=== PATIENT | female | born 1945 | race Caucasian/White ===

== ENCOUNTER → 2018-01-17 02:30 | Outpatient (CLI) | payer MEDICARE, SELFPAY ==
[2018-01-17 12:07] LABS: Abs Immature Grans 0.02 k/cumm (0.0-0.09); Absolute Basophil Count 0.04 k/cumm (0.0-0.2); Absolute Eosinophil Count 0.21 k/cumm (0.0-0.7); Absolute Monocyte Count 0.74 k/cumm (0.11-0.7); Absolute Neutrophil Count 4.89 k/cumm (1.2-6.7); Basophils % 0.5; Eosinophils % 2.9; HCT 37.1 % (36.0-46.0); Immature Grans % 0.3; Lymphocytes % 19.2; Mean Corpuscular Hemoglobin 34.8 pg (27.0-33.0); Mean Corpuscular Volume 99.2 fL (80-95); Mean Platelet Volume 10.4 fL (8.0-11.0); Monocytes % 10.1; Platelet Count 293 x1000/uL (130-400); RBC 3.74 m/cumm (4.00-5.20); RBC Distribution Width 17.9 % (11.7-14.6)
[2018-01-17 12:14] LABS: ALT 11 U/L (12-78); AST 28 U/L (15-37); Albumin 3.7 g/dL (3.4-5.0); Alkaline Phosphatase 104 U/L (46-116); Anion Gap 11.1 mmol/L (3-11); BUN 11 mg/dL (7-18); Bilirubin, Total 0.7 mg/dL (0.2-1.0); CO2 23.9 mmol/L (21.0-32.0); CREATININE 1.08 mg/dL (0.55-1.02); Calcium 8.9 mg/dL (8.5-10.1); Chloride 103 mmol/L (98-107); Estimated GFR 50.01 (mL/min/1.73m2); Glucose 126 mg/dL (70-100); Sodium 138 mmol/L (136-145); Total Protein 7.5 g/dL (6.4-8.2)
[2018-01-18 10:16] LABS: CEA 106.2 ng/ml
== END ==
PROVIDERS: PCP General Practice; Visit Provider Internal Medicine Medical Oncology
DX: C18.9 Malignant neoplasm of colon, unspecified (principal); C78.00 Secondary malignant neoplasm of unspecified lung; C18.6 Malignant neoplasm of descending colon
CPT/HCPCS: 36415; 80053; 82378; 85025

== ENCOUNTER 2018-02-08 02:00 | Outpatient (CLI) | payer MEDICARE, SELFPAY ==
[2018-02-08 13:29] LABS: Abs Immature Grans 0.02 k/cumm (0.0-0.09); Absolute Basophil Count 0.03 k/cumm (0.0-0.2); Absolute Eosinophil Count 0.16 k/cumm (0.0-0.7); Absolute Lymphocyte Count 1.36 k/cumm (1.2-3.4); Absolute Monocyte Count 0.72 k/cumm (0.11-0.7); Absolute Neutrophil Count 5.35 k/cumm (1.2-6.7); Basophils % 0.4; Eosinophils % 2.1; HCT 35.8 % (36.0-46.0); HGB 12.4 g/dL (12.0-15.5); Immature Grans % 0.3; Lymphocytes % 17.8; Mean Corp. HGB Concentration 34.6 g/dL (32.0-36.0); Mean Corpuscular Hemoglobin 34.3 pg (27.0-33.0); Mean Corpuscular Volume 98.9 fL (80-95); Mean Platelet Volume 10.2 fL (8.0-11.0); Monocytes % 9.4; Platelet Count 291 x1000/uL (130-400); RBC 3.62 m/cumm (4.00-5.20); RBC Distribution Width 17.9 % (11.7-14.6); White Blood Cell Count 7.64 k/cumm (4.4-10.8)
[2018-02-08 13:42] LABS: ALT 10 U/L (12-78); AST 34 U/L (15-37); Albumin 3.6 g/dL (3.4-5.0); Alkaline Phosphatase 112 U/L (46-116); Anion Gap 9.8 mmol/L (3-11); BUN 12 mg/dL (7-18); Bilirubin, Total 1.1 mg/dL (0.2-1.0); CO2 29.2 mmol/L (21.0-32.0); CREATININE 0.98 mg/dL (0.55-1.02); Calcium 9.1 mg/dL (8.5-10.1); Chloride 102 mmol/L (98-107); Estimated GFR 55.95 (mL/min/1.73m2); Glucose 136 mg/dL (70-100); Sodium 141 mmol/L (136-145); Total Protein 7.4 g/dL (6.4-8.2)
== END 2018-02-08 02:20 ==
PROVIDERS: PCP General Practice; Visit Provider Internal Medicine Medical Oncology
DX: C18.9 Malignant neoplasm of colon, unspecified (principal); C78.00 Secondary malignant neoplasm of unspecified lung
CPT/HCPCS: 36415; 80053; 85025

== ENCOUNTER 2018-03-31 10:54 | Inpatient (IN) | payer MEDICARE, SELFPAY ==
[2018-03-31] VITALS (69 sets, daily range): BP systolic 116–143; BP diastolic 51–99; PULSE 74–116; RESP 11–26; TEMP 36.7–37.7; O2SAT 92–100
--- NOTE | 2018-03-31 11:21 | DI.RAD_ITS ---
SYMPTOM/DIAGNOSIS: WEAKNESS PORTABLE AP CHEST: The patient is rotated on this examination. There is no infiltrate. A mass is superimposed over the central chest. The heart is grossly within normal limits in size. Additional imaging of this patient is suggested such as a PA and lateral examination.
--- NOTE | 2018-03-31 11:23 | W.ED.GENAD ---
Discharge Plan Disposition Patient Disposition: [facility] INPATIENT Condition: Serious Discharge Details Chief Complaint: GenMedical Clinical Impression: Non-sustained ventricular tachycardia, Colon cancer metastasized to lung, Acute hypokalemia Reason For Visit: KAYLEIGH Primary Care Provider: Hansel Casillas ED Provider: Fortino Pineda Home Meds and New Rx's Prescriptions: No Action multivitamin 1 EACH capsule 1 ea PO DAILY RF: 0 Medical Decision Making 72-year-old female with history of colon cancer status post resection and chemotherapy, metastatic disease to her lung with recurrence, here with failure to thrive at home, generalized weakness, unable to ambulate. Patient dehydrated. She was given IV fluid bolus. Labs reviewed and noted to hypokalemia. Will give potassium 20 mEq IV. Of note patient did have a run of nonsustained ventricular tachycardia captured on monitor where she was symptomatic with dizziness here in the emergency department. ECG was reviewed and interpreted by me: Sinus rhythm 76 bpm, normal axis, LVH, nondiagnostic. Chest x-ray interpreted by radiology: Posterior left chest mass with no infiltrate. I called and spoke with Dr. Sidhu who will admit the patient to telemetry. Palliative care consult was made and I spoke with Dr. Pink. HPI General Mode of arrival: EMS. Date/Time Provider Initiated Documentation: 03/31/18 11:09. Limitations to Documentation: no limitations. Information obtained by: patient and EMS. HPI Narrative: 72-year-old female with metastatic colon cancer to the lung, on maintenance chemotherapy, here with generalized weakness over the past 2 weeks, now severe, patient has not been able to get out of her bed for the past 1 week. Friends found her in her bed with severe weakness. She has not been able to get to the phone. She attempted to get out of bed and fell and crawled back into her bed. She had defecated and urinated in the bed. She has not had anything to eat or for a few days. Patient notes she is tired, feels generally ill and achy. She denies any focal pain. No assoc cough. Related Data Home Medications Medication Instructions Recorded Confirmed multivitamin 1 ea PO DAILY 08/19/12 03/31/18 Allergies Allergy/AdvReac Type Severity Reaction Status Date / Time aspirin AdvReac Intermediate Unverified 03/31/18 11:23 meperidine HCl [From Demerol] AdvReac Intermediate Nausea Unverified 03/31/18 11:23 oxaliplatim Allergy Severe Anaphylaxsi Uncoded 03/31/18 11:23 s General Stated Complaint: GenMedical RAGINI: 2 Review of Systems Review of Systems All systems reviewed & are unremarkable except as noted in HPI and below Constitutional Reports body ache(s) and Reports weakness Cardiovascular Denies chest pain Respiratory Denies cough Neurologic Reports weakness PFSH Medical History Colon cancer metastasized to lung (Acute) Social History Smoking/Tobacco Use Status: Former Tobacco Use Exam Const General: cooperative, no acute distress and frail appearing Nutritional Appearance: cachectic Orientation: alert, awake and oriented x3 HENMT Head: normocephalic and atraumatic Mouth: mucous membranes dry Eyes Conjunctivae: normal conjunctivae Sclera: normal sclerae EOM: EOM intact bilaterally Neck Neck: trachea midline and supple Resp Auscultation: clear to auscultation bilaterally, no rales, no rhonchi and no wheezes Cardio Jugular venous pressure: no JVD Rate: regular rate and not tachycardic Rhythm: regular rhythm GI Palpation: soft, not firm, no guarding, no masses, not rigid and nontender Back/Spine/Pelvis Pelvis: no pain with anterior-posterior compression and no pain with lateral compression Skin General skin exam: no rashes or lesions noted Neuro General: alert, awake, oriented x3, tone abnormal and moves all extremities Speech: speech normal Motor: strength abnormal (3-4/5 all ext ) Extrem General: no edema Psych Appearance: grossly normal Mental Status: mental status grossly normal Speech and Movement: speech and movement normal Course Vital Signs Temperature 36.9 C 03/31/18 11:17 Pulse 96 H 03/31/18 11:17 Respiratory Rate 14 03/31/18 11:17 Blood Pressure 117/89 03/31/18 11:17 Pulse Oximetry 99 03/31/18 11:17 Temperature 36.9 C 03/31/18 11:17 Temperature Source Temporal Artery Scan 03/31/18 11:17 Pulse 96 H 03/31/18 11:17 Respiratory Rate 14 03/31/18 11:17 Respiratory Effort 03/31/18 11:21 Blood Pressure 117/89 03/31/18 11:17 Blood Pressure Position Supine 03/31/18 11:17 Pulse Oximetry 99 03/31/18 11:17 Oxygen Delivery Method Room Air 03/31/18 11:17 Oxygen Flow Rate 0 03/31/18 11:17 Pain Level 4 03/31/18 11:17
--- NOTE | 2018-03-31 11:27 | ED.GENADUL_ITS ---
Discharge Plan Disposition Patient Disposition: [facility] INPATIENT Condition: Serious Discharge Details Chief Complaint: GenMedical Clinical Impression: Non-sustained ventricular tachycardia, Colon cancer metastasized to lung, Acute hypokalemia Reason For Visit: [facility]LEIGH Primary Care Provider: Hansel Casillas ED Provider: Fortino Pineda Home Meds and New Rx's Prescriptions: No Action multivitamin 1 EACH capsule 1 ea PO DAILY RF: 0 Medical Decision Making 72-year-old female with history of colon cancer status post resection and chemotherapy, metastatic disease to her lung with recurrence, here with failure to thrive at home, generalized weakness, unable to ambulate. Patient dehydrated. She was given IV fluid bolus. Labs reviewed and noted to hypokalemia. Will give potassium 20 mEq IV. Of note patient did have a run of nonsustained ventricular tachycardia captured on monitor where she was symptomatic with dizziness here in the emergency department. ECG was reviewed and interpreted by me: Sinus rhythm 76 bpm, normal axis, LVH, nondiagnostic. Chest x-ray interpreted by radiology: Posterior left chest mass with no infiltrate. I called and spoke with Dr. Sidhu who will admit the patient to telemetry. Palliative care consult was made and I spoke with Dr. Pink. HPI General Mode of arrival: EMS . Date/Time Provider Initiated Documentation: 03/31/18 11:09 . Limitations to Documentation: no limitations . Information obtained by: patient and EMS . HPI Narrative: 72-year-old female with metastatic colon cancer to the lung, on maintenance chemotherapy, here with generalized weakness over the past 2 weeks, now severe, patient has not been able to get out of her bed for the past 1 week. Friends found her in her bed with severe weakness. She has not been able to get to the phone. She attempted to get out of bed and fell and crawled back into her bed. She had defecated and urinated in the bed. She has not had anything to eat or for a few days. Patient notes she is tired, feels generally ill and achy. She denies any focal pain. No assoc cough. Related Data Home Medications Medication Instructions Recorded Confirmed multivitamin 1 ea PO DAILY 08/19/12 03/31/18 Allergies Allergy/AdvReac Type Severity Reaction Status Date / Time aspirin AdvReac Intermediate Unverified 03/31/18 11:23 meperidine HCl [From Demerol] AdvReac Intermediate Nausea Unverified 03/31/18 11 :23 oxaliplatim Allergy Severe Anaphylaxsi Uncoded 03/31/18 11:23 s General Stated Complaint: GenMedical RAGINI: 2 Review of Systems Review of Systems All systems reviewed & are unremarkable except as noted in HPI and below Constitutional Reports body ache(s) and Reports weakness Cardiovascular Denies chest pain Respiratory Denies cough Neurologic Reports weakness PFSH Medical History Colon cancer metastasized to lung (Acute) Social History Smoking/Tobacco Use Status: Former Tobacco Use Exam Const General: cooperative, no acute distress and frail appearing Nutritional Appearance: cachectic Orientation: alert, awake and oriented x3 HENMT Head: normocephalic and atraumatic Mouth: mucous membranes dry Eyes Conjunctivae: normal conjunctivae Sclera: normal sclerae EOM: EOM intact bilaterally Neck Neck: trachea midline and supple Resp Auscultation: clear to auscultation bilaterally, no rales, no rhonchi and no wheezes Cardio Jugular venous pressure: no JVD Rate: regular rate and not tachycardic Rhythm: regular rhythm GI Palpation: soft, not firm, no guarding, no masses, not rigid and nontender Back/Spine/Pelvis Pelvis: no pain with anterior-posterior compression and no pain with lateral compression Skin General skin exam: no rashes or lesions noted Neuro General: alert, awake, oriented x3, tone abnormal and moves all extremities Speech: speech normal Motor: strength abnormal (3-4/5 all ext ) Extrem General: no edema Psych Appearance: grossly normal Mental Status: mental status grossly normal Speech and Movement: speech and movement normal Course Vital Signs Temperature 36.9 C 03/31/18 11:17 Pulse 96 H 03/31/18 11:17 Respiratory Rate 14 03/31/18 11:17 Blood Pressure 117/89 03/31/18 11:17 Pulse Oximetry 99 03/31/18 11:17 Temperature 36.9 C 03/31/18 11:17 Temperature Source Temporal Artery Scan 03/31/18 11:17 Pulse 96 H 03/31/18 11:17 Respiratory Rate 14 03/31/18 11:17 Respiratory Effort 03/31/18 11:21 Blood Pressure 117/89 03/31/18 11:17 Blood Pressure Position Supine 03/31/18 11:17 Pulse Oximetry 99 03/31/18 11:17 Oxygen Delivery Method Room Air 03/31/18 11:17 Oxygen Flow Rate 0 03/31/18 11:17 Pain Level 4 03/31/18 11:17
[2018-03-31] MEDS: Lactated Ringers 500 ML IV (11:30)
[2018-03-31 11:39] LABS: Abs Immature Grans 0.01 k/cumm (0.0-0.09); Absolute Basophil Count 0.01 k/cumm (0.0-0.2); Absolute Eosinophil Count 0.01 k/cumm (0.0-0.7); Absolute Lymphocyte Count 0.64 k/cumm (1.2-3.4); Basophils % 0.1; Eosinophils % 0.1; HCT 36.3 % (36.0-46.0); HGB 12.4 g/dL (12.0-15.5); Immature Grans % 0.1; Lymphocytes % 6.6; Mean Corp. HGB Concentration 34.2 g/dL (32.0-36.0); Mean Corpuscular Hemoglobin 33.8 pg (27.0-33.0); Mean Corpuscular Volume 98.9 fL (80-95); Mean Platelet Volume 10.2 fL (8.0-11.0); Monocytes % 8.3; Neutrophils % 84.8; Platelet Count 295 x1000/uL (130-400); RBC 3.67 m/cumm (4.00-5.20); RBC Distribution Width 16.1 % (11.7-14.6); White Blood Cell Count 9.67 k/cumm (4.4-10.8)
[2018-03-31 11:54] LABS: ALT 22 U/L (12-78); AST 47 U/L (15-37); Albumin 3.3 g/dL (3.4-5.0); Alkaline Phosphatase 96 U/L (46-116); Anion Gap 18.6 mmol/L (3-11); BUN 29 mg/dL (7-18); Bilirubin, Total 1.3 mg/dL (0.2-1.0); CO2 24.4 mmol/L (21.0-32.0); Calcium 9.6 mg/dL (8.5-10.1); Chloride 103 mmol/L (98-107); Glucose 107 mg/dL (70-100); Magnesium 1.8 mg/dL (1.8-2.4); Potassium 3.1 mmol/L (3.5-5.1); Sodium 146 mmol/L (136-145); Total Protein 7.2 g/dL (6.4-8.2)
[2018-03-31 11:55] LABS: Troponin I < 0.02 ng/mL (0.00-0.06)
--- NOTE | 2018-03-31 12:04 | PDOC.ERCMPRO ---
Care Management Progress Note 03/31-Patient presented to the Emergency Department via [facility]. Per [facility], patient was found on couch, unable to get off of couch for days, urine and feces every where. Last seen 9 days ago by her friend. Friend arrived at Magalis's home this morning and couldn't get her to answer door. Police were called and they entered home to find Magalis lying on the couch in urine and feces. [facility] states the house was very cold, no heat. Magalis sees oncology every 6 weeks at [facility] for Colon Ca. with mets to the lungs. Used to see Dr. Milan but she will be seeing a different oncologist at her next visit. Magalis does not know the name of the new oncologist as it will be her first time seeing him. Magalis states she is on a maintenance drug that she takes at home. Dr. Casillas is Magalis's PCP but she hasn't been to see him since 2013 (verified with Dr. Casillas's lipcoat sprayer) as the oncologists have been managing her health. Met with Magalis and her friend Ana, who found her this morning, to discuss the home situation. Magalis states that she tried to get to the phone. She attempted to get off the couch several times but was weak and fell to the floor. Magalis states she then crawled back onto the couch. Magalis states she could not reach the phone. Magalis states she has not ate in over five days. Friend Ana said she tried calling and there was no answer. After multiple attempts to reach Magalis, she went to check on her and that's when the police were called. Ana stated she was calling to have furnace fixed, Magalis stated she had fuel delivered a week or so ago and thinks there is something wrong with boiler. Magalis has no services or assisted devices, prior to two weeks ago, she was completely independent and driving. Friend Peace is caring for cat for which Magalis is very concerned about. Discussed family with Magalis and she states she has no family and that her friends are her family. [facility]. Called Dali in access and she will update the chart. Friend Ana spoke with me in the hallway and stated that Magalis's house is inhabitable, it has not been cleaned in years. She can not go back there and live. Explained to Ana that Magalis has the right to go home and no one can prevent that. Also explained that Magalis's home situation will be addressed prior to discharge. Dr. Pamela Pineda requested Palliative Consult and he has spoken with Dr. Pink. Order in and this CM will send to Palliative office. Discussed with Magalis her home situation. Possibility that she may need a rehab stay prior to returning home. Brief over view on home health services, assisted devices, meals on wheels, Case Management through [place] [facility] Aging, and life line. Magalis states she is definitely interested in life line. This CM has reported off to inpatient care management as patient is being admitted.
--- NOTE | 2018-03-31 12:35 | CMPROGNOTE_ITS ---
Care Management Progress Note 03/31-Patient presented to the Emergency Department via [facility]. Per [facility], patient was found on couch, unable to get off of couch for days, urine and feces every where. Last seen 9 days ago by her friend. Friend arrived at Magalis's home this morning and couldn't get her to answer door. Police were called and they entered home to find Magalis lying on the couch in urine and feces. [facility] states the house was very cold, no heat. Magalis sees oncology every 6 weeks at [facility] for Colon Ca. with mets to the lungs. Used to see Dr. Milan but she will be seeing a different oncologist at her next visit. Magalis does not know the name of the new oncologist as it will be her first time seeing him. Magalis states she is on a maintenance drug that she takes at home. Dr. Casillas is Magalis's PCP but she hasn't been to see him since 2013 (verified with Dr. Casillas's hospital coordinator) as the oncologists have been managing her health. Met with Magalis and her friend Ana, who found her this morning, to discuss the home situation. Magalis states that she tried to get to the phone. She attempted to get off the couch several times but was weak and fell to the floor. Magalis states she then crawled back onto the couch. Magalis states she could not reach the phone. Magalis states she has not ate in over five days. Friend Ana said she tried calling and there was no answer. After multiple attempts to reach Magalis, she went to check on her and that's when the police were called. Ana stated she was calling to have furnace fixed, Magalis stated she had fuel delivered a week or so ago and thinks there is something wrong with boiler. Magalis has no services or assisted devices, prior to two weeks ago, she was completely independent and driving. Friend Peace is caring for cat for which Magalis is very concerned about. Discussed family with Magalis and she states she has no family and that her friends are her family. [facility] has [facility] that [facility]. Called Dali in access and she will update the chart. Friend Ana spoke with me in the hallway and stated that Magalis's house is inhabitable, it has not been cleaned in years. She can not go back there and live. Explained to Ana that Magalis has the right to go home and no one can prevent that. Also explained that Magalis's home situation will be addressed prior to discharge. Dr. Pamela Pineda requested Palliative Consult and he has spoken with Dr. Pink. Order in and this CM will send to Palliative office. Discussed with Magalis her home situation. Possibility that she may need a rehab stay prior to returning home. Brief over view on home health services, assisted devices, meals on wheels, Case Management through [place] on Aging, and life line. Magalis states she is definitely interested in life line. This CM has reported off to inpatient care management as patient is being admitted.
[2018-03-31] MEDS: POTASSIUM CHLORIDE 20 MEQ/100 ML BAG 50 MEQ IVPB (13:37)
--- NOTE | 2018-03-31 17:35 | W.PM.HP.N ---
Date of service: 03/31/18 Time of Service: 17:35 Assessment and Plan (1) Colon cancer metastasized to lung: Current visit: No Status: Acute With generalized weakness and failure to thrive. She has been on maintenance chemo with Xeloda. Her visit note from her last oncology appointment notes worsening tumor marker. She is clearly declining. She has lost a significant amount of weight in recent months. Plan to contact her oncologist tomorrow to discuss her case. Plan to give IV fluids and replace electrolytes. UA pending to rule out UTI. Analgesics and antiemetics ordered for PRN use. Palliative care following. She desires to be [employer] but would accept IV fluids and antibiotics. Continue supportive measures. (2) Hypokalemia: Current visit: Yes Status: Acute She has received supplementation. Reassess potassium in the morning. (3) Discharge planning issues: Current visit: Yes Status: Acute She is a DNR/DNI. She has been seen by palliative care. She desires comfort measures only, however, she will accept IV fluids and antibiotics. We will plan to give her IV fluids overnight and replace her electrolytes and reassess in the morning. She may be a candidate for hospice if she is interested. (4) DVT prophylaxis: Current visit: Yes Status: Acute Subcutaneous Lovenox. History of Present Illness Chief Complaint: Weakness, failure to thrive, diarrhea Narrative: Magalis is a very pleasant 72 year old female with a history of Colon cancer with lung metastasis, with history of colon resection, currently taking oral chemotherapy, Xeloda, who presented to the emergency department today with generalized weakness. She reports that she has been in bed for 5-6 days, she tried to get up out of bed 3 times and fell every time and had to pull herself back into bed. She was covered in feces and urine as she was unable to get to the bathroom. She had not had anything to eat or drink in several days. Her friend went to her house to check on her and the door was locked so she contacted authorities. At that time she was transported to the hospital. She appeared very dry on presentation. In the emergency department, she had labs drawn which revealed hypokalemia with a potassium of 3.1, for which she received supplementation. Her BUN was elevated at 29. She was noted to have a run of nonsustained ventricular tachycardia captured on monitor where she was symptomatic with dizziness. She had an ECG which revealed Normal Sinus rhythm 76 bpm, normal axis, LVH, nondiagnostic. Her chest x-ray revealed Posterior left chest mass with no infiltrate. She received IV fluids. Given that she has generalized weakness with failure to thrive and inability to ambulate as well as hypokalemia in the setting of Colon cancer with mets, she was admitted to the med/surg floor for further evaluation and management. She was seen by Dr. Pink, Palliative care, who discussed code status and goals of care with her. She has verbalized that she would like comfort care, she is open to receiving IV fluids and antibiotics, but does not want treatment further than that. She reports feeling sore after laying in bed for so many days. She denies having any fevers or chills, just feels very weak. She has no shortness of breath, cough or wheezing. No chest pain/pressure, palpitations, edema. No nausea, vomiting, she does have diarrhea which is chronic and related to her oral chemotherapy. She denies any skin breakdown from being in bed, but she does have a cutaneous reaction to the palms of her hands related to her chemo. She notes that her toe nails have gotten of her control. She denies any other concerns. Review of Systems Review of Systems All systems reviewed & are unremarkable except as noted in HPI and below PFSH Medical History Colon cancer metastasized to lung (Acute) Frequent falls (Acute) History of herniated intervertebral disc (Acute) Hunger, thirst, exposure, and neglect (Acute) Malignant cachexia (Acute) Poor self monitoring (Acute) Social History Smoking/Tobacco Use Status: Former Tobacco Use Surgical History History of colon resection (Chronic) H/O dilation and curettage (Acute) Meds Home Medications Medication Instructions Recorded Confirmed Type multivitamin 1 ea PO DAILY 08/19/12 03/31/18 History capecitabine 2 - 3 tab PO DIRECTED 03/31/18 03/31/18 History Allergies Allergy/AdvReac Type Severity Reaction Status Date / Time aspirin AdvReac Intermediate Unverified 03/31/18 11:23 meperidine HCl [From Demerol] AdvReac Intermediate Nausea Unverified 03/31/18 11:23 oxaliplatim Allergy Severe Anaphylaxsi Uncoded 03/31/18 11:23 s Exam Narrative Exam Narrative: General: Magalis is a 72 year old female who appears chronically ill and frail. She is thin and cachectic. She is awake, alert and oriented, pleasant and cooperative. HEENT: her mucous membranes are dry, eyes appear sunken, pupils are equal and round, conjunctivae are mildly injected, sclera are nonicteric. Respiratory: Respirations are even and unlabored, lung sounds are clear to auscultation throughout, no rales, rhonchi or wheeze. Cardiac: Heart has a regular rate and rhythm, normal S1 and S2. No murmur, clicks, gallops or rubs. GI: Abdomen thin, scaphoid, hypoactive bowel sounds throughout. Abdomen soft, nontender on palpation with no masses appreciated. Skin: Skin is very dry and flaking. The palms of her hands are red and cracking bilaterally. The soles of her feet are dry and scaling. Toenails are hypertrophic. Extremities: Without clubbing, cyanosis or edema. Peripheral pulses are intact bilaterally. Results Labs : 04/05/18 06:05 04/02/18 07:05 Laboratory Results - last 24 hr 03/31/18 03/31/18 11:30 11:30 WBC 9.67 RBC 3.67 L Hgb 12.4 Hct 36.3 MCV 98.9 H MCH 33.8 H MCHC 34.2 RDW 16.1 H Plt Count 295 MPV 10.2 Immature Gran % 0.1 Neutrophils % 84.8 Lymphocytes % 6.6 Monocytes % 8.3 Eosinophils % 0.1 Basophils % 0.1 Absolute Neutrophils 8.20 H Absolute Lymphocytes 0.64 L Absolute Monocytes 0.80 H Absolute Eosinophils 0.01 Absolute Basophils 0.01 Sodium 146 H Potassium 3.1 L Chloride 103 Carbon Dioxide 24.4 Anion Gap 18.6 H BUN 29 H Creatinine 0.80 Estimated GFR/1.73 m2 >= 60.00 Glucose 107 H Calcium 9.6 Magnesium 1.8 Total Bilirubin 1.3 H AST 47 H ALT 22 Alkaline Phosphatase 96 Troponin I < 0.02 Total Protein 7.2 Albumin 3.3 L Last Vital Signs Temp 36.9 C 03/31/18 11:17 Pulse 74 03/31/18 16:15 Resp 18 03/31/18 15:40 BP 141/54 H 03/31/18 16:15 Pulse Ox 95 03/31/18 16:15
[2018-03-31] MEDS: Enoxaparin 40 MG/0.4 ML SYR SC (19:00)
[2018-04-01] VITALS (8 sets, daily range): BP systolic 92–124; BP diastolic 60–69; PULSE 69–107; RESP 16–20; TEMP 36.2–37.8; O2SAT 96–98
[2018-04-01] MEDS: SODIUM CHLORIDE 0.45% 1,000 ML 100 ML IV (02:58)
[2018-04-01] MEDS: Acetaminophen 325 MG TAB PO (02:58)
[2018-04-01 07:16] LABS: HCT 34.9 % (36.0-46.0); HGB 12.3 g/dL (12.0-15.5); Mean Corp. HGB Concentration 35.2 g/dL (32.0-36.0); Mean Corpuscular Hemoglobin 34.6 pg (27.0-33.0); Mean Platelet Volume 10.4 fL (8.0-11.0); Platelet Count 262 x1000/uL (130-400); RBC 3.56 m/cumm (4.00-5.20); RBC Distribution Width 15.9 % (11.7-14.6)
[2018-04-01 07:33] LABS: Anion Gap 7.9 mmol/L (3-11); BUN 17 mg/dL (7-18); CO2 29.1 mmol/L (21.0-32.0); CREATININE 0.79 mg/dL (0.55-1.02); Calcium 8.9 mg/dL (8.5-10.1); Chloride 100 mmol/L (98-107); Glucose 141 mg/dL (70-100); Magnesium 1.3 mg/dL (1.8-2.4); Sodium 137 mmol/L (136-145); TSH (W/Ref FT4) 2.37 uIU/mL (0.358-3.74)
[2018-04-01 07:37] LABS: Potassium 2.7 mmol/L (3.5-5.1)
[2018-04-01] MEDS: MAGNESIUM SULFATE 4 GM/100 ML BAG IVPB (09:41)
[2018-04-01] MEDS: Potassium Chloride 20 MEQ TABCR 40 MEQ PO ×3 (09:41→20:36)
--- NOTE | 2018-04-01 10:53 | CHAPLAIN ---
Magalis was in bed when I took a prayer shawl to her this morning. She would prefer to sleep than visit and asked that I return later in the day.
--- NOTE | 2018-04-01 11:12 | PDOC.CMIN ---
- If Service Date Differs Date of service: 04/01/18 Time of Service: 11:12 Care Management Initial Assess REASON FOR HOSPITALIZATION:: Hypokalemia PAST MEDICAL HISTORY/PAST SURGICAL HISTORY:: Colon cancer metastasized to lung (Acute). History of herniated intervertebral disc (Acute). H/O dilation and curettage (Acute). History of colon resection (Chronic) PREVIOUS FUNCTIONAL STATUS/SOCIAL/FAMILY SUPPORTS:: Magalis Escobar) resides alone in [place]. She states that she has no family locally and depends on her friends/neighbors for support. Natalie states that she has been fighting the cancer for 6 years, and I'm tired. CURRENT FUNCTIONAL STATUS:: Natalie states that she is very tired when this tech writer visits. She closes her eyes frequently throughout discussion. ADVANCE DIRECTIVES:: On file - Peace Polo. COLST - Dr. Pink completed a new COLST with Magalis Has patient been provided with information about the portal?: Yes Did the patient sign up for the portal?: No CODE STATUS:: DNR/DNI INSURANCE COVERAGE / FINANCIAL ISSUES:: Medicare CURRENT HOME/COMMUNITY SERVICES/EQUIPMENT:: Currently Magalis has no services in the community. PRIMARY CARE PHYSICIAN:: Dr. Casillas POTENTIAL DISCHARGE NEEDS:: SNF placement - CM met with Magalis and she is receptive to SNF placement. She states that she wants to get stronger prior to returning home on hospice. Magalis is receptive to referrals to [facility], and [facility]. PATIENT/FAMILY EDUCATION NEEDS:: Review DC instructions, any limitations, and ongoing DC planning discussion. Discuss Ask Me Three ANTICIPATED BARRIERS TO DISCHARGE:: None identified at this time. TRANSPORTATION:: Via private vehicle with friend. PLAN:: Referrals have been placed at [facility], [facility], and [facility] in regards to placement. CM is currently awaiting decision from the above facilities. Natalie will continue to see Palliative during her stay. CM received a call from [facility], as well as [facility] declining Natalie. [facility]& is reviewing referral.
--- NOTE | 2018-04-01 11:20 | PHARADMIT ---
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 Objective No VS, pain:3 no labs Having BMs Assessment Receiving [place] PO TID and bolus Morphine IV prn Plan CM working towards discharge. Patient must sell home before she will qualify for any assistance with her situation. 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 Objective No VS, Pain; 11/07 Assessment May start a pain med infusion instead of [place] & bolus Morphine. Lovenox dc'd Plan Possible discharge to SNF or Hospice if CM can manage it. Original Note: Addendum entered by Jeremy Beck III 04/08/18 15:49: Pharmacy Note Subjective Discussion of low dose Morphine CADD, Patient considering. Objective VS-OK pain:11/07 No Labs, Wgt-43.8 kg Had BM today Assessment Presently using [place] TID with Morphine IV prn. Plan May go to OPERATIONS TRAINER on swing bed Original Note: Addendum entered by Mary Jane Peralta 04/07/18 15:54: Pharmacy Note Subjective CM working on placement of pt, may convert to swingbed Objective vs ok, no labs, pain 2-11/07 Assessment hydrocod/apap increased to TID, Plan follow for pain control and possible side effects form narcotics Original Note: Addendum entered by Jeremy Beck III 04/06/18 10:54: In morning meeting it was discussed that patient will be OPERATIONS TRAINER soon, Not sure if [facility] will take patient back. Presently her pain med needs are being met with Oral [place] & Morphine IV VS-OK Pain:6 No Labs BM today. Original Note: Addendum entered by Jeremy Beck III 04/05/18 12:06: Pharmacy Note Subjective History of colon cancer with resection & metastasized to lung. Admitted for generalized weakness & dehydration. Experiencing pain but reluctant to use narcotics. Objective BP-98/57 HR-88 pain:7/10 H&H-10.5/31.5 Plts-235 Wgt-45kg Reg BMs Assessment [place] BID ANJUM may be increased to TID /QID. Plan CM note that patient has been refused by most local SNF's but awaiting H&R's reply. Original Note: Admission Pharmacy Clinical Review FAILURE to thrive, Hypokalemia,weakness, nonsustained V-tac Code Status DNR/DNI Current Weight Wgt- 41.1 kg Renally Cleared and Narrow Therapeutic Index Meds CrCl~ 41.84 mL/min Meds-OK QTc Value / Action Taken QTc-432 na BP Control, Fever BP- 100/61 Tmax-37.6C Electrolytes reviewed Na- 137 K+2.7 Mag-1.3 DVT Prophylaxis Lovenox Opiate Usage / Scheduled Bowel Regimen Ordered Yes Yes Plt/SCr for Heparin / Enoxaparin Plts-262 SCr-0.79 INR for Warfarin NA H/H stable, WBC/Bands H&H- 12.3/34.9 WBC-11.00 Antibiotic appropriateness none Cultures and Sensitivities none Surgical ABX d/c within 24 hr NA DM control / Insulin Dosing BG-141 Heart Failure (Check EF%) (FERNY's, B-Block, Diuretics) none IV to PO Switch No Home Meds Reviewed Yes Home Meds Not Ordered Capecitabine tabs, M-Vites Comments
[2018-04-01] MEDS: POTASSIUM CHLORIDE 10 MEQ/100 ML BAG 100 MEQ IVPB ×2 (11:37→13:14)
--- NOTE | 2018-04-01 12:37 | PCNE_ITS ---
Date of service: 03/31/18 Time of Service: 17:35 History of Present Illness Chief Complaint: advanced colon cancer, inability to care for self Narrative: Magalis Batista is a 72-year-old woman who was diagnosed with metastatic colon cancer approximately 6 years ago. She initially had a partial colectomy. She does not have a colostomy. She was followed by Dr. carranza, up until he left the area in January 2018. She is due to see her new oncologist Dr. Mario Liz on 04-08-18. She has continued on maintenance chemo despite the fact that her tumor markers are rising and she is feeling clinically worse. Per his notes, Dr. Carranza mentioned to her that he thought the chemotherapy was no longer working. At his last visit with her in January 2018, he suggested she change to a different chemotherapy. She was not interested. She hates taking medication. The only medication she takes currently is her maintenance chemo, capecitabine. She tells me I promised myself I would not let my cancer treatment become my life, but it has. She tells me that she has had progressive weakness over the last several months. She is lost 20 pounds since December. She is cachectic. She lives alone. She tells me I ran out of food a while ago. I asked her how she ran out of food. She said I kept trying to get out of bed to get water and take care of my estephania. I fell 3 times in 1 week. The morning of admission her friend Ana age 89 came by to check on her because she didn't show to a usual get-together. She was not answering her phone. She did not come to the door, so Alpa called the police. Natalie, as she is known, tells me she lay in bed for 1 week prior to her admission, unable to care for herself. She has had both fecal and urinary incontinence. She is not sure why she ran out of food. She thinks it is because she had no strength to go out. She says she has enough money to buy food. He seems relieved to be admitted to the hospital. She is completely worn out. Consults Consult date: 03/31/18 Requesting physician: Fortino Pineda Assessment and Plan (1) Malnutrition: Current visit: Yes Status: Acute (2) Fecal incontinence: Current visit: Yes Status: Acute (3) Urinary incontinence: Current visit: Yes Status: Acute (4) Goals of care, counseling/discussion: Current visit: Yes Status: Acute Magalis Dunaway is a 72-year-old woman unable to care for herself in her home. She was bedbound for a week prior to this admission. She has cachexia with a BMI of 15.5. She had experienced both fecal and urinary incontinence for a week prior to admission. Even while I was examining her, she was still covered with dried feces and urine. She is quite clear that she is not interested in any further treatment for her metastatic colon cancer. Ideally she would like to go home but she does not know when she would be able to. She recognizes that she is very weak. She had not eaten or had much to drink all week prior to admission. She says that most of all she feels annoyed. She did not want the end of her life to look like this. She does have nieces and nephews but they are in [place] and she is out of touch with them. She has a friend Peacemarcial Polo who works at [employer] in [employer]. She lists Peace as her DPOA. I did not speak with Peace today. We reviewed and filled out a COLST form. She is quite clear she wants to be DNR /DNI. On this admission she will except IV fluids and antibiotics if indicated. She is not sure if she wants either in the future. She recognizes that she cannot return home alone. None of her friends would be able to move in with her. She does have someone who will take care of her cat for her. We discussed discharge planning. We talked about her going from the hospital to a SNF. She was interested in the [facility] half-way, and [facility] in that order. She is unsure whether she will keep her appointment with Dr. Mario Liz oncology. She does not see the point of it. She would like to be strong enough so she can enjoy her last weeks. She is willing to stay in inpatient through the weekend to get stronger get IV fluids and may be take antibiotics if indicated. Mariel Neumann nurse practitioner will be admitting her. I will follow along. She would appreciate both a drive away driver visit and singing from the [employer] group. (5) Colon cancer metastasized to lung: Current visit: No Status: Acute (6) Failure to thrive: Current visit: Yes Status: Acute not correctable due to advancing colon cancer can correct her electrolytes temporarily, but not long-term fix no appetite, early satiety due to cancer (7) Generalized weakness: Current visit: Yes Status: Acute not interested in aggressive PT may want some so she can go to the bathroom on her own she's mortified that she was found covered in feces and urine Review of Systems Review of Systems All systems reviewed & are unremarkable except as noted in HPI and below Constitutional Reports anorexia, Reports body ache(s), Reports daytime sleepiness, Reports fatigue, Reports frequent falls, Reports lethargy, Reports malaise, Reports poor appetite, Reports weakness and Reports weight loss Eyes Reports requires corrective lenses ENT Reports halitosis, Reports dizziness and Reports sore throat Cardiovascular Reports chest pain with activity, Reports lightheadedness and Reports dyspnea on exertion Respiratory Reports dyspnea on exertion Gastrointestinal Reports abdominal pain, Reports melena, Reports bloating, Reports change in stool character, Reports cramping, Reports early satiety, Reports fecal incontinence, Reports diarrhea, Reports loose stools, Reports nausea and Reports vomiting Genitourinary Reports pelvic pain and Reports urinary incontinence Musculoskeletal Reports muscle weakness Integumentary/Breasts Reports rash, Reports skin ulcer, Reports sores, Reports unusual bruising and Reports wounds Neurologic Reports dizziness, Reports frequent falls, Reports memory loss and Reports weakness Psychiatric Reports abnormal sleep pattern, Reports depression, Reports difficulty concentrating, Reports hopelessness and Reports memory loss Endocrine Reports cold intolerance and Reports fatigue Hematologic/Lymphatic Reports easy bruising PFSH Medical History Colon cancer metastasized to lung (Acute) Frequent falls (Acute) History of herniated intervertebral disc (Acute) Hunger, thirst, exposure, and neglect (Acute) Malignant cachexia (Acute) Poor self monitoring (Acute) Social History Smoking/Tobacco Use Status: Former Tobacco Use Surgical History History of colon resection (Chronic) H/O dilation and curettage (Acute) Exam Const General: cooperative, disheveled, frail appearing and ill appearing Nutritional Appearance: cachectic Orientation: alert, awake, oriented to person and oriented to place HENMA Head: normocephalic and atraumatic Ears: hearing grossly normal bilaterally General nose exam: external nose normal Face and sinus: dry mucous membranes Mouth: malodorous breath Eyes Conjunctivae: conjunctivae normal Sclera: sclerae normal Neck Neck: normal visual inspection, no lymphadenopathy and no JVD Resp Effort & Inspection: normal respiratory effort and able to speak in complete sentences Auscultation: clear to auscultation bilaterally Cardio Jugular venous pressure: no JVD Rate: tachycardic Rhythm: regular rhythm Heart Sounds: S1 normal and S2 normal Bruits: abdominal aortic bruit GI Inspection: normal to inspection, scaphoid, scar and visible pulsation Palpation: firm Auscultation: hypoactive bowel sounds Back/Spine/Pelvis Back: back tenderness Skin General skin exam: dry skin, ecchymosis, lichenification, scars and turgor decreased Lesions: lesion noted (pressure ulcer, sacral) Nails: discolored and dystrophic Other: long finger and toenails, no clipping for a while, it appears Neuro General: alert, awake and no focal motor deficits Cranial Nerves: tongue midline, gag reflex normal and hearing normal Cognition: normal cognition Speech: speech normal Extrem General: calf tenderness and muscle atrophy Psych Appearance: disheveled Mental Status: mental status grossly normal Speech and Movement: speech clear Mood: anxious mood Affect: sad and anxious affect Attitude: cooperative Thought Process: normal Thought Content: normal Insight: fair Judgment: fair Results Last Vital Signs Temp 99.7 F H 04/01/18 11:30 Pulse 82 04/01/18 11:30 Resp 18 04/01/18 11:30 BP 100/61 04/01/18 11:30 Pulse Ox 97 04/01/18 11:30 Labs : 04/01/18 06:48 04/01/18 06:48 Laboratory Results - last 24 hr 04/01/18 04/01/18 06:48 06:48 WBC 11.00 H RBC 3.56 L Hgb 12.3 Hct 34.9 L MCV 98.0 H MCH 34.6 H MCHC 35.2 RDW 15.9 H Plt Count 262 MPV 10.4 Sodium 137 Potassium 2.7 L* Chloride 100 Carbon Dioxide 29.1 Anion Gap 7.9 BUN 17 D Creatinine 0.79 Estimated GFR/1.73 m2 >= 60.00 Glucose 141 H Calcium 8.9 Magnesium 1.3 L TSH 2.37
--- NOTE | 2018-04-01 14:10 | INITIAL_ITS ---
- If Service Date Differs Date of service: 04/01/18 Time of Service: 11:12 Care Management Initial Assess REASON FOR HOSPITALIZATION:: Hypokalemia PAST MEDICAL HISTORY/PAST SURGICAL HISTORY:: Colon cancer metastasized to lung ( Acute). History of herniated intervertebral disc (Acute). H/O dilation and curettage (Acute). History of colon resection (Chronic) PREVIOUS FUNCTIONAL STATUS/SOCIAL/FAMILY SUPPORTS:: Magalis Escobar) resides alone in [place]. She states that she has no family locally and depends on her friends/ neighbors for support. Natalie states that she has been fighting the cancer for 6 years, and I'm tired. CURRENT FUNCTIONAL STATUS:: Natalie states that she is very tired when this senior underwriter visits. She closes her eyes frequently throughout discussion. ADVANCE DIRECTIVES:: On file - Peace Polo. COLST - Dr. Pink completed a new COLST with Magalis Has patient been provided with information about the portal?: Yes Did the patient sign up for the portal?: No CODE STATUS:: DNR/DNI INSURANCE COVERAGE / FINANCIAL ISSUES:: Medicare CURRENT HOME/COMMUNITY SERVICES/EQUIPMENT:: Currently Magalis has no services in the community. PRIMARY CARE PHYSICIAN:: Dr. Casillas POTENTIAL DISCHARGE NEEDS:: SNF placement - CM met with Magalis and she is receptive to SNF placement. She states that she wants to get stronger prior to returning home on hospice. Magalis is receptive to referrals to [facility], and [facility]&. PATIENT/FAMILY EDUCATION NEEDS:: Review DC instructions, any limitations, and ongoing DC planning discussion. Discuss Ask Me Three ANTICIPATED BARRIERS TO DISCHARGE:: None identified at this time. TRANSPORTATION:: Via private vehicle with friend. PLAN:: Referrals have been placed at [facility], [facility]&, and [facility] in regards to placement. CM is currently awaiting decision from the above facilities. Natalie will continue to see Palliative during her stay. CM [facility] well as [facility] declining Natalie. [facility]& is reviewing referral.
--- NOTE | 2018-04-01 14:24 | W.PM.PROGNOT ---
Documented by User: Mariel Neumann NP 04/02/18 13:41 Date of Service Date of service: 04/01/18 Time of Service: 14:24 Assessment and Plan (1) Colon cancer metastasized to lung: Current visit: No Status: Acute With generalized weakness and failure to thrive. She has been on maintenance chemo with Xeloda. Her visit note from her last oncology appointment notes worsening tumor marker. She is clearly declining. She has lost a significant amount of weight in recent months. She is underweight by BMI and appears cachectic. Continue IV fluids and replace electrolytes. Hold off on UA as she is declining straight catheter at this point. Analgesics and antiemetics ordered for PRN use. Palliative care following. 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 She is agreeable with electrolyte replacement as well. Continue supportive measures. (2) Hypokalemia: Current visit: Yes Status: Acute Continues to be low. She has received supplementation. Reassess potassium in the morning. (3) Hypomagnesemia: Current visit: Yes Status: Acute With ongoing losses through diarrhea. Magnesium is low today at 1.3, she has received supplementation. Continue to follow. (4) Discharge planning issues: Current visit: Yes Status: Acute She is a DNR/DNI. Palliative care is following her. She desires comfort measures only, however, she will accept IV fluids and antibiotics. She may be a candidate for hospice if she is interested. She does not feel safe going home. Her friends have reported that her home is unkempt. She will need placement upon discharge. (5) DVT prophylaxis: Current visit: Yes Status: Acute Subcutaneous Lovenox. Subjective Interval history since last seen: Magalis is a very pleasant 72 year old female with a history of Colon cancer with lung metastasis, with history of colon resection, who has been on oral maintenance chemotherapy, who presented to the ED yesterday with generalized weakness. She had been in bed for 5-6 days, unable to get out of bed. She tried to get up out of bed 3 times, fell every time and had to pull herself back into bed. She was covered in feces and urine as she was unable to get to the bathroom. She had not had anything to eat or drink in several days. Her friend went to her house to check on her and the door was locked so she contacted authorities. At that time she was transported to the hospital. In the ED, she was noted to be hypokalemic with a potassium of 3.1, she received supplementation and again had low potassium today at 2.7. Her magnesium was also low today at 1.3. She has ongoing losses with diarrhea, which she feels is improving. She is incontinent of both urine and stool. We discussed that to obtain a urine sample, she would need to be catheterized, she refused straight cath. Even after we discussed that she may have a UTI and that treatment could possibly make her feel better, she declined. She states, I am just so tired of fighting this. She admits that she knows it is not safe for her to go home. She is agreeable to transfer to a long-term facility when she is ready. She is leaning in the direction of comfort care, she is agreeable to having her electrolytes replaced. She feels achy, she does not have significant pain. She is using low dose IV morphine as needed for pain control. Exam Narrative Exam Narrative: General: Magalis is a 72 year old female who appears chronically ill and frail. She is thin and cachectic. She is sleepy but opens eyes to verbal stimuli. She is alert and oriented, pleasant and cooperative. HEENT: her mucous membranes are moist, eyes appear sunken, pupils are equal and round, conjunctivae are noninjected, sclera are nonicteric. Respiratory: Respirations are even and unlabored, lung sounds are clear to auscultation throughout, no rales, rhonchi or wheeze. Cardiac: Heart has a regular rate and rhythm, normal S1 and S2. No murmur, clicks, gallops or rubs. GI: Abdomen thin, scaphoid, hypoactive bowel sounds throughout. Abdomen soft, nontender on palpation with no masses appreciated. Skin: Skin is very dry and flaking. The palms of her hands have less erythema, they are dry and cracking bilaterally. The soles of her feet are dry and scaling. Toenails are hypertrophic. Extremities: Without clubbing, cyanosis or edema. Peripheral pulses are intact bilaterally. Objective Objective Clinical Data: Abnormal lab results 04/01/18 04/01/18 Range/Units 06:48 06:48 WBC 11.00 H (4.4-10.8) k/cumm RBC 3.56 L (4.00-5.20) m/cumm Hct 34.9 L (36.0-46.0) % MCV 98.0 H (80-95) fL MCH 34.6 H (27.0-33.0) pg RDW 15.9 H (11.7-14.6) % Potassium 2.7 L* (3.5-5.1) mmol/L Glucose 141 H (70-100) mg/dL Magnesium 1.3 L (1.8-2.4) mg/dL Vital Signs Temperature 37.6 C H 04/01/18 11:30 Temperature Source Tympanic 04/01/18 11:30 Pulse 82 04/01/18 11:30 Pulse Rhythm Regular 04/01/18 07:35 Pulse 86 03/31/18 18:50 Respiratory Rate 18 04/01/18 11:30 Respiratory Effort Non-Labored 04/01/18 07:35 Respiratory Depth Normal 04/01/18 07:35 Respiratory Pattern Normal 04/01/18 07:35 Blood Pressure 100/61 04/01/18 11:30 Blood Pressure Mean 94 03/31/18 18:01 Blood Pressure Position Supine 03/31/18 17:00 Pulse Oximetry 97 04/01/18 11:30 Oxygen Delivery Method Room Air 04/01/18 11:30 Oxygen Flow Rate 0 04/01/18 11:30 Pain Level 6 04/01/18 07:35 Intake & Output 03/31/18 04/01/18 04/01/18 23:59 11:59 23:59 Intake Total 1360 / 1360 100 / 100 Balance 1360 / 1360 100 / 100 Weight 40.3 kg 41.1 kg Intake: IV 1000 / 1000 100 / 100 Sodium Chloride 0.45% 1,000 ml 1000 / 1000 @ 100 mls/hr IV IN[facility]USION [facility] Rx #:[id number] Oral 360 / 360 Other: Comment incontinent large amount of urine Stool Size Large Stool Characteristics Liquid Brown Voiding Methods Diaper Incontinent Laboratory Results WBC 11.00 k/cumm (4.4-10.8) H 04/01/18 06:48 RBC 3.56 m/cumm (4.00-5.20) L 04/01/18 06:48 Hgb 12.3 g/dL (12.0-15.5) 04/01/18 06:48 Hct 34.9 % (36.0-46.0) L 04/01/18 06:48 MCV 98.0 fL (80-95) H 04/01/18 06:48 MCH 34.6 pg (27.0-33.0) H 04/01/18 06:48 MCHC 35.2 g/dL (32.0-36.0) 04/01/18 06:48 RDW 15.9 % (11.7-14.6) H 04/01/18 06:48 Plt Count 262 x1000/uL (130-400) 04/01/18 06:48 MPV 10.4 fL (8.0-11.0) 04/01/18 06:48 Immature Gran % 0.1 03/31/18 11:30 Neutrophils % 84.8 03/31/18 11:30 Lymphocytes % 6.6 03/31/18 11:30 Monocytes % 8.3 03/31/18 11:30 Eosinophils % 0.1 03/31/18 11:30 Basophils % 0.1 03/31/18 11:30 Absolute Neutrophils 8.20 k/cumm (1.2-6.7) H 03/31/18 11:30 Absolute Lymphocytes 0.64 k/cumm (1.2-3.4) L 03/31/18 11:30 Absolute Monocytes 0.80 k/cumm (0.11-0.7) H 03/31/18 11:30 Absolute Eosinophils 0.01 k/cumm (0.0-0.7) 03/31/18 11:30 Absolute Basophils 0.01 k/cumm (0.0-0.2) 03/31/18 11:30 Sodium 137 mmol/L (136-145) 04/01/18 06:48 Potassium 2.7 mmol/L (3.5-5.1) L* 04/01/18 06:48 Chloride 100 mmol/L (98-107) 04/01/18 06:48 Carbon Dioxide 29.1 mmol/L (21.0-32.0) 04/01/18 06:48 Anion Gap 7.9 mmol/L (3-11) 04/01/18 06:48 BUN 17 mg/dL (7-18) D 04/01/18 06:48 Creatinine 0.79 mg/dL (0.55-1.02) 04/01/18 06:48 Estimated GFR/1.73 m2 >= 60.00 (mL/min/1.73m2) 04/01/18 06:48 Glucose 141 mg/dL (70-100) H 04/01/18 06:48 Calcium 8.9 mg/dL (8.5-10.1) 04/01/18 06:48 Magnesium 1.3 mg/dL (1.8-2.4) L 04/01/18 06:48 Total Bilirubin 1.3 mg/dL (0.2-1.0) H 03/31/18 11:30 AST 47 U/L (15-37) H 03/31/18 11:30 ALT 22 U/L (12-78) 03/31/18 11:30 Alkaline Phosphatase 96 U/L (46-116) 03/31/18 11:30 Troponin I < 0.02 ng/mL (0.00-0.06) 03/31/18 11:30 Total Protein 7.2 g/dL (6.4-8.2) 03/31/18 11:30 Albumin 3.3 g/dL (3.4-5.0) L 03/31/18 11:30 TSH 2.37 uIU/mL (0.358-3.74) 04/01/18 06:48
--- NOTE | 2018-04-01 15:52 | W.PALPGNOTE ---
Date of service: 04/01/18 Time of Service: 10:52 Assessment and Plan (1) Goals of care, counseling/discussion: Current visit: Yes Status: Acute Magalis is more clear she does not want to pursue further cancer treatment. She will make up her mind completely by next week. We will let the cancer center know if she decides to cancel her appointment. We did not order tumor markers at this time no need to if she is not going to pursue further treatment. It is unclear whether there even is treatment she could tolerate given her weakened state. Magalis is clearly a DNR/DNI. She wants the rest of her life to be as comfortable as possible. She wishes that she could quickly as her did 20 years ago. She hates having no one she can count to take care of her and her last days to weeks. She will go to a alf facility if necessary. I explained I think it is. For her insomnia and sleeplessness, Mariel Neumann will prescribe melatonin and/or trazodone. blade sharpener and acappella singing group to visit (2) Malnutrition: Current visit: Yes Status: Acute trying to eat does not want feeding tube does not want TPN needs IVF at this time to help (3) Generalized weakness: Current visit: Yes Status: Acute due to her cancer and severe malnutrition due to fact that she was bedbound for a week (4) Colon cancer metastasized to lung: Current visit: No Status: Acute clinically, her cancer is progressing does not want further treatment too weak to tolerate it Subjective Patient reports: feels better, tolerating liquids well, diarrhea, nausea and other (exhausted, did not sleep well) Interval history since last seen: Natalie reports that she did not sleep at all well last night. Her mind woke her up she reports. She tells me I could sleep for a week. She is open to having a sleep aid prescribed. She reported she voted today. That was very important to her. She says I am scared to go home. She realizes that she needs more help then will allow her to live alone. I talked to care management and they told me some of her friends have come in and spoken to them. Her friends cannot care for Magalis. They say her home is uninhabitable. She would be very embarrassed to realize this. Her family day care worker is looking into the [facility] [place] [facility], and [facility] and rehab. Ideally we would get hospice involved to help Magalis. However, it is unclear whether she could afford the room and board fee Medicare would require her to pay if she were in a skilled nursing on hospice. Care management will look into whether she can afford to go to [facility] or another our community hospital shelter. She has agreed to accept continued IV fluid replacement for her low magnesium and low potassium. She did accept some IV morphine for pain last night. She feels too weak and tired today to participate with physical therapy. It is unclear whether she will be willing to tomorrow. It appears as if she will be an inpatient at [facility] through the weekend. I will follow-up with her next Wednesday. Exam Narrative Exam Narrative: Magalis was lying in bed. She told me she was exhausted. She looks tired and pale. She was more tearful today than yesterday. Vital signs reviewed. Note that her BMI is only 15.6. Eyes sunken and escalera today HEENT: Mucous membranes are still somewhat dry no oral lesions Neck: No lymphadenopathy Respiratory: Lungs are clear. No increased work of breathing. Cardiovascular heart rate borderline tachycardic but regular. Abdomen: Cachectic. Well-healed midline scar between the umbilicus and pubic bone. Hyperactive bowel sounds Skin: No longer covered with dried feces. Very dry still. Some ecchymoses. Neuro-. Alert and oriented x3. Psychiatric: She was tearful today. Exhausted. Worried. Reportedly perseverating about what will become of her next Objective Objective Clinical Data: Abnormal lab results 04/01/18 04/01/18 Range/Units 06:48 06:48 WBC 11.00 H (4.4-10.8) k/cumm RBC 3.56 L (4.00-5.20) m/cumm Hct 34.9 L (36.0-46.0) % MCV 98.0 H (80-95) fL MCH 34.6 H (27.0-33.0) pg RDW 15.9 H (11.7-14.6) % Potassium 2.7 L* (3.5-5.1) mmol/L Glucose 141 H (70-100) mg/dL Magnesium 1.3 L (1.8-2.4) mg/dL Vital Signs Temperature 99.7 F H 04/01/18 11:30 Temperature Source Tympanic 04/01/18 11:30 Pulse 82 04/01/18 11:30 Pulse Rhythm Regular 04/01/18 15:36 Pulse 86 03/31/18 18:50 Respiratory Rate 18 04/01/18 11:30 Respiratory Effort Non-Labored 04/01/18 15:36 Respiratory Depth Normal 04/01/18 15:36 Respiratory Pattern Normal 04/01/18 15:36 Blood Pressure 100/61 04/01/18 11:30 Blood Pressure Mean 94 03/31/18 18:01 Blood Pressure Position Supine 03/31/18 17:00 Pulse Oximetry 97 04/01/18 11:30 Oxygen Delivery Method Room Air 04/01/18 11:30 Oxygen Flow Rate 0 04/01/18 11:30 Pain Level 6 04/01/18 07:35 Intake & Output 03/31/18 04/01/18 04/01/18 23:59 11:59 23:59 Intake Total 1460 / 1460 200 / 200 Balance 1460 / 1460 200 / 200 Weight 88 lb 13.541 oz 90 lb 9.76 oz Intake: IV 1100 / 1100 200 / 200 Sodium Chloride 0.45% 1,000 ml 1000 / 1000 @ 100 mls/hr IV INFUSION [facility] Rx #:[id number] Oral 360 / 360 Other: Comment incontinent large amount of urine Stool Size Large Stool Characteristics Liquid Brown Voiding Methods Diaper Incontinent Laboratory Results WBC 11.00 k/cumm (4.4-10.8) H 04/01/18 06:48 RBC 3.56 m/cumm (4.00-5.20) L 04/01/18 06:48 Hgb 12.3 g/dL (12.0-15.5) 04/01/18 06:48 Hct 34.9 % (36.0-46.0) L 04/01/18 06:48 MCV 98.0 fL (80-95) H 04/01/18 06:48 MCH 34.6 pg (27.0-33.0) H 04/01/18 06:48 MCHC 35.2 g/dL (32.0-36.0) 04/01/18 06:48 RDW 15.9 % (11.7-14.6) H 04/01/18 06:48 Plt Count 262 x1000/uL (130-400) 04/01/18 06:48 MPV 10.4 fL (8.0-11.0) 04/01/18 06:48 Immature Gran % 0.1 03/31/18 11:30 Neutrophils % 84.8 03/31/18 11:30 Lymphocytes % 6.6 03/31/18 11:30 Monocytes % 8.3 03/31/18 11:30 Eosinophils % 0.1 03/31/18 11:30 Basophils % 0.1 03/31/18 11:30 Absolute Neutrophils 8.20 k/cumm (1.2-6.7) H 03/31/18 11:30 Absolute Lymphocytes 0.64 k/cumm (1.2-3.4) L 03/31/18 11:30 Absolute Monocytes 0.80 k/cumm (0.11-0.7) H 03/31/18 11:30 Absolute Eosinophils 0.01 k/cumm (0.0-0.7) 03/31/18 11:30 Absolute Basophils 0.01 k/cumm (0.0-0.2) 03/31/18 11:30 Sodium 137 mmol/L (136-145) 04/01/18 06:48 Potassium 2.7 mmol/L (3.5-5.1) L* 04/01/18 06:48 Chloride 100 mmol/L (98-107) 04/01/18 06:48 Carbon Dioxide 29.1 mmol/L (21.0-32.0) 04/01/18 06:48 Anion Gap 7.9 mmol/L (3-11) 04/01/18 06:48 BUN 17 mg/dL (7-18) D 04/01/18 06:48 Creatinine 0.79 mg/dL (0.55-1.02) 04/01/18 06:48 Estimated GFR/1.73 m2 >= 60.00 (mL/min/1.73m2) 04/01/18 06:48 Glucose 141 mg/dL (70-100) H 04/01/18 06:48 Calcium 8.9 mg/dL (8.5-10.1) 04/01/18 06:48 Magnesium 1.3 mg/dL (1.8-2.4) L 04/01/18 06:48 Total Bilirubin 1.3 mg/dL (0.2-1.0) H 03/31/18 11:30 AST 47 U/L (15-37) H 03/31/18 11:30 ALT 22 U/L (12-78) 03/31/18 11:30 Alkaline Phosphatase 96 U/L (46-116) 03/31/18 11:30 Troponin I < 0.02 ng/mL (0.00-0.06) 03/31/18 11:30 Total Protein 7.2 g/dL (6.4-8.2) 03/31/18 11:30 Albumin 3.3 g/dL (3.4-5.0) L 03/31/18 11:30 TSH 2.37 uIU/mL (0.358-3.74) 04/01/18 06:48
--- NOTE | 2018-04-01 16:06 | PCPN_ITS ---
Date of service: 04/01/18 Time of Service: 10:52 Assessment and Plan (1) Goals of care, counseling/discussion: Current visit: Yes Status: Acute Magalis is more clear she does not want to pursue further cancer treatment. She will make up her mind completely by next week. We will let the cancer center know if she decides to cancel her appointment. We did not order tumor markers at this time no need to if she is not going to pursue further treatment. It is unclear whether there even is treatment she could tolerate given her weakened state. Magalis is clearly a DNR/DNI. She wants the rest of her life to be as comfortable as possible. She wishes that she could quickly as her did 20 years ago. She hates having no one she can count to take care of her and her last days to weeks. She will go to a group home facility if necessary. I explained I think it is. For her insomnia and sleeplessness, Mariel Neumann will prescribe melatonin and/ or trazodone. flame hardener and acappella singing group to visit (2) Malnutrition: Current visit: Yes Status: Acute trying to eat does not want feeding tube does not want TPN needs IVF at this time to help (3) Generalized weakness: Current visit: Yes Status: Acute due to her cancer and severe malnutrition due to fact that she was bedbound for a week (4) Colon cancer metastasized to lung: Current visit: No Status: Acute clinically, her cancer is progressing does not want further treatment too weak to tolerate it Subjective Patient reports: feels better, tolerating liquids well, diarrhea, nausea and other (exhausted, did not sleep well) Interval history since last seen: Natalie reports that she did not sleep at all well last night. Her mind woke her up she reports. She tells me I could sleep for a week. She is open to having a sleep aid prescribed. She reported she voted today. That was very important to her. She says I am scared to go home. She realizes that she needs more help then will allow her to live alone. I talked to care management and they told me some of her friends have come in and spoken to them. Her friends cannot care for Magalis. They say her home is uninhabitable. She would be very embarrassed to realize this. Her child day care provider is looking into the [facility], [place] [facility], and [facility] and rehab. Ideally we would get hospice involved to help Magalis. However, it is unclear whether she could afford the room and board fee Medicare would require her to pay if she were in a retirement on hospice. Care management will look into whether she can afford to [facility] She has agreed to accept continued IV fluid replacement for her low magnesium and low potassium. She did accept some IV morphine for pain last night. She feels too weak and tired today to participate with physical therapy. It is unclear whether she will be willing to tomorrow. It appears as if she will be an inpatient at [facility] through the weekend. I will follow-up with her next Wednesday. Exam Narrative Exam Narrative: Magalis was lying in bed. She told me she was exhausted. She looks tired and pale. She was more tearful today than yesterday. Vital signs reviewed. Note that her BMI is only 15.6. Eyes sunken and escalera today HEENT: Mucous membranes are still somewhat dry no oral lesions Neck: No lymphadenopathy Respiratory: Lungs are clear. No increased work of breathing. Cardiovascular heart rate borderline tachycardic but regular. Abdomen: Cachectic. Well-healed midline scar between the umbilicus and pubic bone. Hyperactive bowel sounds Skin: No longer covered with dried feces. Very dry still. Some ecchymoses. Neuro-. Alert and oriented x3. Psychiatric: She was tearful today. Exhausted. Worried. Reportedly perseverating about what will become of her next Objective Objective Clinical Data: Abnormal lab results 04/01/18 04/01/18 Range/Units 06:48 06:48 WBC 11.00 H (4.4-10.8) k/cumm RBC 3.56 L (4.00-5.20) m/cumm Hct 34.9 L (36.0-46.0) % MCV 98.0 H (80-95) fL MCH 34.6 H (27.0-33.0) pg RDW 15.9 H (11.7-14.6) % Potassium 2.7 L* (3.5-5.1) mmol/L Glucose 141 H (70-100) mg/dL Magnesium 1.3 L (1.8-2.4) mg/dL Vital Signs Temperature 99.7 F H 04/01/18 11:30 Temperature Source Tympanic 04/01/18 11:30 Pulse 82 04/01/18 11:30 Pulse Rhythm Regular 04/01/18 15:36 Pulse 86 03/31/18 18:50 Respiratory Rate 18 04/01/18 11:30 Respiratory Effort Non-Labored 04/01/18 15:36 Respiratory Depth Normal 04/01/18 15:36 Respiratory Pattern Normal 04/01/18 15:36 Blood Pressure 100/61 04/01/18 11:30 Blood Pressure Mean 94 03/31/18 18:01 Blood Pressure Position Supine 03/31/18 17:00 Pulse Oximetry 97 04/01/18 11:30 Oxygen Delivery Method Room Air 04/01/18 11:30 Oxygen Flow Rate 0 04/01/18 11:30 Pain Level 6 04/01/18 07:35 Intake & Output 03/31/18 04/01/18 04/01/18 23:59 11:59 23:59 Intake Total 1460 / 1460 200 / 200 Balance 1460 / 1460 200 / 200 Weight 88 lb 13.541 oz 90 lb 9.76 oz Intake: IV 1100 / 1100 200 / 200 Sodium Chloride 0.45% 1,000 ml 1000 / 1000 @ 100 mls/hr IV INFUSION [facility] Rx #:[id number] Oral 360 / 360 Other: Comment incontinent large amount of urine Stool Size Large Stool Characteristics Liquid Brown Voiding Methods Diaper Incontinent Laboratory Results WBC 11.00 k/cumm (4.4-10.8) H 04/01/18 06:48 RBC 3.56 m/cumm (4.00-5.20) L 04/01/18 06:48 Hgb 12.3 g/dL (12.0-15.5) 04/01/18 06:48 Hct 34.9 % (36.0-46.0) L 04/01/18 06:48 MCV 98.0 fL (80-95) H 04/01/18 06:48 MCH 34.6 pg (27.0-33.0) H 04/01/18 06:48 MCHC 35.2 g/dL (32.0-36.0) 04/01/18 06:48 RDW 15.9 % (11.7-14.6) H 04/01/18 06:48 Plt Count 262 x1000/uL (130-400) 04/01/18 06:48 MPV 10.4 fL (8.0-11.0) 04/01/18 06:48 Immature Gran % 0.1 03/31/18 11:30 Neutrophils % 84.8 03/31/18 11:30 Lymphocytes % 6.6 03/31/18 11:30 Monocytes % 8.3 03/31/18 11:30 Eosinophils % 0.1 03/31/18 11:30 Basophils % 0.1 03/31/18 11:30 Absolute Neutrophils 8.20 k/cumm (1.2-6.7) H 03/31/18 11:30 Absolute Lymphocytes 0.64 k/cumm (1.2-3.4) L 03/31/18 11:30 Absolute Monocytes 0.80 k/cumm (0.11-0.7) H 03/31/18 11:30 Absolute Eosinophils 0.01 k/cumm (0.0-0.7) 03/31/18 11:30 Absolute Basophils 0.01 k/cumm (0.0-0.2) 03/31/18 11:30 Sodium 137 mmol/L (136-145) 04/01/18 06:48 Potassium 2.7 mmol/L (3.5-5.1) L* 04/01/18 06:48 Chloride 100 mmol/L (98-107) 04/01/18 06:48 Carbon Dioxide 29.1 mmol/L (21.0-32.0) 04/01/18 06:48 Anion Gap 7.9 mmol/L (3-11) 04/01/18 06:48 BUN 17 mg/dL (7-18) D 04/01/18 06:48 Creatinine 0.79 mg/dL (0.55-1.02) 04/01/18 06:48 Estimated GFR/1.73 m2 >= 60.00 (mL/min/1.73m2) 04/01/18 06:48 Glucose 141 mg/dL (70-100) H 04/01/18 06:48 Calcium 8.9 mg/dL (8.5-10.1) 04/01/18 06:48 Magnesium 1.3 mg/dL (1.8-2.4) L 04/01/18 06:48 Total Bilirubin 1.3 mg/dL (0.2-1.0) H 03/31/18 11:30 AST 47 U/L (15-37) H 03/31/18 11:30 ALT 22 U/L (12-78) 03/31/18 11:30 Alkaline Phosphatase 96 U/L (46-116) 03/31/18 11:30 Troponin I < 0.02 ng/mL (0.00-0.06) 03/31/18 11:30 Total Protein 7.2 g/dL (6.4-8.2) 03/31/18 11:30 Albumin 3.3 g/dL (3.4-5.0) L 03/31/18 11:30 TSH 2.37 uIU/mL (0.358-3.74) 04/01/18 06:48
[2018-04-01] MEDS: Normal Saline 1,000 ML 75 ML IV (17:53)
[2018-04-01] MEDS: Enoxaparin 40 MG/0.4 ML SYR SC (18:55)
[2018-04-01] MEDS: Magnesium Oxide 400 MG TAB PO (19:46)
[2018-04-01] MEDS: Melatonin 3 MG TAB PO (22:04)
[2018-04-02] MEDS: Normal Saline 1,000 ML 75 ML IV ×2 (06:59→20:31)
[2018-04-02 07:10] VITALS: BP 118/74; PULSE 79; RESP 16; TEMP 37.2; O2SAT 97
[2018-04-02 07:24] LABS: HCT 32.8 % (36.0-46.0); HGB 11.1 g/dL (12.0-15.5); Mean Corp. HGB Concentration 33.8 g/dL (32.0-36.0); Mean Corpuscular Hemoglobin 33.4 pg (27.0-33.0); Mean Corpuscular Volume 98.8 fL (80-95); Mean Platelet Volume 10.7 fL (8.0-11.0); Platelet Count 201 x1000/uL (130-400); RBC 3.32 m/cumm (4.00-5.20); RBC Distribution Width 15.7 % (11.7-14.6)
[2018-04-02 07:33] LABS: Anion Gap 5.4 mmol/L (3-11); BUN 13 mg/dL (7-18); CO2 27.6 mmol/L (21.0-32.0); CREATININE 0.57 mg/dL (0.55-1.02); Calcium 7.8 mg/dL (8.5-10.1); Chloride 104 mmol/L (98-107); Glucose 125 mg/dL (70-100); Magnesium 1.9 mg/dL (1.8-2.4); Potassium 4.6 mmol/L (3.5-5.1); Sodium 137 mmol/L (136-145)
[2018-04-02] MEDS: Magnesium Oxide 400 MG TAB PO (09:03)
[2018-04-02] MEDS: Potassium Chloride 20 MEQ TABCR 40 MEQ PO (09:04)
--- NOTE | 2018-04-02 13:41 | W.PM.PROGNOT ---
Date of Service Date of service: 04/02/18 Time of Service: 13:41 Assessment and Plan (1) Colon cancer metastasized to lung: Current visit: No Status: Acute With generalized weakness and failure to thrive. She has been on maintenance chemo with Xeloda. Her visit note from her last oncology appointment notes worsening tumor marker. She is clearly declining. She has lost a significant amount of weight in recent months. She is underweight by BMI and appears cachectic. She is agreeable to receive IV fluids for now. If she became unresponsive she would like to just be kept comfortable and discontinue IV fluids. Hold off on UA as she continues to decline straight catheter. Analgesics and antiemetics ordered for PRN use. Palliative care following. She desires to be TROPHY ASSEMBLER but is accepting IV fluids and antibiotics at this point. Her electrolytes have returned to normal with supplementation. Continue supportive measures. (2) Conjunctivitis: Current visit: Yes Status: Acute Her conjunctivae are injected bilaterally with purulent green drainage from both eyes. Will start antibiotic drops to treat infection and increase her comfort. (3) Hypokalemia: Current visit: Yes Status: Acute Resolved with supplementation. (4) Hypomagnesemia: Current visit: Yes Status: Acute Resolved with supplementation. Diarrhea improving. (5) Discharge planning issues: Current visit: Yes Status: Acute She is a DNR/DNI. Palliative care is following her. She desires comfort measures only, however, she is accepting IV fluids and antibiotics. She may be a candidate for hospice if she is interested. She knows it is not safe for her to return home. Her friends have reported that her home is unkempt. She will need placement upon discharge. (6) DVT prophylaxis: Current visit: Yes Status: Acute Subcutaneous Lovenox. Subjective Interval history since last seen: Magalis is a very pleasant 72 year old female with a history of Colon cancer with lung metastasis, with history of colon resection, who has been on oral maintenance chemotherapy (has not taken in about 2 weeks), who presented to the ED 03/31/18 with generalized weakness. She had been in bed for 5-6 days, unable to get out of bed. She tried to get up out of bed 3 times, fell every time and had to pull herself back into bed. She was covered in feces and urine as she was unable to get to the bathroom. She had not had anything to eat or drink in several days. Her friend went to her house to check on her and the door was locked so she contacted authorities. At that time she was transported to the hospital. In the ED, she was noted to have electrolyte abnormalities. She had diarrhea, she was unable to ambulate. She continues to report that she is tired of fighting her cancer, she has been fighting it for years. She continues to decline straight catheterization for UA to assess for UTI. She does not want to restart her oral chemo at this point. She continues to verbalize that she is aware that it is not safe for her to return home. She reports aches and pains, she has IV morphine PRN for pain. She denies shortness of breath, coughing or wheezing. She reports eye discharge. Her diarrhea is improving, she thinks she had 2 episodes yesterday as opposed to continuous diarrhea when she presented to the hospital. No other complaints. Exam Narrative Exam Narrative: General: Magalis is a 72 year old female who appears chronically ill and frail. She is thin and cachectic. She is sleepy but opens eyes to verbal stimuli. She is alert and oriented, pleasant and cooperative. She answers questions appropriately. She is tearful. HEENT: her mucous membranes are moist, eyes appear mildly sunken, pupils are equal and round, conjunctivae are mildly injected, sclera are nonicteric, she has thick green discharge from bilateral eyes, her right eye lids are crusted together. Respiratory: Respirations are even and unlabored, lung sounds are clear to auscultation throughout, no rales, rhonchi or wheeze. Cardiac: Heart has a regular rate and rhythm, normal S1 and S2. No murmur, clicks, gallops or rubs. GI: Abdomen thin, scaphoid, hypoactive bowel sounds throughout. Abdomen soft, nontender on palpation with no masses appreciated. Skin: Skin is less dry. The palms of her hands have less erythema, they have healing cracks bilaterally. The soles of her feet are dry and scaling. Toenails are hypertrophic. Extremities: Without clubbing, cyanosis or edema. Peripheral pulses are intact bilaterally. Objective Objective Clinical Data: Abnormal lab results 04/02/18 04/02/18 Range/Units 07:05 07:05 RBC 3.32 L (4.00-5.20) m/cumm Hgb 11.1 L (12.0-15.5) g/dL Hct 32.8 L (36.0-46.0) % MCV 98.8 H (80-95) fL MCH 33.4 H (27.0-33.0) pg RDW 15.7 H (11.7-14.6) % Glucose 125 H (70-100) mg/dL Calcium 7.8 L (8.5-10.1) mg/dL Vital Signs Temperature 37.2 C 04/02/18 07:10 Temperature Source Tympanic 04/02/18 07:10 Pulse 79 04/02/18 07:10 Pulse Rhythm Regular 04/02/18 08:50 Pulse 86 03/31/18 18:50 Respiratory Rate 16 04/02/18 07:10 Respiratory Effort 04/02/18 08:50 Respiratory Depth Normal 04/02/18 08:50 Respiratory Pattern Normal 04/02/18 08:50 Blood Pressure 118/74 04/02/18 07:10 Blood Pressure Mean 94 03/31/18 18:01 Blood Pressure Position Supine 03/31/18 17:00 Pulse Oximetry 97 04/02/18 07:10 Oxygen Delivery Method Room Air 04/02/18 07:10 Oxygen Flow Rate 0 04/02/18 07:10 Pain Level 6 04/02/18 07:10 Intake & Output 04/01/18 04/02/18 04/02/18 23:59 11:59 23:59 Intake Total 1440 / 1440 1102.5 / 1102.5 Balance 1440 / 1440 1102.5 / 1102.5 Weight 45.2 kg Intake: IV 1200 / 1200 982.5 / 982.5 Oral 240 / 240 120 / 120 Other: Urine Color Yellow Yellow Yellow Urine Appearance Clear Clear Urine Odor Strong Normal Comment passed urine in brief Stool Size Smear Stool Characteristics Soft Brown Voiding Methods Diaper Diaper Incontinent Incontinent Laboratory Results WBC 8.60 k/cumm (4.4-10.8) 04/02/18 07:05 RBC 3.32 m/cumm (4.00-5.20) L 04/02/18 07:05 Hgb 11.1 g/dL (12.0-15.5) L 04/02/18 07:05 Hct 32.8 % (36.0-46.0) L 04/02/18 07:05 MCV 98.8 fL (80-95) H 04/02/18 07:05 MCH 33.4 pg (27.0-33.0) H 04/02/18 07:05 MCHC 33.8 g/dL (32.0-36.0) 04/02/18 07:05 RDW 15.7 % (11.7-14.6) H 04/02/18 07:05 Plt Count 201 x1000/uL (130-400) 04/02/18 07:05 MPV 10.7 fL (8.0-11.0) 04/02/18 07:05 Immature Gran % 0.1 03/31/18 11:30 Neutrophils % 84.8 03/31/18 11:30 Lymphocytes % 6.6 03/31/18 11:30 Monocytes % 8.3 03/31/18 11:30 Eosinophils % 0.1 03/31/18 11:30 Basophils % 0.1 03/31/18 11:30 Absolute Neutrophils 8.20 k/cumm (1.2-6.7) H 03/31/18 11:30 Absolute Lymphocytes 0.64 k/cumm (1.2-3.4) L 03/31/18 11:30 Absolute Monocytes 0.80 k/cumm (0.11-0.7) H 03/31/18 11:30 Absolute Eosinophils 0.01 k/cumm (0.0-0.7) 03/31/18 11:30 Absolute Basophils 0.01 k/cumm (0.0-0.2) 03/31/18 11:30 Sodium 137 mmol/L (136-145) 04/02/18 07:05 Potassium 4.6 mmol/L (3.5-5.1) D 04/02/18 07:05 Chloride 104 mmol/L (98-107) 04/02/18 07:05 Carbon Dioxide 27.6 mmol/L (21.0-32.0) 04/02/18 07:05 Anion Gap 5.4 mmol/L (3-11) 04/02/18 07:05 BUN 13 mg/dL (7-18) 04/02/18 07:05 Creatinine 0.57 mg/dL (0.55-1.02) 04/02/18 07:05 Estimated GFR/1.73 m2 >= 60.00 (mL/min/1.73m2) 04/02/18 07:05 Glucose 125 mg/dL (70-100) H 04/02/18 07:05 Calcium 7.8 mg/dL (8.5-10.1) L 04/02/18 07:05 Magnesium 1.9 mg/dL (1.8-2.4) 04/02/18 07:05 Total Bilirubin 1.3 mg/dL (0.2-1.0) H 03/31/18 11:30 AST 47 U/L (15-37) H 03/31/18 11:30 ALT 22 U/L (12-78) 03/31/18 11:30 Alkaline Phosphatase 96 U/L (46-116) 03/31/18 11:30 Troponin I < 0.02 ng/mL (0.00-0.06) 03/31/18 11:30 Total Protein 7.2 g/dL (6.4-8.2) 03/31/18 11:30 Albumin 3.3 g/dL (3.4-5.0) L 03/31/18 11:30 TSH 2.37 uIU/mL (0.358-3.74) 04/01/18 06:48
--- NOTE | 2018-04-02 15:36 | PDOC.CMPRO ---
- If Service Date Differs Date of service: 04/02/18 Time of Service: 15:36 Care Management Progress Note S/O: Magalis was lying in bed, nodding off and on, when CM visited this morning. She reported that she was very tired and asked CM to return later in the day. CM attempted two times to visit this afternoon and Magalis was asleep. Per ROD Harrington, Magalis is receptive to SNF placement and would like to get stronger so that she can return home on hospice. Referrals have been sent to the [facility], and [facility] are unable to offer Magalis a bed. Referral to [facility] is pending. CM will continue to follow and additional SNF referrals will likely be forthcoming. A: 72 year old female admitted with failure to thrive, hypokalemia, weakness. P: Magalis will discharge when medically ready per MD. Anticipate patient will discharge to a SNF for short term rehab and follow up with her PCP. Magalis will transport via private vehicle with a friend. CM will continue to offer support to patient and care team regarding discharge planning and disposition.
--- NOTE | 2018-04-02 15:41 | CMPROGNOTE_ITS ---
- If Service Date Differs Date of service: 04/02/18 Time of Service: 15:36 Care Management Progress Note S/O: Magalis was lying in bed, nodding off and on, when CM visited this morning. She reported that she was very tired and asked CM to return later in the day. CM attempted two times to visit this afternoon and Magalis was asleep. Per ROD Harrington, Magalis is receptive to SNF placement and would like to get stronger so that she can return home on hospice. Referrals have been sent to the [facility], and [facility] are unable to offer Magalis a bed. Referral to [facility] is pending. CM will continue to follow and additional SNF referrals will likely be forthcoming. A: 72 year old female admitted with failure to thrive, hypokalemia, weakness. P: Magalis will discharge when medically ready per MD. Anticipate patient will discharge to a SNF for short term rehab and follow up with her PCP. Magalis will transport via private vehicle with a friend. CM will continue to offer support to patient and care team regarding discharge planning and disposition.
[2018-04-02 15:47] VITALS: BP 119/62; PULSE 76; RESP 18; TEMP 37.9; O2SAT 96
[2018-04-02] MEDS: Polymyxin B/Trimethoprim Ophth Soln 10 ML BTL OU ×2 (16:13→20:31)
[2018-04-02] MEDS: Enoxaparin 40 MG/0.4 ML SYR SC (18:25)
[2018-04-02] MEDS: Melatonin 3 MG TAB PO (20:41)
[2018-04-02] MEDS: Normal Saline Flush 10 ML SYR (20:42)
[2018-04-03] VITALS: BP 125/69; PULSE 84; RESP 17; TEMP 37.1; O2SAT 99
[2018-04-03 07:30] VITALS: BP 115/75; PULSE 88; RESP 20; TEMP 35.8; O2SAT 98
[2018-04-03] MEDS: Normal Saline 1,000 ML 75 ML IV ×2 (09:40→22:24)
[2018-04-03] MEDS: Magnesium Oxide 400 MG TAB PO (09:41)
[2018-04-03] MEDS: Polymyxin B/Trimethoprim Ophth Soln 10 ML BTL OU ×4 (09:46→19:06)
[2018-04-03] MEDS: Normal Saline Flush 10 ML SYR (15:59)
[2018-04-03 16:17] VITALS: BP 116/70; PULSE 98; RESP 18; TEMP 37.1; O2SAT 96
--- NOTE | 2018-04-03 16:53 | PDOC.CMPRO ---
Care Management Progress Note S/O: Magalis was lying in bed, elevated when CM met with her. She had her prayer shawl spread over her legs and pointed out her gifts from her many visitors today; including plants, treats and a small lois bear she described as fitting for the name Ervin. She appeared to be in better spirits-though alluded to trauma experienced prior to admission where she remembered lying helpless for days, waiting for help. CM provided supportive listening; Magalis went on to discuss how she should have cared for herself better when she was younger and how the young unknowingly take their health for granted. Magalis reported not needed anything in addition to keep busy and noted again that she was just happy to feel safe and cared for. She provided positive feedback to [facility] staff and facility multiple times during the interaction. A: 72 year old female admitted with failure to thrive, hypokalemia, weakness. P: Magalis will discharge when medically ready per MD. Discharge disposition undetermined at this time. Per RN; Magalis requires additional pain management at this time. Magalis will transport via private vehicle with a friend. CM will continue to offer support to patient and care team regarding discharge planning and disposition.
--- NOTE | 2018-04-03 17:04 | CMPROGNOTE_ITS ---
Care Management Progress Note S/O: Magalis was lying in bed, elevated when CM met with her. She had her prayer shawl spread over her legs and pointed out her gifts from her many visitors today; including plants, treats and a small lois bear she described as fitting for the name Ervin. She appeared to be in better spirits-though alluded to trauma experienced prior to admission where she remembered lying helpless for days, waiting for help. CM provided supportive listening; Magalis went on to discuss how she should have cared for herself better when she was younger and how the young unknowingly take their health for granted. Magalis reported not needed anything in addition to keep busy and noted again that she was just happy to feel safe and cared for. She provided positive feedback to [facility] staff and facility multiple times during the interaction. A: 72 year old female admitted with failure to thrive, hypokalemia, weakness. P: Magalis will discharge when medically ready per MD. Discharge disposition undetermined at this time. Per RN; Magalis requires additional pain management at this time. Magalis will transport via private vehicle with a friend. CM will continue to offer support to patient and care team regarding discharge planning and disposition.
[2018-04-03] MEDS: Enoxaparin 40 MG/0.4 ML SYR SC (17:49)
[2018-04-03] MEDS: Normal Saline Flush 10 ML SYR IVP (17:55)
--- NOTE | 2018-04-03 18:50 | W.PM.PROGNOT ---
Date of Service Date of service: 04/03/18 Time of Service: 15:40 Assessment and Plan (1) Colon cancer metastasized to lung: Current visit: No Status: Acute With failure to thrive, chronic severe protein calorie malnutrition, and deconditioning. Failed outpatient xeloda. Patient is preparing to go to SNF on comfort care. For now, she would like to continue to receive IV fluids. Starting PO pain meds in addition to prn IV morphine (trialing norco). If she became unresponsive she would like to just be kept comfortable and discontinue IV fluids. Palliative care following. She desires to be EYEGLASS FRAME TRUER but is accepting IV fluids and antibiotics at this point. Continue supportive measures. (2) Conjunctivitis: Current visit: Yes Status: Acute Her conjunctivae are injected bilaterally with purulent green drainage from both eyes. Will start antibiotic drops to treat infection and increase her comfort. (3) Hypokalemia: Current visit: Yes Status: Acute Resolved with supplementation. (4) Hypomagnesemia: Current visit: Yes Status: Acute Resolved with supplementation. (5) Discharge planning issues: Current visit: Yes Status: Acute She is a DNR/DNI. Palliative careon board. She desires comfort measures only, however, she is accepting IV fluids and antibiotics. She is appropriate for hospice, which would have to be done a a SNF level of care. (6) DVT prophylaxis: Current visit: Yes Status: Acute Subcutaneous Lovenox. Subjective Interval history since last seen: The patient states her pain is about 6/10 - her goal is to get it to 3/10. She is willing to try oral pain meds tonight. She verbalized feeling bad for asking the nurses for pain meds when she needs them. She denies any dizziness, chest pain, shortness of breath, nausea, vomiting. Exam Narrative Exam Narrative: General: Frail elderly female, sitting up in bed, being visited by company Neurological: A&Ox3, no focal deficits Psychiatric: bright affect Skin: dry; I am unable to examine at the time of visit but am made aware of the ecchymoses on back HEENT: EOMI, Dry MM, crusty eye discharge noted Cardiovascular: RRR, no m/r/g Lungs: CTAB Gastrointestinal: soft, nontender, nondistended Extremities: covered by blankets Objective Objective Clinical Data: Vital Signs Temperature 37.1 C 04/03/18 16:17 Temperature Source Tympanic 04/03/18 16:17 Pulse 98 H 04/03/18 16:17 Pulse Rhythm Regular 04/03/18 16:00 Pulse 86 03/31/18 18:50 Respiratory Rate 18 04/03/18 16:17 Respiratory Effort Non-Labored 04/03/18 16:00 Respiratory Depth Normal 04/03/18 16:00 Respiratory Pattern Normal 04/03/18 16:00 Blood Pressure 116/70 04/03/18 16:17 Blood Pressure Mean 94 03/31/18 18:01 Blood Pressure Position Supine 03/31/18 17:00 Pulse Oximetry 96 04/03/18 16:17 Oxygen Delivery Method Room Air 04/03/18 16:17 Oxygen Flow Rate 0 04/03/18 16:17 Pain Level 5 04/03/18 17:54 Intake & Output 04/03/18 04/03/18 04/03/18 00:59 11:59 23:59 Intake Total 925 / 925 Balance 925 / 925 Weight Intake: IV 325 / 325 Oral 600 / 600 Other: Urine Color Yellow Urine Appearance Urine Odor Comment Stool Size Stool Characteristics Voiding Methods Diaper Incontinent Laboratory Results WBC 8.60 k/cumm (4.4-10.8) 04/02/18 07:05 RBC 3.32 m/cumm (4.00-5.20) L 04/02/18 07:05 Hgb 11.1 g/dL (12.0-15.5) L 04/02/18 07:05 Hct 32.8 % (36.0-46.0) L 04/02/18 07:05 MCV 98.8 fL (80-95) H 04/02/18 07:05 MCH 33.4 pg (27.0-33.0) H 04/02/18 07:05 MCHC 33.8 g/dL (32.0-36.0) 04/02/18 07:05 RDW 15.7 % (11.7-14.6) H 04/02/18 07:05 Plt Count 201 x1000/uL (130-400) 04/02/18 07:05 MPV 10.7 fL (8.0-11.0) 04/02/18 07:05 Immature Gran % 0.1 03/31/18 11:30 Neutrophils % 84.8 03/31/18 11:30 Lymphocytes % 6.6 03/31/18 11:30 Monocytes % 8.3 03/31/18 11:30 Eosinophils % 0.1 03/31/18 11:30 Basophils % 0.1 03/31/18 11:30 Absolute Neutrophils 8.20 k/cumm (1.2-6.7) H 03/31/18 11:30 Absolute Lymphocytes 0.64 k/cumm (1.2-3.4) L 03/31/18 11:30 Absolute Monocytes 0.80 k/cumm (0.11-0.7) H 03/31/18 11:30 Absolute Eosinophils 0.01 k/cumm (0.0-0.7) 03/31/18 11:30 Absolute Basophils 0.01 k/cumm (0.0-0.2) 03/31/18 11:30 Sodium 137 mmol/L (136-145) 04/02/18 07:05 Potassium 4.6 mmol/L (3.5-5.1) D 04/02/18 07:05 Chloride 104 mmol/L (98-107) 04/02/18 07:05 Carbon Dioxide 27.6 mmol/L (21.0-32.0) 04/02/18 07:05 Anion Gap 5.4 mmol/L (3-11) 04/02/18 07:05 BUN 13 mg/dL (7-18) 04/02/18 07:05 Creatinine 0.57 mg/dL (0.55-1.02) 04/02/18 07:05 Estimated GFR/1.73 m2 >= 60.00 (mL/min/1.73m2) 04/02/18 07:05 Glucose 125 mg/dL (70-100) H 04/02/18 07:05 Calcium 7.8 mg/dL (8.5-10.1) L 04/02/18 07:05 Magnesium 1.9 mg/dL (1.8-2.4) 04/02/18 07:05 Total Bilirubin 1.3 mg/dL (0.2-1.0) H 03/31/18 11:30 AST 47 U/L (15-37) H 03/31/18 11:30 ALT 22 U/L (12-78) 03/31/18 11:30 Alkaline Phosphatase 96 U/L (46-116) 03/31/18 11:30 Troponin I < 0.02 ng/mL (0.00-0.06) 03/31/18 11:30 Total Protein 7.2 g/dL (6.4-8.2) 03/31/18 11:30 Albumin 3.3 g/dL (3.4-5.0) L 03/31/18 11:30 TSH 2.37 uIU/mL (0.358-3.74) 04/01/18 06:48
[2018-04-03] MEDS: HYDROcodone 5/Acetaminophen 325 TAB PO (19:03)
[2018-04-03] MEDS: Melatonin 3 MG TAB PO (19:06)
[2018-04-03 23:39] VITALS: BP 114/67; PULSE 89; RESP 16; TEMP 37.5; O2SAT 96
[2018-04-04 07:56] VITALS: BP 117/71; PULSE 89; RESP 20; TEMP 37.9; O2SAT 97
[2018-04-04] MEDS: Magnesium Oxide 400 MG TAB PO (08:10)
[2018-04-04] MEDS: Polymyxin B/Trimethoprim Ophth Soln 10 ML BTL OU ×4 (08:13→20:33)
[2018-04-04] MEDS: HYDROcodone 5/Acetaminophen 325 TAB PO ×2 (10:54→20:34)
[2018-04-04] MEDS: Normal Saline 1,000 ML 75 ML IV (12:00)
--- NOTE | 2018-04-04 13:56 | PGE_ITS ---
Date of Service Date of service: 04/04/18 Time of Service: 14:00 Assessment and Plan (1) Colon cancer metastasized to lung: Current visit: No Status: Acute no further treatment at this point. palliative care consultation. continue pain management, would like to try scheduled norco twice daily with prn available for breakthrough pain. 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 (2) Conjunctivitis: Current visit: Yes Status: Acute improved with treatment, continue as directed. can have warm compresses as needed. (3) Discharge planning issues: Current visit: Yes Status: Acute home with appropriate services once pain is better managed. case management following. (4) DVT prophylaxis: Current visit: Yes Status: Acute enoxaparin daily (5) Dehydration: Current visit: Yes Status: Acute continue IV hydration until discharge. Subjective Patient reports: no new complaints and feels better Interval history since last seen: Magalis is a very pleasant 72 year old female with a history of Colon cancer with lung metastasis, with history of colon resection, who presented to the emergency department today with generalized weakness. She was found to be dehydrated and was admitted for IV hydration and pain management. She has been reluctant to start oral narcotics but last night agreed to try a norco tab. She is unable to say if it helped her pain but reports that she did get some sleep. today she reports she would like to try scheduling it twice daily with prn for breakthrough if needed. she has no new c /o Exam Const General: cooperative, no acute distress and frail appearing Nutritional Appearance: cachectic and malnourished Orientation: alert and oriented x3 Resp Effort & Inspection: normal respiratory effort (respirations even and unlabored) Auscultation: diminished lung sounds Cardio Rate: regular rate Rhythm: regular rhythm Skin General skin exam: dry skin and turgor decreased Lesions: no lesions Neuro General: alert and oriented x3 Cognition: normal cognition Speech: speech normal Extrem General: full ROM and no edema Psych Affect: blunted Attitude: cooperative Thought Process: normal Objective Objective Clinical Data: Vital Signs Temperature 37.9 C H 04/04/18 07:56 Temperature Source Tympanic 04/04/18 07:56 Pulse 89 04/04/18 07:56 Pulse Rhythm Regular 04/04/18 00:38 Pulse 86 03/31/18 18:50 Respiratory Rate 20 04/04/18 07:56 Respiratory Effort Non-Labored 04/04/18 00:38 Respiratory Depth Normal 04/04/18 00:38 Respiratory Pattern Normal 04/04/18 00:38 Blood Pressure 117/71 04/04/18 07:56 Blood Pressure Mean 94 03/31/18 18:01 Blood Pressure Position Supine 03/31/18 17:00 Pulse Oximetry 97 04/04/18 07:56 Oxygen Delivery Method Room Air 04/04/18 07:56 Oxygen Flow Rate 0 04/04/18 07:56 Pain Level 6 04/04/18 10:54 Intake & Output 04/03/18 04/04/18 04/04/18 23:59 11:59 23:59 Intake Total 2939 / 2939 1000 / 1000 Balance 2939 / 2939 1000 / 1000 Weight 44.4 kg Intake: IV 2088 / 2088 1000 / 1000 Oral 850 / 850 Other: Urine Color Yellow Urine Appearance Clear Clear Comment pt incontinent of extremly large amounts. Voiding Methods Diaper Diaper Incontinent Incontinent Laboratory Results WBC 8.60 k/cumm (4.4-10.8) 04/02/18 07:05 RBC 3.32 m/cumm (4.00-5.20) L 04/02/18 07:05 Hgb 11.1 g/dL (12.0-15.5) L 04/02/18 07:05 Hct 32.8 % (36.0-46.0) L 04/02/18 07:05 MCV 98.8 fL (80-95) H 04/02/18 07:05 MCH 33.4 pg (27.0-33.0) H 04/02/18 07:05 MCHC 33.8 g/dL (32.0-36.0) 04/02/18 07:05 RDW 15.7 % (11.7-14.6) H 04/02/18 07:05 Plt Count 201 x1000/uL (130-400) 04/02/18 07:05 MPV 10.7 fL (8.0-11.0) 04/02/18 07:05 Immature Gran % 0.1 03/31/18 11:30 Neutrophils % 84.8 03/31/18 11:30 Lymphocytes % 6.6 03/31/18 11:30 Monocytes % 8.3 03/31/18 11:30 Eosinophils % 0.1 03/31/18 11:30 Basophils % 0.1 03/31/18 11:30 Absolute Neutrophils 8.20 k/cumm (1.2-6.7) H 03/31/18 11:30 Absolute Lymphocytes 0.64 k/cumm (1.2-3.4) L 03/31/18 11:30 Absolute Monocytes 0.80 k/cumm (0.11-0.7) H 03/31/18 11:30 Absolute Eosinophils 0.01 k/cumm (0.0-0.7) 03/31/18 11:30 Absolute Basophils 0.01 k/cumm (0.0-0.2) 03/31/18 11:30 Sodium 137 mmol/L (136-145) 04/02/18 07:05 Potassium 4.6 mmol/L (3.5-5.1) D 04/02/18 07:05 Chloride 104 mmol/L (98-107) 04/02/18 07:05 Carbon Dioxide 27.6 mmol/L (21.0-32.0) 04/02/18 07:05 Anion Gap 5.4 mmol/L (3-11) 04/02/18 07:05 BUN 13 mg/dL (7-18) 04/02/18 07:05 Creatinine 0.57 mg/dL (0.55-1.02) 04/02/18 07:05 Estimated GFR/1.73 m2 >= 60.00 (mL/min/1.73m2) 04/02/18 07:05 Glucose 125 mg/dL (70-100) H 04/02/18 07:05 Calcium 7.8 mg/dL (8.5-10.1) L 04/02/18 07:05 Magnesium 1.9 mg/dL (1.8-2.4) 04/02/18 07:05 Total Bilirubin 1.3 mg/dL (0.2-1.0) H 03/31/18 11:30 AST 47 U/L (15-37) H 03/31/18 11:30 ALT 22 U/L (12-78) 03/31/18 11:30 Alkaline Phosphatase 96 U/L (46-116) 03/31/18 11:30 Troponin I < 0.02 ng/mL (0.00-0.06) 03/31/18 11:30 Total Protein 7.2 g/dL (6.4-8.2) 03/31/18 11:30 Albumin 3.3 g/dL (3.4-5.0) L 03/31/18 11:30 TSH 2.37 uIU/mL (0.358-3.74) 04/01/18 06:48
--- NOTE | 2018-04-04 15:29 | PDOC.CMPRO ---
- If Service Date Differs Date of service: 04/04/18 Time of Service: 15:29 Care Management Progress Note S/O: Magalis was lying in bed, elevated when CM met with her. Magalis discusses the stuffed animal (Ervin) that her friend Padmaja brought in for her. CM discussed DC plans with Magalis, and Magalis states that she does not want to go out of the area. CM discussed that [facility] looking [facility] her information at this time. CM faxed updates to [facility], whom will alert ROD tomorrow 04/05 in regards to availability. A: 72 year old female admitted with failure to thrive, hypokalemia, weakness. P: Magalis will discharge when medically ready per MD. Discharge disposition undetermined at this time. Per RN; Magalis requires additional pain management at this time. Magalis will transport via private vehicle with a friend. CM will continue to offer support to patient and care team regarding discharge planning and disposition.
[2018-04-04 15:53] VITALS: BP 105/62; PULSE 117; RESP 17; TEMP 37; O2SAT 94
[2018-04-04] MEDS: Enoxaparin 40 MG/0.4 ML SYR SC (17:21)
--- NOTE | 2018-04-04 19:11 | W.PODCONSULT ---
Date of service: 04/04/18 Time of Service: 19:11 History of Present Illness Chief Complaint: Severely overgrown toenails with onychomycosis Narrative: This is a 72-year-old white female seen at bedside who was admitted for severe dehydration and pain control related to colon cancer with metastasis to her lungs she is seen at bedside. She is resting comfortably. She is pleasant. She is glad to see that her toenails about to get tended to. Her comorbidities and problems includes colon cancer with metastasis to lung, conjunctivitis, urinary incontinence, fecal incontinence, malnutrition, hypomagnesemia, dehydration, hypokalemia. Vitals pulse 117 BP 105/62 temp 37.0. Current medications include albuterol sulfate and doxapram 40 mg subcu every 24 hydrocodone twice daily magnesium hydroxide as needed magnesium oxide 400 mg p.o. daily melatonin 3 mg p.o. nightly morphine sulfate 1 mg IVP every 2 hours as needed Podiatric exam: Peripheral pulses are minimally palpable at the ankles graded minus 2 out of 4 bilaterally. No peripheral edema are seen. The feet are warm to the touch. Calves are soft to palpation. Muscle groups of 5 out of 5 bilaterally although deconditioned. Skeletal exam is free of any gross deformities, no heat or swelling of the joints appreciated. Dermatologic exam: Skin is dry, and scaling. No drainage or secondary signs of infection toenails are heavy, yellow, thick, dystrophic, hypertrophic, elongated and in need of debridement. All toenails are affected. There is subungual debris with periungual tenderness but no drainage. Neurologically, toes are downgoing no focal deficits noted. Impressions onychomycosis with onychogryphosis Xerosis Plan: Mechanically and electrically debrided all toenails aggressively and atraumatically to patient tolerance 1 through 5 bilaterally. Recommend moisturizing cream application on a daily basis to improve skin quality and turgor. Be happy to provide ongoing care on a as needed basis as requested. PFSH Medical History Colon cancer metastasized to lung (Acute) Frequent falls (Acute) History of herniated intervertebral disc (Acute) Hunger, thirst, exposure, and neglect (Acute) Malignant cachexia (Acute) Poor self monitoring (Acute) Social History Smoking/Tobacco Use Status: Former Tobacco Use Surgical History History of colon resection (Chronic) H/O dilation and curettage (Acute) Results Last Vital Signs Temp 37.0 C 04/04/18 15:53 Pulse 117 H 04/04/18 15:53 Resp 17 04/04/18 15:53 BP 105/62 04/04/18 15:53 Pulse Ox 94 L 04/04/18 15:53 Labs : 04/02/18 07:05 04/02/18 07:05
[2018-04-04] MEDS: Melatonin 3 MG TAB PO (21:45)
[2018-04-04] MEDS: Normal Saline Flush 10 ML SYR IVP (21:46)
[2018-04-04 23:37] VITALS: BP 112/61; PULSE 66; RESP 18; TEMP 38; O2SAT 99
[2018-04-05] MEDS: Normal Saline 1,000 ML 75 ML IV ×2 (01:20→14:17)
[2018-04-05 07:01] LABS: HCT 31.5 % (36.0-46.0); HGB 10.5 g/dL (12.0-15.5); Mean Corp. HGB Concentration 33.3 g/dL (32.0-36.0); Mean Corpuscular Hemoglobin 33.5 pg (27.0-33.0); Mean Corpuscular Volume 100.6 fL (80-95); Mean Platelet Volume 11.2 fL (8.0-11.0); Platelet Count 235 x1000/uL (130-400); RBC 3.13 m/cumm (4.00-5.20); RBC Distribution Width 15.8 % (11.7-14.6); White Blood Cell Count 8.09 k/cumm (4.4-10.8)
[2018-04-05 07:25] VITALS: BP 98/57; PULSE 88; RESP 17; TEMP 37.2; O2SAT 96
[2018-04-05] MEDS: Magnesium Oxide 400 MG TAB PO (08:21)
[2018-04-05] MEDS: Polymyxin B/Trimethoprim Ophth Soln 10 ML BTL OU ×4 (08:21→19:36)
[2018-04-05] MEDS: HYDROcodone 5/Acetaminophen 325 TAB PO ×2 (08:21→19:36)
[2018-04-05 09:50] VITALS: O2SAT 96
[2018-04-05] MEDS: Normal Saline Flush 10 ML SYR IVP ×3 (09:50→17:07)
--- NOTE | 2018-04-05 14:49 | PDOC.CMPRO ---
- If Service Date Differs Date of service: 04/05/18 Time of Service: 14:49 Care Management Progress Note S/O: Magalis was lying in bed, when this automotive service writer visited this morning. Magalis's friend Ana was present. CM updated that [facility] is continuing to review referral at this time and is unsure as to a skilled need for SNF placement. CM discussed Magalis's assets, which she states she owns her own home, and has some money in the bank. Ana is assisting Magalis with paying her bills and her finances, and Magalis has requested CM create a letter for Ana to bring to the bank granting Ana access to her accounts. CM provided letter, for which Ana will bring to [employer]. Once financial information is obtained, CM will notify [facility], in regards to placement. A: 72 year old female admitted with failure to thrive, hypokalemia, weakness. P: Magalis will discharge when medically ready per MD. Discharge disposition undetermined at this time. Magalis will transport via private vehicle with a friend. CM will continue to offer support to patient and care team regarding discharge planning and disposition.
--- NOTE | 2018-04-05 14:58 | CMPROGNOTE_ITS ---
- If Service Date Differs Date of service: 04/05/18 Time of Service: 14:49 Care Management Progress Note S/O: Magalis was lying in bed, when this press writer visited this morning. Magalis's friend Ana was present. CM updated that [facility] is continuing to review referral at this time and is unsure as to a skilled need for SNF placement. CM discussed Magalis's assets, which she states she owns her own home, and has some money in the bank. Ana is assisting Magalis with paying her bills and her finances, and Magalis has requested CM create a letter for Ana to bring to the bank granting Ana access to her accounts. CM provided letter, for which Ana will bring to [employer] Once financial information is obtained, CM will notify [facility], in regards to placement. A: 72 year old female admitted with failure to thrive, hypokalemia, weakness. P: Magalis will discharge when medically ready per MD. Discharge disposition undetermined at this time. Magalis will transport via private vehicle with a friend. CM will continue to offer support to patient and care team regarding discharge planning and disposition.
[2018-04-05 16:08] VITALS: BP 103/61; PULSE 84; RESP 18; TEMP 36.8; O2SAT 98
--- NOTE | 2018-04-05 16:30 | W.PM.PROGNOT ---
Date of Service Date of service: 04/05/18 Time of Service: 16:30 Assessment and Plan (1) Colon cancer metastasized to lung: Current visit: No Status: Acute She has decided not to pursue further cancer treatment. She desires comfort measures, she is followed by Palliative care. Continue pain management, IV fluid hydration, comfort measures. (2) Conjunctivitis: Current visit: Yes Status: Acute Improving. Continue antibiotic eye drops. Offer warm compress for comfort. (3) Dehydration: Current visit: Yes Status: Acute Continue IV fluid hydration as above. (4) DVT prophylaxis: Current visit: Yes Status: Acute Subcutaneous Lovenox. (5) Discharge planning issues: Current visit: Yes Status: Acute She is a DNR/DNI. Care management is working on a safe discharge plan, this will likely include a retirement facility. This case was discussed with Dr. Mosley who is in agreement. Subjective Interval history since last seen: Magalis is a very pleasant 72 year old female with a history of Colon cancer with lung metastasis, with history of colon resection, who was admitted from the ED for severe dehydration, hypomagnesemia, hypokalemia with both fecal and urinary incontinence. She was also found to have conjunctivitis to bilateral eyes. She is currently receiving IV fluids and pain control. She started taking oral [place] in addition to PRN IV Morphine boluses. She has noticed improvement in her pain today. She is sleeping better now that her pain is becoming more controlled. She reported to Dr. Pink, Palliative, that she did not realize how much pain she was experiencing until her pain was taken away. She continue to have some urinary and fecal incontinence, however, she is only having small loose stools and they are less frequent. She denies shortness of breath, cough or wheeze, she has no chest pain/pressure, palpitations, she is taking in some oral nutrition, she is not nauseated or vomiting. She states she is done fighting, she wants to be kept comfortable. Exam Narrative Exam Narrative: General: pleasant 72 year old female, appears frail and cachectic. Alert and oriented. HEENT: Normocephalic, atraumatic. Pupils are equal and round. Sclera are non-icteric, conjunctiva are noninjected, no discharge or drainage from eyes. Mucous membranes are moist. Cardiovascular: Heart has a regular rate and rhythm. No murmur, click, gallop or rub. Respiratory: respirations are even and unlabored. Lung sounds diminished througout. Abdomen: thin, scaphoid, hypoactive bowel sounds, no masses appreciated. Extremities: no clubbing cyanosis or edema. Pedal pulses are faint bilaterally. Skin on bilateral feet dry and peeling. Toenails remian thick but have been trimmed. Objective Objective Clinical Data: Abnormal lab results 04/05/18 Range/Units 06:05 RBC 3.13 L (4.00-5.20) m/cumm Hgb 10.5 L (12.0-15.5) g/dL Hct 31.5 L (36.0-46.0) % MCV 100.6 H (80-95) fL MCH 33.5 H (27.0-33.0) pg RDW 15.8 H (11.7-14.6) % MPV 11.2 H (8.0-11.0) fL Vital Signs Temperature 36.8 C 04/05/18 16:08 Temperature Source Tympanic 04/05/18 16:08 Pulse 84 04/05/18 16:08 Pulse Rhythm Regular 04/05/18 07:44 Pulse 86 03/31/18 18:50 Respiratory Rate 18 04/05/18 16:08 Respiratory Effort Non-Labored 04/05/18 07:44 Respiratory Depth Normal 04/05/18 07:44 Respiratory Pattern Normal 04/05/18 07:44 Blood Pressure 103/61 04/05/18 16:08 Blood Pressure Mean 94 03/31/18 18:01 Blood Pressure Position Supine 03/31/18 17:00 Pulse Oximetry 98 04/05/18 16:08 Oxygen Delivery Method Room Air 04/05/18 16:08 Oxygen Flow Rate 0 04/05/18 16:08 Pain Level 4 04/05/18 15:23 Comment 04/04/18 23:37 Intake & Output 04/04/18 04/05/18 04/05/18 23:59 11:59 23:59 Intake Total 360 / 360 1320 / 1320 1231.25 / 1231.25 Balance 360 / 360 1320 / 1320 1231.25 / 1231.25 Weight 45 kg Intake: IV 1020 / 1020 991.25 / 991.25 Oral 360 / 360 300 / 300 240 / 240 Other: Urine Color Yellow Yellow Yellow Urine Appearance Clear Clear Urine Odor None None Comment grossly inc and also stool Incontinent x1 of a copious amount of urine in the briefs. Glory cream applied. Briefs were changed. Incontinent x1 of a copious amount of urine in the briefs. Glory cream applied. Briefs were changed. Stool Size Small Smear Stool Characteristics Soft Soft Brown Voiding Methods Diaper Diaper Diaper Incontinent Incontinent Incontinent Laboratory Results WBC 8.09 k/cumm (4.4-10.8) 04/05/18 06:05 RBC 3.13 m/cumm (4.00-5.20) L 04/05/18 06:05 Hgb 10.5 g/dL (12.0-15.5) L 04/05/18 06:05 Hct 31.5 % (36.0-46.0) L 04/05/18 06:05 MCV 100.6 fL (80-95) H 04/05/18 06:05 MCH 33.5 pg (27.0-33.0) H 04/05/18 06:05 MCHC 33.3 g/dL (32.0-36.0) 04/05/18 06:05 RDW 15.8 % (11.7-14.6) H 04/05/18 06:05 Plt Count 235 x1000/uL (130-400) 04/05/18 06:05 MPV 11.2 fL (8.0-11.0) H 04/05/18 06:05 Immature Gran % 0.1 03/31/18 11:30 Neutrophils % 84.8 03/31/18 11:30 Lymphocytes % 6.6 03/31/18 11:30 Monocytes % 8.3 03/31/18 11:30 Eosinophils % 0.1 03/31/18 11:30 Basophils % 0.1 03/31/18 11:30 Absolute Neutrophils 8.20 k/cumm (1.2-6.7) H 03/31/18 11:30 Absolute Lymphocytes 0.64 k/cumm (1.2-3.4) L 03/31/18 11:30 Absolute Monocytes 0.80 k/cumm (0.11-0.7) H 03/31/18 11:30 Absolute Eosinophils 0.01 k/cumm (0.0-0.7) 03/31/18 11:30 Absolute Basophils 0.01 k/cumm (0.0-0.2) 03/31/18 11:30 Sodium 137 mmol/L (136-145) 04/02/18 07:05 Potassium 4.6 mmol/L (3.5-5.1) D 04/02/18 07:05 Chloride 104 mmol/L (98-107) 04/02/18 07:05 Carbon Dioxide 27.6 mmol/L (21.0-32.0) 04/02/18 07:05 Anion Gap 5.4 mmol/L (3-11) 04/02/18 07:05 BUN 13 mg/dL (7-18) 04/02/18 07:05 Creatinine 0.57 mg/dL (0.55-1.02) 04/02/18 07:05 Estimated GFR/1.73 m2 >= 60.00 (mL/min/1.73m2) 04/02/18 07:05 Glucose 125 mg/dL (70-100) H 04/02/18 07:05 Calcium 7.8 mg/dL (8.5-10.1) L 04/02/18 07:05 Magnesium 1.9 mg/dL (1.8-2.4) 04/02/18 07:05 Total Bilirubin 1.3 mg/dL (0.2-1.0) H 03/31/18 11:30 AST 47 U/L (15-37) H 03/31/18 11:30 ALT 22 U/L (12-78) 03/31/18 11:30 Alkaline Phosphatase 96 U/L (46-116) 03/31/18 11:30 Troponin I < 0.02 ng/mL (0.00-0.06) 03/31/18 11:30 Total Protein 7.2 g/dL (6.4-8.2) 03/31/18 11:30 Albumin 3.3 g/dL (3.4-5.0) L 03/31/18 11:30 TSH 2.37 uIU/mL (0.358-3.74) 04/01/18 06:48
--- NOTE | 2018-04-05 17:04 | CHAPLAIN ---
Magalis was having lunch when I stopped in. She expressed her gratitude for her friends who have been supportive since she has been here, her chosen family. Magalis shared some person history, telling me about her youth in [place], her marriage and the of her at a young age, and her return to [place] where she had met her . I will continue to visit her.
[2018-04-05] MEDS: Enoxaparin 40 MG/0.4 ML SYR SC (17:07)
[2018-04-05] MEDS: Melatonin 3 MG TAB PO (21:26)
[2018-04-06 00:24] VITALS: BP 102/56; PULSE 86; RESP 18; TEMP 36.8; O2SAT 96
[2018-04-06] MEDS: Normal Saline Flush 10 ML SYR IVP ×2 (01:30→04:59)
[2018-04-06] MEDS: Normal Saline 1,000 ML 75 ML IV (01:45)
[2018-04-06 07:40] VITALS: BP 106/65; PULSE 91; RESP 16; TEMP 36.8; O2SAT 97
[2018-04-06] MEDS: Polymyxin B/Trimethoprim Ophth Soln 10 ML BTL OU ×4 (08:38→21:15)
[2018-04-06] MEDS: HYDROcodone 5/Acetaminophen 325 TAB PO ×3 (08:39→22:30)
[2018-04-06] MEDS: Magnesium Oxide 400 MG TAB PO (08:39)
--- NOTE | 2018-04-06 12:52 | W.PM.PROGNOT ---
Date of Service Date of service: 04/06/18 Time of Service: 12:53 Assessment and Plan (1) Colon cancer metastasized to lung: Current visit: No Status: Acute She has decided not to pursue further cancer treatment. She desires comfort measures, she is followed by Palliative care. Continue pain management. Increase [place] from BID to TID scheduled. Continue to maintain comfort. (2) Conjunctivitis: Current visit: Yes Status: Acute Improving. Continue antibiotic eye drops. Offer warm compress for comfort. (3) Dehydration: Current visit: Yes Status: Acute Improved. Discontinue IV fluids and encourage oral intake. (4) DVT prophylaxis: Current visit: Yes Status: Acute Subcutaneous Lovenox. (5) Discharge planning issues: Current visit: Yes Status: Acute She is a DNR/DNI. Care management is working on a safe discharge plan, this will likely include a long term facility. This case was discussed with Dr. Mosley who is in agreement. Subjective Interval history since last seen: Magalis is a very pleasant 72 year old female with a history of Colon cancer with lung metastasis, with history of colon resection, who was admitted from the ED for severe dehydration, hypomagnesemia, hypokalemia with both fecal and urinary incontinence. She was also found to have conjunctivitis to bilateral eyes. She is taking oral [place] in addition to PRN IV Morphine boluses. She has had some improvement in her pain, however, she is interested in increasing the [place] to TID from BID dosing. She is sleeping better. She continues to eat and drink well without nausea or vomiting. Her bowels have slowed down significantly. She denies shortness of breath, cough or wheeze, she has no chest pain/pressure or palpitations. Exam Narrative Exam Narrative: General: pleasant 72 year old female, appears frail and cachectic. Alert and oriented. HEENT: Normocephalic, atraumatic. Pupils are equal and round. Sclera are non-icteric, conjunctiva are noninjected, no discharge or drainage from eyes. Mucous membranes are moist. Cardiovascular: Heart has a regular rate and rhythm. No murmur, click, gallop or rub. Respiratory: respirations are even and unlabored. Lung sounds diminished throughout. Abdomen: thin, scaphoid, hypoactive bowel sounds, no masses appreciated. Extremities: no clubbing cyanosis or edema. Pedal pulses are faint bilaterally. Skin on bilateral feet are slightly dry, but improved. Toenails remain thick but have been trimmed. Objective Objective Clinical Data: Vital Signs Temperature 36.8 C 04/06/18 07:40 Temperature Source Tympanic 04/06/18 07:40 Pulse 91 H 04/06/18 07:40 Pulse Rhythm Regular 04/06/18 08:20 Pulse 86 03/31/18 18:50 Respiratory Rate 16 04/06/18 07:40 Respiratory Effort 04/06/18 08:20 Respiratory Depth Normal 04/06/18 08:20 Respiratory Pattern Normal 04/06/18 08:20 Blood Pressure 106/65 04/06/18 07:40 Blood Pressure Mean 94 03/31/18 18:01 Blood Pressure Position Supine 03/31/18 17:00 Pulse Oximetry 97 04/06/18 07:40 Oxygen Delivery Method Room Air 04/06/18 07:40 Oxygen Flow Rate 0 04/06/18 07:40 Pain Level 6 04/06/18 08:39 Comment 04/04/18 23:37 Intake & Output 04/05/18 04/06/18 04/06/18 23:59 11:59 23:59 Intake Total 1491.25 / 1491.25 1680 / 1680 Balance 1491.25 / 1491.25 1680 / 1680 Weight 46.5 kg Intake: IV 1011.25 / 1011.25 860 / 860 Oral 480 / 480 820 / 820 Other: Urine Color Yellow Yellow Urine Appearance Clear Clear Urine Odor None Strong Comment Incontinent x1 of a large amount of urine in the briefs. Glory cream applied. Briefs were changed. pt incontinent of very large amounts of urine. Stool Size Moderate Stool Characteristics Soft Brown Voiding Methods Diaper Diaper Incontinent Incontinent Laboratory Results WBC 8.09 k/cumm (4.4-10.8) 04/05/18 06:05 RBC 3.13 m/cumm (4.00-5.20) L 04/05/18 06:05 Hgb 10.5 g/dL (12.0-15.5) L 04/05/18 06:05 Hct 31.5 % (36.0-46.0) L 04/05/18 06:05 MCV 100.6 fL (80-95) H 04/05/18 06:05 MCH 33.5 pg (27.0-33.0) H 04/05/18 06:05 MCHC 33.3 g/dL (32.0-36.0) 04/05/18 06:05 RDW 15.8 % (11.7-14.6) H 04/05/18 06:05 Plt Count 235 x1000/uL (130-400) 04/05/18 06:05 MPV 11.2 fL (8.0-11.0) H 04/05/18 06:05 Immature Gran % 0.1 03/31/18 11:30 Neutrophils % 84.8 03/31/18 11:30 Lymphocytes % 6.6 03/31/18 11:30 Monocytes % 8.3 03/31/18 11:30 Eosinophils % 0.1 03/31/18 11:30 Basophils % 0.1 03/31/18 11:30 Absolute Neutrophils 8.20 k/cumm (1.2-6.7) H 03/31/18 11:30 Absolute Lymphocytes 0.64 k/cumm (1.2-3.4) L 03/31/18 11:30 Absolute Monocytes 0.80 k/cumm (0.11-0.7) H 03/31/18 11:30 Absolute Eosinophils 0.01 k/cumm (0.0-0.7) 03/31/18 11:30 Absolute Basophils 0.01 k/cumm (0.0-0.2) 03/31/18 11:30 Sodium 137 mmol/L (136-145) 04/02/18 07:05 Potassium 4.6 mmol/L (3.5-5.1) D 04/02/18 07:05 Chloride 104 mmol/L (98-107) 04/02/18 07:05 Carbon Dioxide 27.6 mmol/L (21.0-32.0) 04/02/18 07:05 Anion Gap 5.4 mmol/L (3-11) 04/02/18 07:05 BUN 13 mg/dL (7-18) 04/02/18 07:05 Creatinine 0.57 mg/dL (0.55-1.02) 04/02/18 07:05 Estimated GFR/1.73 m2 >= 60.00 (mL/min/1.73m2) 04/02/18 07:05 Glucose 125 mg/dL (70-100) H 04/02/18 07:05 Calcium 7.8 mg/dL (8.5-10.1) L 04/02/18 07:05 Magnesium 1.9 mg/dL (1.8-2.4) 04/02/18 07:05 Total Bilirubin 1.3 mg/dL (0.2-1.0) H 03/31/18 11:30 AST 47 U/L (15-37) H 03/31/18 11:30 ALT 22 U/L (12-78) 03/31/18 11:30 Alkaline Phosphatase 96 U/L (46-116) 03/31/18 11:30 Troponin I < 0.02 ng/mL (0.00-0.06) 03/31/18 11:30 Total Protein 7.2 g/dL (6.4-8.2) 03/31/18 11:30 Albumin 3.3 g/dL (3.4-5.0) L 03/31/18 11:30 TSH 2.37 uIU/mL (0.358-3.74) 04/01/18 06:48
--- NOTE | 2018-04-06 12:59 | PGE_ITS ---
Date of Service Date of service: 04/06/18 Time of Service: 12:53 Assessment and Plan (1) Colon cancer metastasized to lung: Current visit: No Status: Acute She has decided not to pursue further cancer treatment. She desires comfort measures, she is followed by Palliative care. Continue pain management. Increase [place] from BID to TID scheduled. Continue to maintain comfort. (2) Conjunctivitis: Current visit: Yes Status: Acute Improving. Continue antibiotic eye drops. Offer warm compress for comfort. (3) Dehydration: Current visit: Yes Status: Acute Improved. Discontinue IV fluids and encourage oral intake. (4) DVT prophylaxis: Current visit: Yes Status: Acute Subcutaneous Lovenox. (5) Discharge planning issues: Current visit: Yes Status: Acute She is a DNR/DNI. Care management is working on a safe discharge plan, this will likely include a half-way facility. This case was discussed with Dr. Mosley who is in agreement. Subjective Interval history since last seen: Magalis is a very pleasant 72 year old female with a history of Colon cancer with lung metastasis, with history of colon resection, who was admitted from the ED for severe dehydration, hypomagnesemia, hypokalemia with both fecal and urinary incontinence. She was also found to have conjunctivitis to bilateral eyes. She is taking oral [place] in addition to PRN IV Morphine boluses. She has had some improvement in her pain, however, she is interested in increasing the [place] to TID from BID dosing. She is sleeping better. She continues to eat and drink well without nausea or vomiting. Her bowels have slowed down significantly. She denies shortness of breath, cough or wheeze, she has no chest pain/pressure or palpitations. Exam Narrative Exam Narrative: General: pleasant 72 year old female, appears frail and cachectic. Alert and oriented. HEENT: Normocephalic, atraumatic. Pupils are equal and round. Sclera are non- icteric, conjunctiva are noninjected, no discharge or drainage from eyes. Mucous membranes are moist. Cardiovascular: Heart has a regular rate and rhythm. No murmur, click, gallop or rub. Respiratory: respirations are even and unlabored. Lung sounds diminished throughout. Abdomen: thin, scaphoid, hypoactive bowel sounds, no masses appreciated. Extremities: no clubbing cyanosis or edema. Pedal pulses are faint bilaterally. Skin on bilateral feet are slightly dry, but improved. Toenails remain thick but have been trimmed. Objective Objective Clinical Data: Vital Signs Temperature 36.8 C 04/06/18 07:40 Temperature Source Tympanic 04/06/18 07:40 Pulse 91 H 04/06/18 07:40 Pulse Rhythm Regular 04/06/18 08:20 Pulse 86 03/31/18 18:50 Respiratory Rate 16 04/06/18 07:40 Respiratory Effort 04/06/18 08:20 Respiratory Depth Normal 04/06/18 08:20 Respiratory Pattern Normal 04/06/18 08:20 Blood Pressure 106/65 04/06/18 07:40 Blood Pressure Mean 94 03/31/18 18:01 Blood Pressure Position Supine 03/31/18 17:00 Pulse Oximetry 97 04/06/18 07:40 Oxygen Delivery Method Room Air 04/06/18 07:40 Oxygen Flow Rate 0 04/06/18 07:40 Pain Level 6 04/06/18 08:39 Comment 04/04/18 23:37 Intake & Output 04/05/18 04/06/18 04/06/18 23:59 11:59 23:59 Intake Total 1491.25 / 1491.25 1680 / 1680 Balance 1491.25 / 1491.25 1680 / 1680 Weight 46.5 kg Intake: IV 1011.25 / 1011.25 860 / 860 Oral 480 / 480 820 / 820 Other: Urine Color Yellow Yellow Urine Appearance Clear Clear Urine Odor None Strong Comment Incontinent x1 of a large amount of urine in the briefs. Glory cream applied. Briefs were changed. pt incontinent of very large amounts of urine. Stool Size Moderate Stool Characteristics Soft Brown Voiding Methods Diaper Diaper Incontinent Incontinent Laboratory Results WBC 8.09 k/cumm (4.4-10.8) 04/05/18 06:05 RBC 3.13 m/cumm (4.00-5.20) L 04/05/18 06:05 Hgb 10.5 g/dL (12.0-15.5) L 04/05/18 06:05 Hct 31.5 % (36.0-46.0) L 04/05/18 06:05 MCV 100.6 fL (80-95) H 04/05/18 06:05 MCH 33.5 pg (27.0-33.0) H 04/05/18 06:05 MCHC 33.3 g/dL (32.0-36.0) 04/05/18 06:05 RDW 15.8 % (11.7-14.6) H 04/05/18 06:05 Plt Count 235 x1000/uL (130-400) 04/05/18 06:05 MPV 11.2 fL (8.0-11.0) H 04/05/18 06:05 Immature Gran % 0.1 03/31/18 11:30 Neutrophils % 84.8 03/31/18 11:30 Lymphocytes % 6.6 03/31/18 11:30 Monocytes % 8.3 03/31/18 11:30 Eosinophils % 0.1 03/31/18 11:30 Basophils % 0.1 03/31/18 11:30 Absolute Neutrophils 8.20 k/cumm (1.2-6.7) H 03/31/18 11:30 Absolute Lymphocytes 0.64 k/cumm (1.2-3.4) L 03/31/18 11:30 Absolute Monocytes 0.80 k/cumm (0.11-0.7) H 03/31/18 11:30 Absolute Eosinophils 0.01 k/cumm (0.0-0.7) 03/31/18 11:30 Absolute Basophils 0.01 k/cumm (0.0-0.2) 03/31/18 11:30 Sodium 137 mmol/L (136-145) 04/02/18 07:05 Potassium 4.6 mmol/L (3.5-5.1) D 04/02/18 07:05 Chloride 104 mmol/L (98-107) 04/02/18 07:05 Carbon Dioxide 27.6 mmol/L (21.0-32.0) 04/02/18 07:05 Anion Gap 5.4 mmol/L (3-11) 04/02/18 07:05 BUN 13 mg/dL (7-18) 04/02/18 07:05 Creatinine 0.57 mg/dL (0.55-1.02) 04/02/18 07:05 Estimated GFR/1.73 m2 >= 60.00 (mL/min/1.73m2) 04/02/18 07:05 Glucose 125 mg/dL (70-100) H 04/02/18 07:05 Calcium 7.8 mg/dL (8.5-10.1) L 04/02/18 07:05 Magnesium 1.9 mg/dL (1.8-2.4) 04/02/18 07:05 Total Bilirubin 1.3 mg/dL (0.2-1.0) H 03/31/18 11:30 AST 47 U/L (15-37) H 03/31/18 11:30 ALT 22 U/L (12-78) 03/31/18 11:30 Alkaline Phosphatase 96 U/L (46-116) 03/31/18 11:30 Troponin I < 0.02 ng/mL (0.00-0.06) 03/31/18 11:30 Total Protein 7.2 g/dL (6.4-8.2) 03/31/18 11:30 Albumin 3.3 g/dL (3.4-5.0) L 03/31/18 11:30 TSH 2.37 uIU/mL (0.358-3.74) 04/01/18 06:48
--- NOTE | 2018-04-06 14:29 | PDOC.CMPRO ---
- If Service Date Differs Date of service: 04/06/18 Time of Service: 14:29 Care Management Progress Note S/O: Magalis is lying in bed when this television writer visits. She states that Ana will be in this afternoon. Magalis signed a letter yesterday granting Ana permission to obtain bank statements. CM to meet with Ana and Magalis in regards to Magalis's financial status and if she would have any money available to pay privately for a SNF. Unsure as to DC plan at this time. [facility], [facility], and [facility], [facility], and [facility] currently have no availability. [facility] is the only facility whom is reviewing Magalis at this time, and they are unsure as to a skilled need. ? need for swingbed. A: 72 year old female admitted with failure to thrive, hypokalemia, weakness. P: Magalis will discharge when medically ready per MD. Discharge disposition undetermined at this time. Magalis will transport via private vehicle with a friend. CM will continue to offer support to patient and care team regarding discharge planning and disposition.
--- NOTE | 2018-04-06 14:34 | CMPROGNOTE_ITS ---
- If Service Date Differs Date of service: 04/06/18 Time of Service: 14:29 Care Management Progress Note S/O: Magalis is lying in bed when this policy writer visits. She states that Ana will be in this afternoon. Magalis signed a letter yesterday granting Ana permission to obtain bank statements. CM to meet with Ana and Magalis in regards to Magalis's financial status and if she would have any money available to pay privately for a SNF. Unsure as to DC plan at this time. [facility], [facility], and [facility], [facility], and [facility] currently have no availability. [facility] is the only facility whom is reviewing Magalis at this time , and they are unsure as to a skilled need. ? need for swingbed. A: 72 year old female admitted with failure to thrive, hypokalemia, weakness. P: Magalis will discharge when medically ready per MD. Discharge disposition undetermined at this time. Magalis will transport via private vehicle with a friend. CM will continue to offer support to patient and care team regarding discharge planning and disposition.
[2018-04-06 16:57] VITALS: BP 116/60; PULSE 93; RESP 16; TEMP 37.8; O2SAT 97
[2018-04-06] MEDS: Enoxaparin 40 MG/0.4 ML SYR SC (17:58)
[2018-04-06 17:59] VITALS: TEMP 37.8
[2018-04-06] MEDS: Acetaminophen 325 MG TAB PO (17:59)
[2018-04-06 18:15] VITALS: TEMP 37.3
[2018-04-06] MEDS: Melatonin 3 MG TAB PO (22:51)
[2018-04-07 01:15] VITALS: BP 109/63; PULSE 94; RESP 16; TEMP 37.1; O2SAT 97
[2018-04-07] MEDS: HYDROcodone 5/Acetaminophen 325 TAB PO ×3 (07:25→19:55)
[2018-04-07 07:35] VITALS: BP 101/68; PULSE 86; RESP 17; TEMP 36.8; O2SAT 97
[2018-04-07] MEDS: Magnesium Oxide 400 MG TAB PO (07:36)
[2018-04-07] MEDS: Polymyxin B/Trimethoprim Ophth Soln 10 ML BTL OU ×4 (07:37→19:56)
--- NOTE | 2018-04-07 12:10 | PDOC.CMPRO ---
- If Service Date Differs Date of service: 04/07/18 Time of Service: 12:10 Care Management Progress Note S/O: Magalis ('Natalie' is lying in bed when CM visits this morning. Food services is taking Natalie's order for lunch, dinner, and tomorrow morning's breakfast when CM stops in and Natalie is animated and engaged . She is open to conversation, makes good eye contact, and is talkative. Natalie reports that she took a shower this morning and a friend brought her new clothes to change into. She reports feeling well and having a good appetite, reportedly eating approximately 75% of her meals. Natalie is very active with the [employer] in [place] and discussed politics with this CM for quite some time. CM and Natalie discuss 'next steps' regarding discharge planning. . [facility] continues to review Natalie's referral however offering of a bed is not anticipated at this time due to questions of a skilled need and payer source. Per MD and GUEST RELATIONS AGENT, Natalie may transfer to swingbed I status in lieu of other options. Natalie acknowledges that she feels unable to go home at this time. CM will continue to follow. A: 72 year old female admitted with failure to thrive, hypokalemia, weakness. P: Natalie will discharge when medically ready per MD. Discharge disposition undetermined at this time; SWBI at [facility] vs. SNF placement. Natalie will transport via private vehicle with a friend. CM will continue to offer support to patient and care team regarding discharge planning and disposition.
--- NOTE | 2018-04-07 12:19 | CMPROGNOTE_ITS ---
- If Service Date Differs Date of service: 04/07/18 Time of Service: 12:10 Care Management Progress Note S/O: Magalis ('Natalie' is lying in bed when CM visits this morning. Food services is taking Natalie's order for lunch, dinner, and tomorrow morning's breakfast when CM stops in and Natalie is animated and engaged . She is open to conversation, makes good eye contact, and is talkative. Natalie reports that she took a shower this morning and a friend brought her new clothes to change into. She reports feeling well and having a good appetite, reportedly eating approximately 75% of her meals. Natalie is very active with the [employer] in [place] and discussed politics with this CM for quite some time. CM and Natalie discuss 'next steps' regarding discharge planning. . [facility] continues to review Natalie's referral however offering of a bed is not anticipated at this time due to questions of a skilled need and payer source. Per MD and CLAM SHUCKER, Natalie may transfer to swingbed I status in lieu of other options. Natalie acknowledges that she feels unable to go home at this time. CM will continue to follow. A: 72 year old female admitted with failure to thrive, hypokalemia, weakness. P: Natalie will discharge when medically ready per MD. Discharge disposition undetermined at this time; SWBI at [facility] vs. SNF placement. Natalie will transport via private vehicle with a friend. CM will continue to offer support to patient and care team regarding discharge planning and disposition.
[2018-04-07 16:00] VITALS: BP 116/65; PULSE 85; RESP 20; TEMP 37.3; O2SAT 98
--- NOTE | 2018-04-07 16:08 | CHAPLAIN ---
Natalie said she felt much more comfortable after having a shower this morning, and talked about how much she enjoyed the hot water of the shower. 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 Natalie continues to have several friends who visit her. Today she talked about her pets, and their importance in her life. Her cat, Donis, has been taken in by a foster family and Natalie is relieved that Donis is in a good home.
--- NOTE | 2018-04-07 17:05 | W.PM.PROGNOT ---
Date of Service Date of service: 04/07/18 Time of Service: 17:05 Assessment and Plan (1) Colon cancer metastasized to lung: Current visit: No Status: Acute She has decided not to pursue further cancer treatment. She desires comfort measures, she is followed by Palliative care. Continue pain management. Continue [place] TID scheduled. Continue PRN IV morphine. Continue to maintain comfort. (2) Conjunctivitis: Current visit: Yes Status: Acute Improving. Continue antibiotic eye drops for 7-10 day course. Offer warm compress for comfort. (3) Dehydration: Current visit: Yes Status: Acute Improved. Encourage oral intake. (4) DVT prophylaxis: Current visit: Yes Status: Acute Subcutaneous Lovenox. (5) Discharge planning issues: Current visit: Yes Status: Acute She is a DNR/DNI. Care management is working on a safe discharge plan, this will likely include a nursing home facility. This case was discussed with Dr. Mosley who is in agreement. Subjective Interval history since last seen: Magalis is a very pleasant 72 year old female with a history of Colon cancer with lung metastasis, with history of colon resection, who was admitted from the ED for severe dehydration, hypomagnesemia, hypokalemia with both fecal and urinary incontinence. She is also being treated for conjunctivitis of bilateral eyes. She is taking oral [place] TID with IV morphine boluses as needed for pain control. She reports today that she feels that her pain is well controlled. She is sleeping better. She is eating and drinking. No nausea or vomiting. She continues to have small loose stools, they are less frequent. She denies shortness of breath, cough or wheeze, she has no chest pain/pressure or palpitations. Exam Narrative Exam Narrative: General: Very pleasant 72 year old female, appears frail and cachectic. Alert and oriented. Skin is pale. HEENT: Normocephalic, atraumatic. Pupils are equal and round. Sclera are non-icteric, conjunctiva are noninjected, no discharge or drainage from eyes. Mucous membranes are moist. Cardiovascular: Heart has a regular rate and rhythm. No murmur, click, gallop or rub. Respiratory: Her respirations are even and unlabored. Lung sounds diminished throughout. No rales, rhonchi or wheeze. Abdomen: thin, scaphoid, normoactive bowel sounds, no masses appreciated. Extremities: no clubbing, cyanosis or edema. Pedal pulses are faint bilaterally. Skin on bilateral feet are slightly dry, but improved. Toenails remain thick but have been trimmed. Objective Objective Clinical Data: Vital Signs Temperature 37.3 C 04/07/18 16:00 Temperature Source Temporal Artery Scan 04/07/18 16:00 Pulse 85 04/07/18 16:00 Pulse Rhythm Regular 04/07/18 16:00 Pulse 86 03/31/18 18:50 Respiratory Rate 20 04/07/18 16:00 Respiratory Effort 04/07/18 16:00 Respiratory Depth Normal 04/07/18 16:00 Respiratory Pattern Normal 04/07/18 16:00 Blood Pressure 116/65 04/07/18 16:00 Blood Pressure Mean 94 03/31/18 18:01 Blood Pressure Position Supine 03/31/18 17:00 Pulse Oximetry 98 04/07/18 16:00 Oxygen Delivery Method Room Air 04/07/18 16:00 Oxygen Flow Rate 0 04/07/18 16:00 Pain Level 3 04/07/18 13:21 Comment 04/07/18 01:15 Intake & Output 04/06/18 04/07/18 04/07/18 23:59 11:59 23:59 Intake Total 1298.75 / 1298.75 420 / 420 240 / 240 Balance 1298.75 / 1298.75 420 / 420 240 / 240 Weight 46 kg Intake: IV 818.75 / 818.75 Oral 480 / 480 420 / 420 240 / 240 Other: Urine Color Pale Yellow Yellow Urine Appearance Clear Clear Urine Odor Strong Comment pt incontinent of large amounts of urine. incontinent of xlg amt of urine.INcontinent care: cleansed w/warm wipes and cream applied. Stool Size Moderate Small Small Stool Characteristics Soft Soft Soft Brown Brown Brown Voiding Methods Diaper Diaper Diaper Incontinent Incontinent Incontinent Laboratory Results WBC 8.09 k/cumm (4.4-10.8) 04/05/18 06:05 RBC 3.13 m/cumm (4.00-5.20) L 04/05/18 06:05 Hgb 10.5 g/dL (12.0-15.5) L 04/05/18 06:05 Hct 31.5 % (36.0-46.0) L 04/05/18 06:05 MCV 100.6 fL (80-95) H 04/05/18 06:05 MCH 33.5 pg (27.0-33.0) H 04/05/18 06:05 MCHC 33.3 g/dL (32.0-36.0) 04/05/18 06:05 RDW 15.8 % (11.7-14.6) H 04/05/18 06:05 Plt Count 235 x1000/uL (130-400) 04/05/18 06:05 MPV 11.2 fL (8.0-11.0) H 04/05/18 06:05 Immature Gran % 0.1 03/31/18 11:30 Neutrophils % 84.8 03/31/18 11:30 Lymphocytes % 6.6 03/31/18 11:30 Monocytes % 8.3 03/31/18 11:30 Eosinophils % 0.1 03/31/18 11:30 Basophils % 0.1 03/31/18 11:30 Absolute Neutrophils 8.20 k/cumm (1.2-6.7) H 03/31/18 11:30 Absolute Lymphocytes 0.64 k/cumm (1.2-3.4) L 03/31/18 11:30 Absolute Monocytes 0.80 k/cumm (0.11-0.7) H 03/31/18 11:30 Absolute Eosinophils 0.01 k/cumm (0.0-0.7) 03/31/18 11:30 Absolute Basophils 0.01 k/cumm (0.0-0.2) 03/31/18 11:30 Sodium 137 mmol/L (136-145) 04/02/18 07:05 Potassium 4.6 mmol/L (3.5-5.1) D 04/02/18 07:05 Chloride 104 mmol/L (98-107) 04/02/18 07:05 Carbon Dioxide 27.6 mmol/L (21.0-32.0) 04/02/18 07:05 Anion Gap 5.4 mmol/L (3-11) 04/02/18 07:05 BUN 13 mg/dL (7-18) 04/02/18 07:05 Creatinine 0.57 mg/dL (0.55-1.02) 04/02/18 07:05 Estimated GFR/1.73 m2 >= 60.00 (mL/min/1.73m2) 04/02/18 07:05 Glucose 125 mg/dL (70-100) H 04/02/18 07:05 Calcium 7.8 mg/dL (8.5-10.1) L 04/02/18 07:05 Magnesium 1.9 mg/dL (1.8-2.4) 04/02/18 07:05 Total Bilirubin 1.3 mg/dL (0.2-1.0) H 03/31/18 11:30 AST 47 U/L (15-37) H 03/31/18 11:30 ALT 22 U/L (12-78) 03/31/18 11:30 Alkaline Phosphatase 96 U/L (46-116) 03/31/18 11:30 Troponin I < 0.02 ng/mL (0.00-0.06) 03/31/18 11:30 Total Protein 7.2 g/dL (6.4-8.2) 03/31/18 11:30 Albumin 3.3 g/dL (3.4-5.0) L 03/31/18 11:30 TSH 2.37 uIU/mL (0.358-3.74) 04/01/18 06:48
[2018-04-07] MEDS: Enoxaparin 40 MG/0.4 ML SYR SC (17:41)
[2018-04-07 20:00] VITALS: BP 103/76; PULSE 77; RESP 16; O2SAT 95
[2018-04-07 21:42] VITALS: TEMP 37.5
[2018-04-07] MEDS: Melatonin 3 MG TAB PO (21:42)
[2018-04-07] MEDS: Normal Saline Flush 10 ML SYR IVP (21:51)
[2018-04-08 00:17] VITALS: BP 97/53; PULSE 92; RESP 19; TEMP 37; O2SAT 97
[2018-04-08] MEDS: Normal Saline Flush 10 ML SYR IVP ×5 (00:49→19:28)
[2018-04-08 07:20] VITALS: BP 107/67; PULSE 87; RESP 19; TEMP 37.2; O2SAT 98
[2018-04-08 07:35] VITALS: O2SAT 97
[2018-04-08] MEDS: Polymyxin B/Trimethoprim Ophth Soln 10 ML BTL OU ×4 (07:40→19:35)
[2018-04-08] MEDS: Magnesium Oxide 400 MG TAB PO (07:41)
[2018-04-08] MEDS: HYDROcodone 5/Acetaminophen 325 TAB PO ×3 (07:41→19:29)
[2018-04-08 07:50] VITALS: BP 116/65; PULSE 85; RESP 20; TEMP 37.3; O2SAT 98
--- NOTE | 2018-04-08 13:00 | PDOC.CMPRO ---
- If Service Date Differs Date of service: 04/08/18 Time of Service: 13:00 Care Management Progress Note S/O: Natalie is lying in bed when CM visits two times today. She is engaged in conversation and makes good eye contact, however reports that she is very tired and is 'achy'. CM notified RN Cynthia. Natalie states that she slept approximately 4 hours straight last evening, and per nursing, she had three morphine doses for pain over the course of last night (1mg IVP at 2150, 0525, and 0049). Discussion with MD regarding order of a CADD pump for pain management. MD is reviewing medication options and will be making adjustments today. Due to adjustments, Natalie will likely not transfer to swingbed status today; possibly tomorrow. ROD spoke with Rogelio from [facility] who is continuing to review Natalie's referral. Rogelio reports that is Natalie has a 'skilled' reason for two weeks and then Natalie could pay two weeks+ out of pocket, and then that he could possibly offer her a bed. ROD spoke with Ad[facility] Nixon at [facility]. Adán had previously spoken with Chaplain Merced, and Dr. Pink regarding Natalie and he would like to come meet with her. Discussion regarding her home and selling vs. not selling ensued with SALOMON Floyd today, and per Mariel, Natalie seems more open to the possibilities of selling so that she can transfer somewhere nice. Adán reports that he will follow up with CM between Wednesday and Wednesday of next week to schedule a visit. He additionally reports that if all worked out, he would be unable to offer Natalie a bed until May 02 at the earliest. CM will continue to follow. A: 72 year old female admitted with failure to thrive, hypokalemia, weakness. P: Natalie will discharge when medically ready per MD. Discharge disposition undetermined at this time; SWBI at [facility] vs. SNF placement. Natalie will transport via private vehicle with a friend. CM will continue to offer support to patient and care team regarding discharge planning and disposition.
--- NOTE | 2018-04-08 15:24 | W.PM.PROGNOT ---
Date of Service Date of service: 04/08/18 Time of Service: 15:26 Assessment and Plan (1) Colon cancer metastasized to lung: Current visit: No Status: Acute She has decided not to pursue further cancer treatment. She desires comfort measures, she is followed by Palliative care. Continue pain management for cancer related pain. Continue [place] TID scheduled. Continue PRN IV morphine. Continue to maintain comfort. If her requirement for pain medication continues to increase, consider low dose morphine CADD pump. (2) Conjunctivitis: Current visit: Yes Status: Acute Improving. She is on day #6 of antibiotic drops. Offer warm compress for comfort. (3) Dehydration: Current visit: Yes Status: Deleted Improved. Encourage oral intake. (4) DVT prophylaxis: Current visit: Yes Status: Acute Subcutaneous Lovenox. (5) Discharge planning issues: Current visit: Yes Status: Acute She is a DNR/DNI. Care management is working on a safe discharge plan, this will likely include a [facility] facility. She is also considering hospice. This case was discussed with Dr. Mosley who is in agreement. Subjective Interval history since last seen: Magalis is a very pleasant 72 year old female with a history of Colon cancer with lung metastasis, with history of colon resection, who was admitted from the ED for severe dehydration, hypomagnesemia, hypokalemia with both fecal and urinary incontinence. She is also being treated for conjunctivitis of bilateral eyes. She is taking oral [place] TID with IV morphine boluses as needed for pain control. She slept well last night. She reports that her pain is fairly well controlled. We discussed the possibility of a low dose morphine CADD pump, which she is considering. She is eating and drinking without nausea. She continues to have some incontinence of loose stool. She denies shortness of breath, cough or wheeze. She denies chest pain/pressure, palpitations. She is considering the possibility of hospice care. She is not interested in strengthening with PT. She is tired of fighting, she wants comfort care. Exam Narrative Exam Narrative: General: Very pleasant 72 year old female, appears frail and cachectic. Alert and oriented. Skin is pale. She is pleasant and cooperative. Neuro: speech is clear and articulate, no focal deficits. HEENT: Normocephalic, atraumatic. Pupils are equal and round. Sclera are non-icteric, conjunctiva are noninjected, no discharge or drainage from eyes. Mucous membranes are moist. Cardiovascular: Heart has a regular rate and rhythm. No murmur, click, gallop or rub. Respiratory: Her respirations are even and unlabored, no coughing. Lung sounds diminished throughout. No rales, rhonchi or wheeze. Abdomen: thin, scaphoid, normoactive bowel sounds, no masses appreciated. Extremities: no clubbing, cyanosis or edema. Pedal pulses are faint bilaterally. Toenails remain thick but have been trimmed. Objective Objective Clinical Data: Vital Signs Temperature 37.3 C 04/08/18 07:50 Temperature Source Tympanic 04/08/18 07:50 Pulse 85 04/08/18 07:50 Pulse Rhythm Regular 04/08/18 07:46 Pulse 86 03/31/18 18:50 Respiratory Rate 20 04/08/18 07:50 Respiratory Effort Non-Labored 04/08/18 07:46 Respiratory Depth Normal 04/08/18 07:46 Respiratory Pattern Normal 04/08/18 07:46 Blood Pressure 116/65 04/08/18 07:50 Blood Pressure Mean 94 03/31/18 18:01 Blood Pressure Position Supine 03/31/18 17:00 Pulse Oximetry 98 04/08/18 07:50 Oxygen Delivery Method Room Air 04/08/18 07:50 Oxygen Flow Rate 0 04/08/18 07:50 Pain Level 6 04/08/18 13:10 Comment 04/08/18 07:50 Intake & Output 04/07/18 04/08/18 04/08/18 23:59 11:59 23:59 Intake Total 240 / 240 240 / 240 240 / 240 Balance 240 / 240 240 / 240 240 / 240 Weight 43.8 kg Intake: Oral 240 / 240 240 / 240 240 / 240 Other: Urine Color Yellow Straw Urine Appearance Clear Clear Urine Odor Normal Comment incontinent large amount of urine pt incontinent of large amounts. pt incontinent of large amounts of urine. Stool Size Small Small Moderate Stool Characteristics Soft Soft Soft Zayas Formed Zayas Voiding Methods Incontinent Diaper Incontinent Laboratory Results WBC 8.09 k/cumm (4.4-10.8) 04/05/18 06:05 RBC 3.13 m/cumm (4.00-5.20) L 04/05/18 06:05 Hgb 10.5 g/dL (12.0-15.5) L 04/05/18 06:05 Hct 31.5 % (36.0-46.0) L 04/05/18 06:05 MCV 100.6 fL (80-95) H 04/05/18 06:05 MCH 33.5 pg (27.0-33.0) H 04/05/18 06:05 MCHC 33.3 g/dL (32.0-36.0) 04/05/18 06:05 RDW 15.8 % (11.7-14.6) H 04/05/18 06:05 Plt Count 235 x1000/uL (130-400) 04/05/18 06:05 MPV 11.2 fL (8.0-11.0) H 04/05/18 06:05 Immature Gran % 0.1 03/31/18 11:30 Neutrophils % 84.8 03/31/18 11:30 Lymphocytes % 6.6 03/31/18 11:30 Monocytes % 8.3 03/31/18 11:30 Eosinophils % 0.1 03/31/18 11:30 Basophils % 0.1 03/31/18 11:30 Absolute Neutrophils 8.20 k/cumm (1.2-6.7) H 03/31/18 11:30 Absolute Lymphocytes 0.64 k/cumm (1.2-3.4) L 03/31/18 11:30 Absolute Monocytes 0.80 k/cumm (0.11-0.7) H 03/31/18 11:30 Absolute Eosinophils 0.01 k/cumm (0.0-0.7) 03/31/18 11:30 Absolute Basophils 0.01 k/cumm (0.0-0.2) 03/31/18 11:30 Sodium 137 mmol/L (136-145) 04/02/18 07:05 Potassium 4.6 mmol/L (3.5-5.1) D 04/02/18 07:05 Chloride 104 mmol/L (98-107) 04/02/18 07:05 Carbon Dioxide 27.6 mmol/L (21.0-32.0) 04/02/18 07:05 Anion Gap 5.4 mmol/L (3-11) 04/02/18 07:05 BUN 13 mg/dL (7-18) 04/02/18 07:05 Creatinine 0.57 mg/dL (0.55-1.02) 04/02/18 07:05 Estimated GFR/1.73 m2 >= 60.00 (mL/min/1.73m2) 04/02/18 07:05 Glucose 125 mg/dL (70-100) H 04/02/18 07:05 Calcium 7.8 mg/dL (8.5-10.1) L 04/02/18 07:05 Magnesium 1.9 mg/dL (1.8-2.4) 04/02/18 07:05 Total Bilirubin 1.3 mg/dL (0.2-1.0) H 03/31/18 11:30 AST 47 U/L (15-37) H 03/31/18 11:30 ALT 22 U/L (12-78) 03/31/18 11:30 Alkaline Phosphatase 96 U/L (46-116) 03/31/18 11:30 Troponin I < 0.02 ng/mL (0.00-0.06) 03/31/18 11:30 Total Protein 7.2 g/dL (6.4-8.2) 03/31/18 11:30 Albumin 3.3 g/dL (3.4-5.0) L 03/31/18 11:30 TSH 2.37 uIU/mL (0.358-3.74) 04/01/18 06:48
[2018-04-08 15:48] VITALS: BP 121/66; PULSE 91; RESP 17; TEMP 37; O2SAT 97
--- NOTE | 2018-04-08 16:01 | CHAPLAIN ---
Natalie was resting in bed when I visited. SALOMON Floyd came in to show Natalie online photos of [facility] home, which Natalie seemed to like. She is realistic about her health, and said she knows her cancer medication is no longer working affective, but she said she is grateful for the six years she has lived with her cancer. Natalie said she doesn't have any regrets, but wishes the health care system was different and involved a single-payer system so people didn't have to postpone preventative care, like colonoscopies, because of costs. Her tumor was discovered during her colonoscopy. Natalie knows that moving into Adán's home would require her to sell her house and she said she has comes to terms with knowing that she won't be able to live independently any longer, but she said she would like to not live in an institution. She has a childhood friend living in [place] who in phone calls has encouraged Natalie to consider working to get stronger and going home, Natalie said, but she realizes that is not practical at this time. Natalie has strong [place] of friends who continue to visit and are supportive. She regrets that she can no longer have her cat, but was happy to hear that Adán has a dog at his house. (Natalie's cat is being cared for by a foster family and she is grateful for that.)
[2018-04-08] MEDS: Enoxaparin 40 MG/0.4 ML SYR SC (18:07)
[2018-04-08] MEDS: Melatonin 3 MG TAB PO (19:30)
[2018-04-09] MEDS: Normal Saline Flush 10 ML SYR IVP ×5 (02:40→22:12)
[2018-04-09] MEDS: HYDROcodone 5/Acetaminophen 325 TAB PO ×3 (08:26→19:27)
[2018-04-09] MEDS: Magnesium Oxide 400 MG TAB PO (08:27)
[2018-04-09] MEDS: Polymyxin B/Trimethoprim Ophth Soln 10 ML BTL OU ×4 (08:27→19:27)
--- NOTE | 2018-04-09 13:05 | PGE_ITS ---
Date of Service Date of service: 04/09/18 Time of Service: 10:58 Assessment and Plan (1) Colon cancer metastasized to lung: Current visit: No Status: Acute She has decided not to pursue further cancer treatment. She is now on comfort measures, she is followed by Palliative care. Continue pain management for cancer related pain, [place] TID scheduled and PRN IV morphine as this appears to be adequate. Continue to maintain comfort. We did discuss her long- term goals. She imagines dying at a private home hospice care she has identified in [facility]. I do not think she is ready for discharge, however, but she is getting strength back so I think her prognosis is at least weeks to months. He will work with active care consult to set up formal hospice care arrangement upon discharge (2) Conjunctivitis: Current visit: Yes Status: Acute Improving. She is on day #7 of antibiotic drops. Offer warm compress for comfort. (3) Dehydration: Current visit: Yes Status: Acute Improved. Encourage oral intake. (4) DVT prophylaxis: Current visit: Yes Status: Acute Subcutaneous Lovenox. (5) Discharge planning issues: Current visit: Yes Status: Acute She is a DNR/DNI. 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 Subjective Patient reports: no new complaints, feels better and voiding w/o difficulty; denies shortness of breath and fever Interval history since last seen: Eating is eating and feels like she is gaining weight and strength, though she still needs help to get up and walk around the room. She does have pain in her back and buttocks that she attributes to the cancer, but it is currently well controlled with the oral pain medication. She is swallowing her pills and she denies nausea. Exam Narrative Exam Narrative: General: Very pleasant. appears frail and cachectic. Alert and oriented. Skin is pale. She is pleasant and cooperative, smiling Neuro: speech is clear and articulate, no focal deficits. HEENT: Sclera are non-icteric, conjunctiva are noninjected. Mucous membranes are moist. Cardiovascular: Heart has a regular rate and rhythm. No murmur, click, gallop or rub. Respiratory: Her respirations are even and unlabored, no coughing. Lung sounds diminished throughout. No rales, rhonchi or wheeze. Abdomen: thin, scaphoid, normoactive bowel sounds, no masses appreciated. Extremities: no clubbing, cyanosis or edema. Objective Objective Clinical Data: Vital Signs Temperature 37.0 C 04/08/18 15:48 Temperature Source Tympanic 04/08/18 15:48 Pulse 91 H 04/08/18 15:48 Pulse Rhythm Regular 04/08/18 16:30 Pulse 86 03/31/18 18:50 Respiratory Rate 17 04/08/18 15:48 Respiratory Effort 04/09/18 08:29 Respiratory Depth Normal 04/09/18 08:29 Respiratory Pattern Normal 04/09/18 08:29 Blood Pressure 121/66 04/08/18 15:48 Blood Pressure Mean 94 03/31/18 18:01 Blood Pressure Position Supine 03/31/18 17:00 Pulse Oximetry 97 04/08/18 15:48 Oxygen Delivery Method Room Air 04/08/18 15:48 Oxygen Flow Rate 0 04/08/18 15:48 Pain Level 6 04/09/18 06:39 Comment 04/08/18 07:50 Intake & Output 04/08/18 04/09/18 04/09/18 23:59 11:59 23:59 Intake Total 401 / 401 870 / 870 Balance 401 / 401 870 / 870 Intake: IV 41 / 41 Oral 360 / 360 870 / 870 Other: Comment pt incontinent of large amounts of urine. incontinent large amount of urine Stool Size Small Small Small Stool Characteristics Soft Soft Soft Formed Brown Voiding Methods Diaper Diaper Incontinent Incontinent Laboratory Results WBC 8.09 k/cumm (4.4-10.8) 04/05/18 06:05 RBC 3.13 m/cumm (4.00-5.20) L 04/05/18 06:05 Hgb 10.5 g/dL (12.0-15.5) L 04/05/18 06:05 Hct 31.5 % (36.0-46.0) L 04/05/18 06:05 MCV 100.6 fL (80-95) H 04/05/18 06:05 MCH 33.5 pg (27.0-33.0) H 04/05/18 06:05 MCHC 33.3 g/dL (32.0-36.0) 04/05/18 06:05 RDW 15.8 % (11.7-14.6) H 04/05/18 06:05 Plt Count 235 x1000/uL (130-400) 04/05/18 06:05 MPV 11.2 fL (8.0-11.0) H 04/05/18 06:05 Immature Gran % 0.1 03/31/18 11:30 Neutrophils % 84.8 03/31/18 11:30 Lymphocytes % 6.6 03/31/18 11:30 Monocytes % 8.3 03/31/18 11:30 Eosinophils % 0.1 03/31/18 11:30 Basophils % 0.1 03/31/18 11:30 Absolute Neutrophils 8.20 k/cumm (1.2-6.7) H 03/31/18 11:30 Absolute Lymphocytes 0.64 k/cumm (1.2-3.4) L 03/31/18 11:30 Absolute Monocytes 0.80 k/cumm (0.11-0.7) H 03/31/18 11:30 Absolute Eosinophils 0.01 k/cumm (0.0-0.7) 03/31/18 11:30 Absolute Basophils 0.01 k/cumm (0.0-0.2) 03/31/18 11:30 Sodium 137 mmol/L (136-145) 04/02/18 07:05 Potassium 4.6 mmol/L (3.5-5.1) D 04/02/18 07:05 Chloride 104 mmol/L (98-107) 04/02/18 07:05 Carbon Dioxide 27.6 mmol/L (21.0-32.0) 04/02/18 07:05 Anion Gap 5.4 mmol/L (3-11) 04/02/18 07:05 BUN 13 mg/dL (7-18) 04/02/18 07:05 Creatinine 0.57 mg/dL (0.55-1.02) 04/02/18 07:05 Estimated GFR/1.73 m2 >= 60.00 (mL/min/1.73m2) 04/02/18 07:05 Glucose 125 mg/dL (70-100) H 04/02/18 07:05 Calcium 7.8 mg/dL (8.5-10.1) L 04/02/18 07:05 Magnesium 1.9 mg/dL (1.8-2.4) 04/02/18 07:05 Total Bilirubin 1.3 mg/dL (0.2-1.0) H 03/31/18 11:30 AST 47 U/L (15-37) H 03/31/18 11:30 ALT 22 U/L (12-78) 03/31/18 11:30 Alkaline Phosphatase 96 U/L (46-116) 03/31/18 11:30 Troponin I < 0.02 ng/mL (0.00-0.06) 03/31/18 11:30 Total Protein 7.2 g/dL (6.4-8.2) 03/31/18 11:30 Albumin 3.3 g/dL (3.4-5.0) L 03/31/18 11:30 TSH 2.37 uIU/mL (0.358-3.74) 04/01/18 06:48
--- NOTE | 2018-04-09 16:19 | PDOC.CMPRO ---
Care Management Progress Note S/O: Resting in bed and stated hat management of pain is her concern today. Alert and readily engages in conversation. There have been no changes in the plan as outlined in the 04/08 Progress note. A: 72 y.o. terminally ill female admitted for failure to thrive and now onCMO P: Magalis lives alone and will need to make arrangements for the sale of her home and plans to receive Hospice Care at a private facilityof LTC facility. Details yet to be determined.
[2018-04-09] MEDS: Melatonin 3 MG TAB PO (22:13)
[2018-04-10] MEDS: Normal Saline Flush 10 ML SYR IVP ×4 (04:43→23:33)
[2018-04-10] MEDS: HYDROcodone 5/Acetaminophen 325 TAB PO ×3 (08:12→20:31)
[2018-04-10] MEDS: Magnesium Oxide 400 MG TAB PO (08:12)
[2018-04-10] MEDS: Polymyxin B/Trimethoprim Ophth Soln 10 ML BTL OU ×4 (09:36→20:31)
--- NOTE | 2018-04-10 11:54 | W.PM.PROGNOT ---
Date of Service Date of service: 04/10/18 Time of Service: 11:54 Assessment and Plan (1) Colon cancer metastasized to lung: Current visit: No Status: Acute She has decided not to pursue further cancer treatment. She is now on comfort measures, she is followed by Palliative care. Continue pain management for cancer related pain, [place] TID scheduled and PRN IV morphine as this appears to be adequate. I encouraged her not to hesitate to ask for additional medication if her pain worsens or she develops other symptoms. At this point, she is approaching clinical stability, although she needs ongoing care due to weakness and deconditioning. (2) Conjunctivitis: Current visit: Yes Status: Acute Improving. She is on day #8 of antibiotic drops. Will complete 10 days. Offer warm compress for comfort. (3) DVT prophylaxis: Current visit: Yes Status: Acute Subcutaneous Lovenox. (4) Discharge planning issues: Current visit: Yes Status: Acute She is a DNR/DNI. 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 Subjective Patient reports: no new complaints and tolerating a regular diet; denies diarrhea, nausea, vomiting and fever Interval history since last seen: 80 states she feels okay and she is eating well, but she is still quite weak and needs help to get up around the room. States her pain is controlled with occasional morphine in addition to her oral therapy. She denies new symptoms such as nausea or constipation. Exam Narrative Exam Narrative: General: appears frail and cachectic. Alert and oriented. Skin is pale. She is pleasant and cooperative, smiling Neuro: speech is clear and articulate, no focal deficits. HEENT: Sclera are non-icteric, conjunctiva are noninjected. Mucous membranes are moist. Cardiovascular: Heart has a regular rate and rhythm. No murmur, click, gallop or rub. Respiratory: Her respirations are even and unlabored, no coughing. Lung sounds diminished throughout. No rales, rhonchi or wheeze. Abdomen: thin, scaphoid, normoactive bowel sounds,not tender. Extremities: no clubbing, cyanosis or edema. Objective Objective Clinical Data: Vital Signs Temperature 37.0 C 04/08/18 15:48 Temperature Source Tympanic 04/08/18 15:48 Pulse 91 H 04/08/18 15:48 Pulse Rhythm Regular 04/08/18 16:30 Pulse 86 03/31/18 18:50 Respiratory Rate 17 04/08/18 15:48 Respiratory Effort 04/10/18 00:32 Respiratory Depth Normal 04/10/18 00:32 Respiratory Pattern Normal 04/10/18 00:32 Blood Pressure 121/66 04/08/18 15:48 Blood Pressure Mean 94 03/31/18 18:01 Blood Pressure Position Supine 03/31/18 17:00 Pulse Oximetry 97 04/08/18 15:48 Oxygen Delivery Method Room Air 04/08/18 15:48 Oxygen Flow Rate 0 04/08/18 15:48 Pain Level 3 04/10/18 08:12 Comment 04/08/18 07:50 Intake & Output 04/09/18 04/09/18 04/10/18 11:59 23:59 11:59 Intake Total 870 / 870 500 / 500 Balance 870 / 870 500 / 500 Intake: IV 20 / 20 Oral 870 / 870 480 / 480 Other: Urine Appearance Clear Comment pt incontinent of small amounts. Stool Size Small Small Stool Characteristics Soft Soft Voiding Methods Diaper Diaper Diaper Incontinent Incontinent Incontinent Laboratory Results WBC 8.09 k/cumm (4.4-10.8) 04/05/18 06:05 RBC 3.13 m/cumm (4.00-5.20) L 04/05/18 06:05 Hgb 10.5 g/dL (12.0-15.5) L 04/05/18 06:05 Hct 31.5 % (36.0-46.0) L 04/05/18 06:05 MCV 100.6 fL (80-95) H 04/05/18 06:05 MCH 33.5 pg (27.0-33.0) H 04/05/18 06:05 MCHC 33.3 g/dL (32.0-36.0) 04/05/18 06:05 RDW 15.8 % (11.7-14.6) H 04/05/18 06:05 Plt Count 235 x1000/uL (130-400) 04/05/18 06:05 MPV 11.2 fL (8.0-11.0) H 04/05/18 06:05 Immature Gran % 0.1 03/31/18 11:30 Neutrophils % 84.8 03/31/18 11:30 Lymphocytes % 6.6 03/31/18 11:30 Monocytes % 8.3 03/31/18 11:30 Eosinophils % 0.1 03/31/18 11:30 Basophils % 0.1 03/31/18 11:30 Absolute Neutrophils 8.20 k/cumm (1.2-6.7) H 03/31/18 11:30 Absolute Lymphocytes 0.64 k/cumm (1.2-3.4) L 03/31/18 11:30 Absolute Monocytes 0.80 k/cumm (0.11-0.7) H 03/31/18 11:30 Absolute Eosinophils 0.01 k/cumm (0.0-0.7) 03/31/18 11:30 Absolute Basophils 0.01 k/cumm (0.0-0.2) 03/31/18 11:30 Sodium 137 mmol/L (136-145) 04/02/18 07:05 Potassium 4.6 mmol/L (3.5-5.1) D 04/02/18 07:05 Chloride 104 mmol/L (98-107) 04/02/18 07:05 Carbon Dioxide 27.6 mmol/L (21.0-32.0) 04/02/18 07:05 Anion Gap 5.4 mmol/L (3-11) 04/02/18 07:05 BUN 13 mg/dL (7-18) 04/02/18 07:05 Creatinine 0.57 mg/dL (0.55-1.02) 04/02/18 07:05 Estimated GFR/1.73 m2 >= 60.00 (mL/min/1.73m2) 04/02/18 07:05 Glucose 125 mg/dL (70-100) H 04/02/18 07:05 Calcium 7.8 mg/dL (8.5-10.1) L 04/02/18 07:05 Magnesium 1.9 mg/dL (1.8-2.4) 04/02/18 07:05 Total Bilirubin 1.3 mg/dL (0.2-1.0) H 03/31/18 11:30 AST 47 U/L (15-37) H 03/31/18 11:30 ALT 22 U/L (12-78) 03/31/18 11:30 Alkaline Phosphatase 96 U/L (46-116) 03/31/18 11:30 Troponin I < 0.02 ng/mL (0.00-0.06) 03/31/18 11:30 Total Protein 7.2 g/dL (6.4-8.2) 03/31/18 11:30 Albumin 3.3 g/dL (3.4-5.0) L 03/31/18 11:30 TSH 2.37 uIU/mL (0.358-3.74) 04/01/18 06:48
--- NOTE | 2018-04-10 12:03 | PDOC.CMPRO ---
Care Management Progress Note S/O: Sitting up in bed and appeared comfortable. States her pain is being managed well and she does ask for the pain medicine when needed in addition to the scheduled [place]. Stated she has her cat, Donis, in foster care with friends but now thinks he may need stay there as she most likely will not be able to return home. Said jessica was sorry because she had hoped to outlive Donis but knows he is safe and her friend will take good care of him. Would like to go to [facility] because she will still have some privacy and her own space rather than the group setting found in the LTC facilities. Realizes the need to sell her home to provide a funding source for her placement to receive hospice service. She does not have any family and stated she could not ask her friends to take on the care she would need to support Hospice in her own home. A: 72 y.o. female admitted for failure to thrive and has now decided to seek comfort measures only rather than continue treatment for her cancer. P: CM Team will continue to provide support and assist with develpment of an acceptable discharge plan and hopefully admission to hospice service.
[2018-04-10] MEDS: Melatonin 3 MG TAB PO (20:30)
[2018-04-11] MEDS: Normal Saline Flush 10 ML SYR IVP ×3 (06:41→19:53)
[2018-04-11] MEDS: Magnesium Oxide 400 MG TAB PO (07:33)
[2018-04-11] MEDS: HYDROcodone 5/Acetaminophen 325 TAB PO ×3 (07:33→19:53)
[2018-04-11] MEDS: Polymyxin B/Trimethoprim Ophth Soln 10 ML BTL OU ×4 (07:34→19:55)
--- NOTE | 2018-04-11 09:52 | PDOC.CMPRO ---
- If Service Date Differs Date of service: 04/11/18 Time of Service: 09:52 Care Management Progress Note S/O: Natalie is lying in bed when CM visits today. She is engaged in conversation, is talkative, and makes good eye contact. Natalie reports that her pain is mostly controlled at the present but that she remains tired due to not sleeping well. Per MD, CADD pump for pain management will likely be ordered today. Adán Francis from [facility] phoned CM and would like to visit with Natalie today regarding possible placement at his home. A: 72 year old female admitted with failure to thrive, hypokalemia, weakness. P: Natalie will discharge when medically ready per MD. Discharge disposition undetermined at this time; SWBI at [facility] vs. SNF placement. Natalie will transport via private vehicle with a friend. CM will continue to offer support to patient and care team regarding discharge planning and disposition.
--- NOTE | 2018-04-11 10:00 | CMPROGNOTE_ITS ---
- If Service Date Differs Date of service: 04/11/18 Time of Service: 09:52 Care Management Progress Note S/O: Natalie is lying in bed when CM visits today. She is engaged in conversation, is talkative, and makes good eye contact. Natalie reports that her pain is mostly controlled at the present but that she remains tired due to not sleeping well. Per MD, CADD pump for pain management will likely be ordered today. Adán Francis from [facility] phoned CM and would like to visit with Natalie today regarding possible placement at his home. A: 72 year old female admitted with failure to thrive, hypokalemia, weakness. P: Natalie will discharge when medically ready per MD. Discharge disposition undetermined at this time; SWBI at [facility] vs. SNF placement. Natalie will transport via private vehicle with a friend. CM will continue to offer support to patient and care team regarding discharge planning and disposition.
--- NOTE | 2018-04-11 16:19 | CHAPLAIN ---
Natalie was finishing up a visit with Adán Francis and her friend Ana when I stopped in. Care Management is working on plans for Natalie to be admitted to [facility]'s home hospice program. Adán and Natalie appeared to thoroughly enjoy meeting each other. And after Adán left, Natalie said she feels much more relaxed knowing that if she can't go home, she could go to [facility]. He's just as nice as people said he would be, she said. Natalie continues to have visits and support from friends. She speaks daily with a childhood friend who lives in [place]. Natalie said she is feeling stronger and has put on some weight.
--- NOTE | 2018-04-11 19:14 | W.PM.PROGNOT ---
Date of Service Date of service: 04/11/18 Time of Service: 19:14 Assessment and Plan (1) Colon cancer metastasized to lung: Current visit: No Status: Acute She continues on comfort measures. As above we discussed different pain management options, we will continue with current pain management for cancer related pain, [place] TID scheduled and PRN IV morphine. I encouraged her not to hesitate to ask for additional medication if her pain worsens or she develops other symptoms. She still needs ongoing care due to weakness and deconditioning. (2) Conjunctivitis: Current visit: Yes Status: Acute Improving. She is on day #9 of antibiotic drops. Will complete 10 days. Offer warm compress for comfort. (3) DVT prophylaxis: Current visit: Yes Status: Acute Subcutaneous Lovenox. (4) Discharge planning issues: Current visit: Yes Status: Acute She is a DNR/DNI. 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 Subjective Patient reports: no new complaints, tolerating liquids well and tolerating a regular diet; denies diarrhea, nausea and shortness of breath Interval history since last seen: Continues to have some back pain. Discussed the option of a CAD pump, but she is a little hesitant to be on an IV all the time. The IV morphine does work, and she is happy with the current management. Exam Narrative Exam Narrative: General: appears frail and cachectic. Alert and oriented. Skin is pale. She is pleasant and cooperative, smiling Neuro: speech is clear and articulate, no focal deficits. HEENT: Sclera are non-icteric, conjunctiva are noninjected. Mucous membranes are moist. Respiratory: Her respirations are even and unlabored. Abdomen: thin, scaphoid, normoactive bowel sounds,not tender. Extremities: no clubbing, cyanosis or edema. Objective Objective Clinical Data: Vital Signs Temperature 37.0 C 04/08/18 15:48 Temperature Source Tympanic 04/08/18 15:48 Pulse 91 H 04/08/18 15:48 Pulse Rhythm Regular 04/08/18 16:30 Pulse 86 03/31/18 18:50 Respiratory Rate 17 04/08/18 15:48 Respiratory Effort Non-Labored 04/11/18 16:14 Respiratory Depth Normal 04/11/18 16:14 Respiratory Pattern Normal 04/11/18 16:14 Blood Pressure 121/66 04/08/18 15:48 Blood Pressure Mean 94 03/31/18 18:01 Blood Pressure Position Supine 03/31/18 17:00 Pulse Oximetry 97 04/08/18 15:48 Oxygen Delivery Method Room Air 04/08/18 15:48 Oxygen Flow Rate 0 04/08/18 15:48 Pain Level 5 04/11/18 13:28 Comment 04/08/18 07:50 Intake & Output 04/10/18 04/11/18 04/11/18 23:59 11:59 23:59 Intake Total 480 / 480 370 / 370 501 / 501 Balance 480 / 480 370 / 370 501 / 501 Weight 42.8 kg Intake: IV Oral 480 / 480 360 / 360 490 / 490 Other: Urine Color Yellow Urine Appearance Clear Clear Urine Odor None Comment pt incontinent of large amounts. pt passed moderate urine into brief same was changed Stool Size Large Small Moderate Stool Characteristics Soft Soft Soft [place] Formed [place] Voiding Methods Diaper Diaper Incontinent Incontinent Laboratory Results WBC 8.09 k/cumm (4.4-10.8) 04/05/18 06:05 RBC 3.13 m/cumm (4.00-5.20) L 04/05/18 06:05 Hgb 10.5 g/dL (12.0-15.5) L 04/05/18 06:05 Hct 31.5 % (36.0-46.0) L 04/05/18 06:05 MCV 100.6 fL (80-95) H 04/05/18 06:05 MCH 33.5 pg (27.0-33.0) H 04/05/18 06:05 MCHC 33.3 g/dL (32.0-36.0) 04/05/18 06:05 RDW 15.8 % (11.7-14.6) H 04/05/18 06:05 Plt Count 235 x1000/uL (130-400) 04/05/18 06:05 MPV 11.2 fL (8.0-11.0) H 04/05/18 06:05 Immature Gran % 0.1 03/31/18 11:30 Neutrophils % 84.8 03/31/18 11:30 Lymphocytes % 6.6 03/31/18 11:30 Monocytes % 8.3 03/31/18 11:30 Eosinophils % 0.1 03/31/18 11:30 Basophils % 0.1 03/31/18 11:30 Absolute Neutrophils 8.20 k/cumm (1.2-6.7) H 03/31/18 11:30 Absolute Lymphocytes 0.64 k/cumm (1.2-3.4) L 03/31/18 11:30 Absolute Monocytes 0.80 k/cumm (0.11-0.7) H 03/31/18 11:30 Absolute Eosinophils 0.01 k/cumm (0.0-0.7) 03/31/18 11:30 Absolute Basophils 0.01 k/cumm (0.0-0.2) 03/31/18 11:30 Sodium 137 mmol/L (136-145) 04/02/18 07:05 Potassium 4.6 mmol/L (3.5-5.1) D 04/02/18 07:05 Chloride 104 mmol/L (98-107) 04/02/18 07:05 Carbon Dioxide 27.6 mmol/L (21.0-32.0) 04/02/18 07:05 Anion Gap 5.4 mmol/L (3-11) 04/02/18 07:05 BUN 13 mg/dL (7-18) 04/02/18 07:05 Creatinine 0.57 mg/dL (0.55-1.02) 04/02/18 07:05 Estimated GFR/1.73 m2 >= 60.00 (mL/min/1.73m2) 04/02/18 07:05 Glucose 125 mg/dL (70-100) H 04/02/18 07:05 Calcium 7.8 mg/dL (8.5-10.1) L 04/02/18 07:05 Magnesium 1.9 mg/dL (1.8-2.4) 04/02/18 07:05 Total Bilirubin 1.3 mg/dL (0.2-1.0) H 03/31/18 11:30 AST 47 U/L (15-37) H 03/31/18 11:30 ALT 22 U/L (12-78) 03/31/18 11:30 Alkaline Phosphatase 96 U/L (46-116) 03/31/18 11:30 Troponin I < 0.02 ng/mL (0.00-0.06) 03/31/18 11:30 Total Protein 7.2 g/dL (6.4-8.2) 03/31/18 11:30 Albumin 3.3 g/dL (3.4-5.0) L 03/31/18 11:30 TSH 2.37 uIU/mL (0.358-3.74) 04/01/18 06:48
[2018-04-11] MEDS: Melatonin 3 MG TAB PO (21:36)
[2018-04-12] MEDS: Normal Saline Flush 10 ML SYR IVP ×3 (01:16→04:13)
[2018-04-12] MEDS: Polymyxin B/Trimethoprim Ophth Soln 10 ML BTL OU ×2 (07:43→11:26)
[2018-04-12] MEDS: HYDROcodone 5/Acetaminophen 325 TAB PO ×2 (07:43→13:02)
[2018-04-12] MEDS: Magnesium Oxide 400 MG TAB PO (07:43)
--- NOTE | 2018-04-12 10:00 | RESPIRATORY ---
Patient breathing easy with zero distress noted
--- NOTE | 2018-04-12 11:47 | PDOC.CMPRO ---
- If Service Date Differs Date of service: 04/12/18 Time of Service: 11:47 Care Management Progress Note S/O: Natalie is lying in bed when CM visits today. She is engaged in conversation, is talkative, and makes good eye contact. Natalie met twice yesterday with Adán Francis from [facility] and reports that she would like to go there when he has bed availability. CM has asked Dr. Pink to discuss hospice with Natalie (if she has not already) as she would likely go to [facility] with hospice support and care. Discussion regarding intermediate steps for Natalie, as Adán is unable to offer Natalie a bed until 05/02/18. CM phoned Rogelio at [facility]& regarding a possibility of Natalie transferring to [facility] from [facility] and from there to [facility] on the . [facility] had been considering offering a bed but were not certain this was a possibility. CM will continue to follow up with [facility] and [facility] Francis. A: 72 year old female admitted with failure to thrive, hypokalemia, weakness. P: Natalie will discharge when medically ready per MD. Discharge disposition undetermined at this time; SWBI at [facility] vs. SNF placement prior to transition to hospice at [facility]. Natalie will transport via private vehicle with a friend. CM will continue to offer support to patient and care team regarding discharge planning and disposition.
--- NOTE | 2018-04-12 11:54 | CMPROGNOTE_ITS ---
- If Service Date Differs Date of service: 04/12/18 Time of Service: 11:47 Care Management Progress Note S/O: Natalie is lying in bed when CM visits today. She is engaged in conversation, is talkative, and makes good eye contact. Natalie met twice yesterday with Adán Francis from [facility] and reports that she would like to go there when he has bed availability. CM has asked Dr. Pink to discuss hospice with Natalie (if she has not already) as she would likely go to [facility] with hospice support and care. Discussion regarding intermediate steps for Natalie, as Ad[facility] is unable to offer Natalie a bed until 05/02/18. CM phoned Rogelio at [facility]& regarding a possibility of Natalie transferring to [facility] from [facility] and from there to [facility] on the . [facility] had been considering offering a bed but were not certain this was a possibility. CM will continue to follow up with [facility] and [facility] Francis. A: 72 year old female admitted with failure to thrive, hypokalemia, weakness. P: Natalie will discharge when medically ready per MD. Discharge disposition undetermined at this time; SWBI at [facility] vs. SNF placement prior to transition to hospice at [facility]. Natalie will transport via private vehicle with a friend. CM will continue to offer support to patient and care team regarding discharge planning and disposition.
--- NOTE | 2018-04-12 12:42 | W.PM.DS.N ---
Date of service: 04/12/18 Time of Service: 12:42 DS: Diagnosis Discharge Diagnosis (1) Colon cancer metastasized to lung: Status: Acute Discharge Plan Disposition Patient Disposition: [facility] SWING BED LEVEL 1 Condition: Improving Discharge Details Chief Complaint: GenMedical Reason For Visit: FAILURE TO THRIVE,HYPOKALEMIA,WEAKNESS,NONSUS VTAC Admit Date/Time: 03/31/18 16:22 Admit Provider: Harish Sidhu Attending Provider: Harish Sidhu Primary Care Provider: Hansel Casillas ED Provider: Fortino Pineda Hospital Course Hospital Course: CC: Weakness, failure to thrive, diarrhea HPI: Very pleasant but unfortunate 72 year old woman with a history of Colon cancer s/p resection, with lung metastasis, currently on oral chemotherapy with Xeloda, who presented to the emergency department with generalized weakness. Ms Lia Dunaway had reportedly been in bed for 5-6 days prior to her ED visit. She had attempted to get up out of bed 3 times and fell every time and had to pull herself back into bed. She was covered in feces and urine as she was unable to get to the bathroom. She had not had anything to eat or drink in several days. She was discovered by her friend who had gone to her house to check on her and found the door locked. At that time she was transported to the hospital by EMS. Work-up in the emergency department included labs that revealed hypokalemia in the setting of diarrhea, elevated BUN with dehydration. She was noted to have a run of nonsustained ventricular tachycardia captured on monitor where she was symptomatic with dizziness. She had an ECG which revealed Normal Sinus rhythm. Her chest x-ray revealed Posterior left chest mass with no infiltrate. She received IV fluids. Given that she has generalized weakness with failure to thrive and inability to ambulate as well as hypokalemia in the setting of Colon cancer with mets, she was admitted to the med/surg floor for further evaluation and management. She was seen by Dr. Pink, Palliative care, who discussed code status and goals of care with her. She chose comfort care. Hospital Course: (1) Colon cancer metastasized to lung: Continue on comfort measures, pain control for cancer related pain, and titrate as needed. (2) Conjunctivitis: Current visit: Yes Status: Acute Improving. She is on day #9 of antibiotic drops. Will complete 10 days. Offer warm compress for comfort. 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 Tentative scheduled for [facility] in [facility] on May 02. Home Meds and New Rx's Prescriptions: No Action multivitamin 1 EACH capsule 1 ea PO DAILY RF: 0 capecitabine 500 mg Tablet 2 - 3 tab PO DIRECTED RF: 0 Discharge Instructions Activity:: Current activity level Equipment/Supplies:: No Equipment Needed Diet:: As Tolerated Discharge Orders Discharge Orders: Discharge Order (Routine); Ordered 04/12/18 Ordered By: Harish Sidhu DS: Data Vitals/I&O Vitals and I&O: Vital Signs Temperature 37.0 C 04/08/18 15:48 Temperature Source Tympanic 04/08/18 15:48 Pulse 91 H 04/08/18 15:48 Pulse Rhythm Regular 04/08/18 16:30 Pulse 86 03/31/18 18:50 Respiratory Rate 17 04/08/18 15:48 Respiratory Effort Non-Labored 04/12/18 07:35 Respiratory Depth Normal 04/12/18 07:35 Respiratory Pattern Normal 04/12/18 07:35 Blood Pressure 121/66 04/08/18 15:48 Blood Pressure Mean 94 03/31/18 18:01 Blood Pressure Position Supine 03/31/18 17:00 Pulse Oximetry 97 04/08/18 15:48 Oxygen Delivery Method Room Air 04/08/18 15:48 Oxygen Flow Rate 0 04/08/18 15:48 Pain Level 3 04/12/18 08:43 Comment 04/08/18 07:50 Intake & Output 04/11/18 04/12/18 04/12/18 23:59 11:59 23:59 Intake Total 501 / 501 450 / 450 Balance 501 / 501 450 / 450 Intake: IV Oral 490 / 490 450 / 450 Other: Urine Color Yellow Yellow Urine Appearance Clear Clear Urine Odor None None Comment pt passed moderate urine into brief same was changed incontinent care and moisture barrier cream used Stool Size Moderate Moderate Stool Characteristics Soft Soft Formed Brown Brown Voiding Methods Diaper Diaper Diaper Incontinent Incontinent Incontinent
== END 2018-04-12 13:56 | disposition swing bed (61) | DRG 374 ==
LOC: ER 14:07 → ICU 16:27 → MS 19:52
PROVIDERS: Internal Medicine; Nurse Practitioner; Admitting Provider Internal Medicine; Emergency Provider Student in an Organized Health Care Education/Training Program; PCP General Practice; Visit Provider Internal Medicine
DX: C18.9 Malignant neoplasm of colon, unspecified (principal); E43 Unspecified severe protein-calorie malnutrition; C78.00 Secondary malignant neoplasm of unspecified lung; I47.2 Ventricular tachycardia; Z68.1 Body mass index [BMI] 19.9 or less, adult; R62.7 Adult failure to thrive; E87.6 Hypokalemia; R19.7 Diarrhea, unspecified; R53.1 Weakness; G89.3 Neoplasm related pain (acute) (chronic); E83.42 Hypomagnesemia; R79.89 Other specified abnormal findings of blood chemistry; Z51.5 Encounter for palliative care; Z79.899 Other long term (current) drug therapy; Z60.2 Problems related to living alone; H10.33 Unspecified acute conjunctivitis, bilateral; R15.9 Full incontinence of feces; R32 Unspecified urinary incontinence; Z66 Do not resuscitate; Z87.891 Personal history of nicotine dependence; Z90.49 Acquired absence of other specified parts of digestive tract; R29.6 Repeated falls; B35.1 Tinea unguium; L60.2 Onychogryphosis; L85.3 Xerosis cutis
CPT/HCPCS: 36415; 80048; 80053; 85027; 93005; 96361; 96365; 96366; 99222; 99231; 99232; 99238; 99285; J1650; 71045; 83735; 84443; 84484; 85025; 93010; J3475; J3480

== ENCOUNTER 2018-04-12 13:13 | Inpatient (IN) | payer MEDICARE, SELFPAY ==
--- NOTE | 2018-04-12 13:14 | W.PM.HP.N ---
Date of service: 04/12/18 Time of Service: 13:15 Assessment and Plan (1) Colon cancer metastasized to lung: Current visit: No Status: Chronic Continue on comfort measures, pain control for cancer related pain, and titrate as needed. (2) Conjunctivitis: Current visit: Yes Status: Acute Improving. Day #9 of antibiotic drops. Will complete 10 days. 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 Will transition to swing bed status today. Tentative scheduled for [facility] in [facility] on May 02. History of Present Illness Chief Complaint: Generalized Weakness Narrative: Very pleasant but unfortunate 72 year old woman with a history of Colon cancer s/p resection, with lung metastasis, currently on oral chemotherapy with Xeloda, who presented to the emergency department with generalized weakness. Ms Lia Dunaway had reportedly been in bed for 5-6 days prior to her ED visit. She had attempted to get up out of bed 3 times and fell every time and had to pull herself back into bed. She was covered in feces and urine as she was unable to get to the bathroom. She had not had anything to eat or drink in several days. She was discovered by her friend who had gone to her house to check on her and found the door locked. At that time she was transported to the hospital by EMS. Work-up in the emergency department included labs that revealed hypokalemia in the setting of diarrhea, elevated BUN with dehydration. She was noted to have a run of nonsustained ventricular tachycardia captured on monitor where she was symptomatic with dizziness. She had an ECG which revealed Normal Sinus rhythm. Her chest x-ray revealed Posterior left chest mass with no infiltrate. She received IV fluids. Given that she has generalized weakness with failure to thrive and inability to ambulate as well as hypokalemia in the setting of Colon cancer with mets, she was admitted to the med/surg floor for further evaluation and management. She was seen by Dr. Pink, Palliative care, who discussed code status and goals of care with her. She chose comfort care. Review of Systems Review of Systems All systems reviewed & are unremarkable except as noted in HPI and below Meds Home Medications Medication Instructions Recorded Confirmed Type multivitamin 1 ea PO DAILY 08/19/12 03/31/18 History capecitabine 2 - 3 tab PO DIRECTED 03/31/18 03/31/18 History Allergies Allergy/AdvReac Type Severity Reaction Status Date / Time aspirin AdvReac Intermediate Unverified 03/31/18 11:23 meperidine HCl [From Demerol] AdvReac Intermediate Nausea Unverified 03/31/18 11:23 oxaliplatim Allergy Severe Anaphylaxsi Uncoded 03/31/18 11:23 s
--- NOTE | 2018-04-12 13:18 | HPE_ITS ---
Date of service: 04/12/18 Time of Service: 13:15 Assessment and Plan (1) Colon cancer metastasized to lung: Current visit: No Status: Chronic Continue on comfort measures, pain control for cancer related pain, and titrate as needed. (2) Conjunctivitis: Current visit: Yes Status: Acute Improving. Day #9 of antibiotic drops. Will complete 10 days. (3) Advanced directives, counseling/discussion: Current visit: Yes Status: Acute DNR/DNI - on INTAKE ASSESSOR. Will transition to swing bed status today. Tentative scheduled for [facility] in [facility] on May 02. History of Present Illness Chief Complaint: Generalized Weakness Narrative: Very pleasant but unfortunate 72 year old woman with a history of Colon cancer s/p resection, with lung metastasis, currently on oral chemotherapy with Xeloda, who presented to the emergency department with generalized weakness. Ms Lia Dunaway had reportedly been in bed for 5-6 days prior to her ED visit. She had attempted to get up out of bed 3 times and fell every time and had to pull herself back into bed. She was covered in feces and urine as she was unable to get to the bathroom. She had not had anything to eat or drink in several days. She was discovered by her friend who had gone to her house to check on her and found the door locked. At that time she was transported to the hospital by EMS. Work-up in the emergency department included labs that revealed hypokalemia in the setting of diarrhea, elevated BUN with dehydration. She was noted to have a run of nonsustained ventricular tachycardia captured on monitor where she was symptomatic with dizziness. She had an ECG which revealed Normal Sinus rhythm. Her chest x-ray revealed Posterior left chest mass with no infiltrate. She received IV fluids. Given that she has generalized weakness with failure to thrive and inability to ambulate as well as hypokalemia in the setting of Colon cancer with mets, she was admitted to the med/surg floor for further evaluation and management. She was seen by Dr. Pink, Palliative care, who discussed code status and goals of care with her. She chose comfort care. Review of Systems Review of Systems All systems reviewed & are unremarkable except as noted in HPI and below Meds Home Medications Medication Instructions Recorded Confirmed Type multivitamin 1 ea PO DAILY 08/19/12 03/31/18 History capecitabine 2 - 3 tab PO DIRECTED 03/31/18 03/31/18 History Allergies Allergy/AdvReac Type Severity Reaction Status Date / Time aspirin AdvReac Intermediate Unverified 03/31/18 11:23 meperidine HCl [From Demerol] AdvReac Intermediate Nausea Unverified 03/31/18 11 :23 oxaliplatim Allergy Severe Anaphylaxsi Uncoded 03/31/18 11:23 s
--- NOTE | 2018-04-12 13:56 | CMPROGNOTE_ITS ---
- If Service Date Differs Date of service: 04/12/18 Time of Service: 13:56 Care Management Progress Note Addendum entered and electronically signed by Missy Lizama 04/12/18 13 :54: Natalie will transfer to SWBI status today at [facility]. Plan for discharge remains to transfer to [facility] on 05/02/18. Swingbed paperwork has been reviewed with Natalie and signed. Original Note: S/O: Natalie is lying in bed when CM visits today. She is engaged in conversation, is talkative, and makes good eye contact. Natalie met twice yesterday with [facility] from [facility] and reports that she would like to go there when he has bed availability. CM has asked Dr. Pink to discuss hospice with Natalie (if she has not already) as she would likely go to [facility] with hospice support and care. Discussion regarding intermediate steps for Natalie, as [facility] is unable to offer Natalie a bed until 05/02/18. CM phoned Rogelio at [facility] regarding a possibility of Natalie transferring to [facility] from [facility] and from there to [facility] on the . [facility] had been considering offering a bed but were not certain this was a possibility. CM will continue to follow up with [facility] and [facility]. A: 72 year old female admitted with failure to thrive, hypokalemia, weakness. P: Natalie will discharge when medically ready per MD. Discharge disposition undetermined at this time; SWBI at [facility] vs. SNF placement prior to transition to hospice at [facility]. Natalie will transport via private vehicle with a friend. CM will continue to offer support to patient and care team regarding discharge planning and disposition.
--- NOTE | 2018-04-12 13:56 | CM.SBPSYCH ---
- If Service Date Differs Date of service: 04/12/18 Time of Service: 13:56 SB Psychosocial/Act.Assessment - Hospital Admission Admission Date: 03/31/18 Admission From:: Home. Diagnosis:: Failure to thrive, hypokalemia, weakness. - Swing Bed Admission Swing Bed Admit Date:: 04/12/18 - Social Supports PREVIOUS FUNCTIONAL STATUS/SOCIAL/FAMILY SUPPORTS:: Magalis Escobar) resides alone in [place]. She states that she has no family locally and depends on her friends/neighbors for support. Natalie states that she has been fighting the cancer for 6 years, and I'm tired. - Prior to Admission Living Arrangements/Environment Prior to Admission:: Prior to admission, Natalie was residing alone in [place]. Her in 1998. - Education Highest Grade Completed:: MS [employer]. - Work History Employment Status:: Most recent paid employment was for [employer]. 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 - Community Community Supports/Involvement: Many friends and neighbors who are supportive. Two step sons who live in [place] whom she has been estranged from since her 's in 1998. No family locally. - Present Functional Status Physical Abilities:: WNL. Cognitive:: WNL. Communication:: WNL. Sensory Systems: WNL. Behavior:: WNL. - Medical History PAST MEDICAL HISTORY/PAST SURGICAL HISTORY:: Colon cancer metastasized to lung (Acute). History of herniated intervertebral disc (Acute). H/O dilation and curettage (Acute). 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 Discharge Plan:: Anticipate Natalie will discharge to [facility] in [place], [place] on 05/02/2018. Transportation TBD. Assessment: Natalie is thrilled that she will be on SWBI status at [facility] until her anticipated discharge to [place] on 05/02/2018. 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
--- NOTE | 2018-04-12 13:57 | CM.SWINGPC ---
- If Service Date Differs Date of service: 04/12/18 Time of Service: 13:57 Swingbed Plan of Care Plan of care: SWING BED PROGRAM ACTIVITIES/DISCHARGE PLAN OF CARE ACTIVITIES PLAN Date: 04/12/2018 Identified Need: SWB I status. 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 Intervention/Plan: Reviewed with patient and on file. Initials: TCS DISCHARGE PLAN Date: 04/12/2018 Identified Need: Transfer for end of life care on hospice. Intervention/Plan: Patient will discharge to [facility] in [place], [place] on 05/02/2018. Transportation TBD. Initials: TCS
--- NOTE | 2018-04-12 13:58 | PHARADMIT ---
Addendum entered by Josephine Flannery 05/01/18 13:40: BM x 2 on 04/30 (pt refused Relistor), no BM 05/01/18, refusing some Docusate, Senna,& Miralax doses Pain 5-7/10 [place] increased to 10mg/325mg per dose, Fentanyl patch increased to 100mcg, has MS IVP if needed as well refusing Nystatin S/S discharge planned for Wednesday 05/02 Original Note: Addendum entered by Jeremy Beck III 04/29/18 12:21: LARGE BM REMAIN ELUSIVE, MD MODI TRY RELISTOR BEFORE RESORTING TO SSE. VS-OK Labs-WNL No large BM yet Original Note: Addendum entered by Jeremy Beck III 04/28/18 16:36: VS-OK No Labs, Sill no BM MD concerned thatBMs repoted are small. Original Note: Addendum entered by Mary Jane Peralta 04/27/18 08:31: No VS or labs, plan is for discharge 05/02/18 to [facility] BM RECORDED TODAY NO MED CHANGES NOTED Original Note: Addendum entered by Jeremy Beck III 04/26/18 12:05: VS-OK No Labs, Pain:7/10 MD concerned about lack of BMs, nursing working on it. Original Note: Addendum entered by Oma Lynch 04/25/18 11:00: No VS or labs, pain- 4/10 fentanyl patch increased to 75 mcg docusate changed from PRN to scheduled senna ordered QHS plan is for discharge 05/02/18 to [facility] Original Note: Addendum entered by Mary Jane Peralta 04/24/18 10:29: PAIN 6/10, VS OK NO CHANGE IN FENTANYL PATCH YET plan is for discharge 05/02/18 to [facility] Original Note: Addendum entered by Mary Jane Peralta 04/23/18 09:51: Pain 7/10 vs ok MD may increase dose of fentanyl patch plan is for discharge 05/02/18 to [facility] Original Note: Addendum entered by Jeremy Beck III 04/22/18 12:03: No VS, Pain;7/10 BM today No med changes Continue PT & OT for strength training for discharge home on to [facility]. Original Note: Addendum entered by Jeremy Beck III 04/20/18 11:55: No VS, Pain 5/10 Last BM 04/19 Fentanyl Patch at 50mcg NOW. No NEW MED CHANGES Original Note: Addendum entered by Oma Lynch 04/19/18 12:04: BP-100/56 Temp-37.6 other VS okay no labs MD may increase fentanyl patch no med changes so far today Original Note: Addendum entered by Jeremy Beck III 04/18/18 14:23: No VS pain: 4/10 MD considering uping Fentanyl patch again. Last change 04/16 at 25mcg) No new MD notes Original Note: Addendum entered by Oma Lynch 04/17/18 11:56: BP-97/58 other VS okay, pain-6/10 hydrocodone/APAP increased to 4 times a day PRN morphone dose increased from 1-2 mg to 2-3 mg Q1H PRN may increase fentanyl patch again tomorrow depending on pain Original Note: Addendum entered by Oma Lynch 04/16/18 10:37: No VS or labs, pain- 6/10 discussion on in increasing fentanyl dose, no order changes yet plan is for discharge 05/02/18 to [facility] Original Note: Addendum entered by Oma yLnch 04/15/18 12:15: VS okay, no labs, pain- 5/10 no med changes plan is for discharge 05/02/18 to [facility] Original Note: Addendum entered by Jeremy Beck III 04/14/18 12:25: VS-OK Pain:0/10 No Labs Had BM today. Fentanyl Patch started yesterday. Noble[place] available prn Will be discharged on Hospice when ready. Original Note: Addendum entered by Mary Jane Peralta 04/13/18 15:52: PAIN 3-7/10, POLYTRIM EYE DROPS STOPPED, REFRESH EYE DROPS STARTED plan is for discharge 05/02/18 to [facility] Original Note: Pt. changed to swingbed 04/12/18 No VS or labs, pain- 5/10 talk of starting a fentanyl pt instead of a cadd, no orders yet plan is for discharge 05/02/18 to [facility] Female : 1945 Emr# [id number] 04/01/18 11:20 - Pharmacy Review by Jeremy Beck III Acct Num: [id number] : 1945 Patient Age: 72 Addendum entered by Oma Lynch 04/11/18 11:44: Pharmacy Note Subjective LAP WINDER, looking a little better per morning report Objective No VS, pain-4/10 no labs Assessment discussion of adding a CADD pump for pain management, but not ordered yet Plan pt may swing later this week, [facility] to see about possible placement at [facility] if funding can be figured out Original Note: Addendum entered by Jeremy Beck III 04/10/18 09:05: Pharmacy Note Subjective MD notes that even though patient is LAP WINDER, she is not ready to , too healthy at this time. Objective No VS, pain:310 no labs Having BMs Assessment Receiving [place] PO TID and bolus Morphine IV prn Plan CM working towards discharge. Patient must sell home before she will qualify for any assistance with her situation. Original Note: Addendum entered by Jeremy Beck III 04/09/18 11:09: Pharmacy Note Subjective Patient is now LAP WINDER, will by followed by Palliative Care. Objective No VS, Pain; 11/07 Assessment May start a pain med infusion instead of [place] & bolus Morphine. Lovenox dc'd Plan Possible discharge to SNF or Hospice if CM can manage it. Original Note: Addendum entered by Jeremy Beck III 04/08/18 15:49: Pharmacy Note Subjective Discussion of low dose Morphine CADD, Patient considering. Objective VS-OK pain:6 No Labs, Wgt-43.8 kg Had BM today Assessment Presently using [place] TID with Morphine IV prn. Plan May go to LAP WINDER on swing bed Original Note: Addendum entered by Mary Jane Peralta 04/07/18 15:54: Pharmacy Note Subjective CM working on placement of pt, may convert to swingbed Objective vs ok, no labs, pain 2-6 Assessment hydrocod/apap increased to TID, Plan follow for pain control and possible side effects form narcotics Original Note: Addendum entered by Jeremy Beck III 04/06/18 10:54: In morning meeting it was discussed that patient will be LAP WINDER soon, Not sure if [facility] will take patient back. Presently her pain med needs are being met with Oral [place] & Morphine IV VS-OK Pain:10 No Labs BM today. Original Note: Addendum entered by Jeremy Beck III 04/05/18 12:06: Pharmacy Note Subjective History of colon cancer with resection & metastasized to lung. Admitted for generalized weakness & dehydration. Experiencing pain but reluctant to use narcotics. Objective BP-98/57 HR-88 pain:12/07 H&H-10.5/31.5 Plts-235 Wgt-45kg Reg BMs Assessment [place] BID ANJUM may be increased to TID /QID. Plan CM note that patient has been refused by most local SNF's but awaiting [facility] reply. Original Note: Admission Pharmacy Clinical Review FAILURE to thrive, Hypokalemia,weakness, nonsustained V-tac Code Status DNR/DNI Current Weight Wgt- 41.1 kg Renally Cleared and Narrow Therapeutic Index Meds CrCl~ 41.84 mL/min Meds-OK QTc Value / Action Taken QTc-432 na BP Control, Fever BP- 100/61 Tmax-37.6C Electrolytes reviewed Na- 137 K+2.7 Mag-1.3 DVT Prophylaxis Lovenox Opiate Usage / Scheduled Bowel Regimen Ordered Yes Yes Plt/SCr for Heparin / Enoxaparin Plts-262 SCr-0.79 INR for Warfarin NA H/H stable, WBC/Bands H&H- 12.3/34.9 WBC-11.00 Antibiotic appropriateness none Cultures and Sensitivities none Surgical ABX d/c within 24 hr NA DM control / Insulin Dosing BG-141 Heart Failure (Check EF%) (FERNY's, B-Block, Diuretics) none IV to PO Switch No Home Meds Reviewed Yes Home Meds Not Ordered Capecitabine tabs, M-Vites Comments
--- NOTE | 2018-04-12 14:02 | CMSCP_ITS ---
- If Service Date Differs Date of service: 04/12/18 Time of Service: 13:57 Swingbed Plan of Care Plan of care: SWING BED PROGRAM ACTIVITIES/DISCHARGE PLAN OF CARE ACTIVITIES PLAN Date: 04/12/2018 Identified Need: SWB I status. 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 Intervention/Plan: Reviewed with patient and on file. Initials: TCS DISCHARGE PLAN Date: 04/12/2018 Identified Need: Transfer for end of life care on hospice. Intervention/Plan: Patient will discharge to [facility] in [place], [place] on 05/02/2018. Transportation TBD. Initials: TCS
--- NOTE | 2018-04-12 14:56 | W.PALPGNOTE ---
Date of service: 04/12/18 Assessment and Plan (1) Goals of care, counseling/discussion: Current visit: Yes Status: Acute Feels comfortable with plan. Very happy that [facility] can allow her to stay here on SW1. She is interested in working with PT on transfers for safety when she goes to [facility]. Much more at peace than last visit. Explained that deciding to sell her house was very hard. She has lived there longer than any other home (19 years). Once she made the decision, however, she felt a burden lessen. (2) Colon cancer metastasized to lung: Current visit: Yes Status: Chronic Will be admitted to hospice on 05/02, soon after she arrives at [facility]. Plan is for her to be transported by private car as of this time. If she weakens dramatically, may need ambulance but doubt this. Note that ambulance would be under medicare, as her hospice admission will take place once she arrives at [facility]. (3) Malnutrition: Current visit: Yes Status: Chronic Doing much better. Eating well here. Wasn't taking care of herself at home. Note BMI is still underweight at 16.1. Subjective Patient reports: feels better, pain is less and tolerating a regular diet Interval history since last seen: Changed to swing bed level of care today. Still needs PT to help with strength training for transfers. All set to go to [facility] on WednesdayMay 02. Later that same day she will be admitted to hospice. I spoke with Adán today and he is happy she is moving into his community longterm. She was sitting up in bed, eating nuts and raisins. She had some color in her cheeks. Usually she is quite pale. She appeared less anxious. She says she is now accepting that she cannot return home. She loved meeting [employer] and thinks she will be very comfortable at his home. Her only regret is that it is in [facility] so she cannot participate in [facility] work. I told her I'm sure that the team will still let her participate in some way. Exam Narrative Exam Narrative: Sitting in her bed, looks better, more relaxed, not as pale and escalera. VS reviewed. Eyes: anicteric, non-injected HEENT: lips somewhat chapped, no oral lesions Lungs: CTAB, no increased WOB Heart: regular, no murmur noted Abd soft, NT, ND, + BS wnl Ext: no edema, +2 DP and PT pulses LYmph: unable to appreciate any lymphadenopathy in groin, axilla or neck Psych: not as anxious, not as fidgety, good eye contact Objective Objective Clinical Data: Intake & Output 04/11/18 04/12/18 04/12/18 23:59 11:59 23:59 Weight 94 lb 5.73 oz
--- NOTE | 2018-04-12 15:08 | PCPN_ITS ---
Date of service: 04/12/18 Assessment and Plan (1) Goals of care, counseling/discussion: Current visit: Yes Status: Acute Feels comfortable with plan. Very happy that [facility] can allow her to stay here on SW1. She is interested in working with PT on transfers for safety when she goes to [facility]. Much more at peace than last visit. Explained that deciding to sell her house was very hard. She has lived there longer than any other home (19 years). Once she made the decision, however, she felt a burden lessen. (2) Colon cancer metastasized to lung: Current visit: Yes Status: Chronic Will be admitted to hospice on 05/02, soon after she arrives at [facility]. Plan is for her to be transported by private car as of this time. If she weakens dramatically, may need ambulance but doubt this. Note that ambulance would be under medicare, as her hospice admission will take place once she arrives at [facility]. (3) Malnutrition: Current visit: Yes Status: Chronic Doing much better. Eating well here. Wasn't taking care of herself at home. Note BMI is still underweight at 16.1. Subjective Patient reports: feels better, pain is less and tolerating a regular diet Interval history since last seen: Changed to swing bed level of care today. Still needs PT to help with strength training for transfers. All set to go to [email or web address] on WednesdayMay 02. Later that same day she will be admitted to hospice. I spoke with Adán today and he is happy she is moving into his community [facility]. She was sitting up in bed, eating nuts and raisins. She had some color in her cheeks. Usually she is quite pale. She appeared less anxious. She says she is now accepting that she cannot return home. She loved meeting [employer] and thinks she will be very comfortable at his home. Her only regret is that it is in [facility] so she cannot participate in [facility] [employer] work. I told her I'm sure that the team will still let her participate in some way. Exam Narrative Exam Narrative: Sitting in her bed, looks better, more relaxed, not as pale and escalera. VS reviewed. Eyes: anicteric, non-injected HEENT: lips somewhat chapped, no oral lesions Lungs: CTAB, no increased WOB Heart: regular, no murmur noted Abd soft, NT, ND, + BS wnl Ext: no edema, +2 DP and PT pulses LYmph: unable to appreciate any lymphadenopathy in groin, axilla or neck Psych: not as anxious, not as fidgety, good eye contact Objective Objective Clinical Data: Intake & Output 04/11/18 04/12/18 04/12/18 23:59 11:59 23:59 Weight 94 lb 5.73 oz
[2018-04-12] MEDS: Polymyxin B/Trimethoprim Ophth Soln 10 ML BTL OU ×2 (17:44→19:37)
[2018-04-12] MEDS: Normal Saline Flush 10 ML SYR IVP ×3 (17:44→21:45)
[2018-04-12] MEDS: HYDROcodone 5/Acetaminophen 325 TAB PO (19:32)
--- NOTE | 2018-04-12 21:03 | W.PALPGNOTE ---
Date of service: 04/05/18 Assessment and Plan (1) Goals of care, counseling/discussion: Current visit: Yes Status: Acute Natalie recognizes that she cannot return home. Friend Ana reports house is uninhabitable. Natalie has been hoarding belongings, per friends. Care management has looked into [facility] and the [facility]. Both declined to take her, possibly for financial reasons. (She only has medicare). She knows she must sell her home no matter what. Interested in exploring [facility] and nursing homes closer to [facility]. If she stays locally, interested in hospice. Explained may not be possible in SNF but would be at [facility]. (2) Malnutrition: Current visit: Yes Status: Chronic eating better up to 50% of her meals has not eaten anything to speak of for a week prior to admission (3) Generalized weakness: Current visit: No Status: Acute getting oob to the chair was a challenge Natalie was unaware of how weak she'd become encouraged her to work with PT and OT she has been reluctant to do so (4) Colon cancer metastasized to lung: Current visit: Yes Status: Chronic hospice eligible hopefully, when she is discharged from [facility], she will be able to transition to hospice, no matter where she ends up living she would benefit from the wrap-around services of the hospice team Subjective Patient reports: feels better, still having pain, pain is less and other (incontinent of urine) Interval history since last seen: Natalie reports that the nurses helped her get OOB to the chair. She ate some of her breakfast there. She is eating at most about 50% of her meals. She said she was very thankful for the nurses who bathed her. She was covered in feces from being too weak to get to the bathroom at home. Fell several times there. She is very worried about where she will go from the hospital. She knows she cannot care for herself. All of her friends are too old to take care of her. She has no family who can do this. She has acreed to take vicodin in a scheduled manner, and morphine for break-through pain. She is sleeping better since doing this. She says she now understands that it was her pain that was keeping her awake. She also admits to having a lot of ANXIETY. Trying to adjust to all the rapid changes in her life. Exam Narrative Exam Narrative: Very frail, chronically ill, cachexic VS reviewed. Chronically tachy. Eyes: conjunctiva pale HEENT: lips chapped, MM dry but not parched Neck: no LAD, no JVD Lungs CTAB Heart: tachycardic, regular, no murmur Abd: cachectic, well-healed mid-line scar, + bs wnl Ext: warm, toes have been cut and cared for recently by Dr. Tomlinson psych: very fidgety, psychomotor agitation, signs of anxiety skin: no rashes or breakdown, pallor + Objective Objective Clinical Data: Vital Signs Pulse Rhythm Regular 04/12/18 16:28 Respiratory Effort Non-Labored 04/12/18 16:28 Respiratory Depth Normal 04/12/18 16:28 Respiratory Pattern Normal 04/12/18 16:28 Pain Level 6 04/12/18 18:02 Intake & Output 04/11/18 04/12/18 04/12/18 23:59 11:59 23:59 Intake Total 240 / 240 Balance 240 / 240 Weight 94 lb 5.73 oz Intake: Oral 240 / 240 Other: Urine Appearance Clear Stool Size Small Stool Characteristics Soft Voiding Methods Diaper Incontinent
--- NOTE | 2018-04-12 21:15 | PCPN_ITS ---
Date of service: 04/05/18 Assessment and Plan (1) Goals of care, counseling/discussion: Current visit: Yes Status: Acute Natalie recognizes that she cannot return home. Friend Ana reports house is uninhabitable. Natalie has been hoarding belongings, per friends. Care management has looked into [facility] and the [facility]. Both declined to take her, possibly for financial reasons. (She only has medicare). She knows she must sell her home no matter what. Interested in exploring [facility] and nursing homes closer to [facility]. If she stays locally, interested in hospice. Explained may not be possible in SNF but would be at [facility]. (2) Malnutrition: Current visit: Yes Status: Chronic eating better up to 50% of her meals has not eaten anything to speak of for a week prior to admission (3) Generalized weakness: Current visit: No Status: Acute getting oob to the chair was a challenge Natalie was unaware of how weak she'd become encouraged her to work with PT and OT she has been reluctant to do so (4) Colon cancer metastasized to lung: Current visit: Yes Status: Chronic hospice eligible hopefully, when she is discharged from [facility], she will be able to transition to hospice, no matter where she ends up living she would benefit from the wrap-around services of the hospice team Subjective Patient reports: feels better, still having pain, pain is less and other ( incontinent of urine) Interval history since last seen: Natalie reports that the nurses helped her get OOB to the chair. She ate some of her breakfast there. She is eating at most about 50% of her meals. She said she was very thankful for the nurses who bathed her. She was covered in feces from being too weak to get to the bathroom at home. Fell several times there. She is very worried about where she will go from the hospital. She knows she cannot care for herself. All of her friends are too old to take care of her. She has no family who can do this. She has acreed to take vicodin in a scheduled manner, and morphine for break- through pain. She is sleeping better since doing this. She says she now understands that it was her pain that was keeping her awake. She also admits to having a lot of ANXIETY. Trying to adjust to all the rapid changes in her life. Exam Narrative Exam Narrative: Very frail, chronically ill, cachexic VS reviewed. Chronically tachy. Eyes: conjunctiva pale HEENT: lips chapped, MM dry but not parched Neck: no LAD, no JVD Lungs CTAB Heart: tachycardic, regular, no murmur Abd: cachectic, well-healed mid-line scar, + bs wnl Ext: warm, toes have been cut and cared for recently by Dr. Tomlinson psych: very fidgety, psychomotor agitation, signs of anxiety skin: no rashes or breakdown, pallor + Objective Objective Clinical Data: Vital Signs Pulse Rhythm Regular 04/12/18 16:28 Respiratory Effort Non-Labored 04/12/18 16:28 Respiratory Depth Normal 04/12/18 16:28 Respiratory Pattern Normal 04/12/18 16:28 Pain Level 6 04/12/18 18:02 Intake & Output 04/11/18 04/12/18 04/12/18 23:59 11:59 23:59 Intake Total 240 / 240 Balance 240 / 240 Weight 94 lb 5.73 oz Intake: Oral 240 / 240 Other: Urine Appearance Clear Stool Size Small Stool Characteristics Soft Voiding Methods Diaper Incontinent
[2018-04-12] MEDS: Melatonin 3 MG TAB PO (21:45)
[2018-04-13] MEDS: Normal Saline Flush 10 ML SYR IVP ×5 (01:50→22:31)
[2018-04-13] MEDS: Magnesium Oxide 400 MG TAB PO (07:45)
[2018-04-13] MEDS: HYDROcodone 5/Acetaminophen 325 TAB PO ×3 (07:46→20:03)
[2018-04-13] MEDS: Polymyxin B/Trimethoprim Ophth Soln 10 ML BTL OU ×2 (07:46→12:30)
[2018-04-13] MEDS: fentaNYL 12 MCG PATCH TD (13:38)
--- NOTE | 2018-04-13 21:22 | W.PALPGNOTE ---
Date of service: 04/07/18 Assessment and Plan (1) Advanced directives, counseling/discussion: Current visit: No Status: Acute Signed her COLST form. 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 What Dr. Milan offered at her last apt in January would have been very tough on her, and he did not recommend it. Will go home on hospice at discharge. Pain well controlled on current doses of vicodin with prn morphine. (3) Discharge planning issues: Current visit: No Status: Acute looking at Adán Francis's place in [place] Care management has run her case by several local SNF and no one has accepted her due to uncertainty about her finances. Her friend Ana did get access to her accounts. Will bring financial info to . (4) Failure to thrive: Current visit: No Status: Acute Doing better now that she has people helping take care of her. Unable to care for herself at home. Will need to have ongoing care for the rest of her life, which is measured in weeks to months. Subjective Patient reports: no new complaints and feels better Interval history since last seen: Natalie's friend Ana was with her during my visit. Natalie is coming around to the idea that she cannot return home. Ana has arranged for Natalie's cat to be adopted. Natalie is understandably anxious. Thinking more about [facility] in [place]. Meeting with babbitt spinner soon. Has new clothes that her friend Jessa brought her. Feels well taken care of by friends and nurses. Just trying to understand how she got to where she is. She said I was just hoping that I would in my sleep and would never have to deal with being sick. Exam Narrative Exam Narrative: VS Frail, underweight, pale, fidgety HEENT conjunctivae pale, anicteric Neck no LAD Lungs ctab Heart regular, no murmur, S1S2 normal Abd slender, well healed scar, reduced BS, ? mass LLQ vs stool Ext trace edema, onychomycosis of nails neuro a and o x 3 psychiatric anxious, but less so than she was last visit, and on admission Objective Objective Clinical Data: Vital Signs Pulse Rhythm Regular 04/13/18 01:35 Respiratory Effort Non-Labored 04/13/18 17:23 Respiratory Depth Normal 04/13/18 17:23 Respiratory Pattern Normal 04/13/18 17:23 Pain Level 7 04/13/18 13:38 Intake & Output 04/12/18 04/13/18 04/13/18 23:59 11:59 23:59 Intake Total 251 / 251 490 / 490 610 / 610 Balance 251 / 251 490 / 490 610 / 610 Weight 94 lb 5.73 oz Intake: IV Oral 240 / 240 490 / 490 600 / 600 Other: Urine Color [place] Straw Urine Appearance Clear Clear Urine Odor Normal Comment Large amount of inc urine inc w stool Stool Size Small Moderate Moderate Stool Characteristics Soft Soft Soft Brown Voiding Methods Diaper Diaper Diaper Incontinent Incontinent Incontinent
--- NOTE | 2018-04-13 21:32 | PCPN_ITS ---
Date of service: 04/07/18 Assessment and Plan (1) Advanced directives, counseling/discussion: Current visit: No Status: Acute Signed her COLST form. 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 What Dr. Milan offered at her last apt in January would have been very tough on her, and he did not recommend it. Will go home on hospice at discharge. Pain well controlled on current doses of vicodin with prn morphine. (3) Discharge planning issues: Current visit: No Status: Acute looking at Ad[facility] Francis's place in [place] Care management has run her case by several local SNF and no one has accepted her due to uncertainty about her finances. Her friend Ana did get access to her accounts. Will bring financial info to . (4) Failure to thrive: Current visit: No Status: Acute Doing better now that she has people helping take care of her. Unable to care for herself at home. Will need to have ongoing care for the rest of her life, which is measured in weeks to months. Subjective Patient reports: no new complaints and feels better Interval history since last seen: Natalie's friend Ana was with her during my visit. Natalie is coming around to the idea that she cannot return home. Ana has arranged for Natalie's cat to be adopted. Natalie is understandably anxious. Thinking more about community skilled nursing in [place]. Meeting with alcohol and drug counselor soon. Has new clothes that her friend Jessa brought her. Feels well taken care of by friends and nurses. Just trying to understand how she got to where she is. She said I was just hoping that I would in my sleep and would never have to deal with being sick. Exam Narrative Exam Narrative: VS Frail, underweight, pale, fidgety HEENT conjunctivae pale, anicteric Neck no LAD Lungs ctab Heart regular, no murmur, S1S2 normal Abd slender, well healed scar, reduced BS, ? mass LLQ vs stool Ext trace edema, onychomycosis of nails neuro a and o x 3 psychiatric anxious, but less so than she was last visit, and on admission Objective Objective Clinical Data: Vital Signs Pulse Rhythm Regular 04/13/18 01:35 Respiratory Effort Non-Labored 04/13/18 17:23 Respiratory Depth Normal 04/13/18 17:23 Respiratory Pattern Normal 04/13/18 17:23 Pain Level 7 04/13/18 13:38 Intake & Output 04/12/18 04/13/18 04/13/18 23:59 11:59 23:59 Intake Total 251 / 251 490 / 490 610 / 610 Balance 251 / 251 490 / 490 610 / 610 Weight 94 lb 5.73 oz Intake: IV Oral 240 / 240 490 / 490 600 / 600 Other: Urine Color [place] Straw Urine Appearance Clear Clear Urine Odor Normal Comment Large amount of inc urine inc w stool Stool Size Small Moderate Moderate Stool Characteristics Soft Soft Soft Brown Voiding Methods Diaper Diaper Diaper Incontinent Incontinent Incontinent
[2018-04-13] MEDS: Melatonin 3 MG TAB PO (22:05)
[2018-04-13] MEDS: LORazepam 2 MG/ML VIAL IV/SC (22:28)
[2018-04-14] MEDS: HYDROcodone 5/Acetaminophen 325 TAB PO ×3 (03:38→18:48)
[2018-04-14 07:50] VITALS: BP 100/62; PULSE 84; RESP 14; TEMP 35.9; O2SAT 98
[2018-04-14] MEDS: Magnesium Oxide 400 MG TAB PO (07:53)
--- NOTE | 2018-04-14 16:30 | PDOC.CMACT ---
Care Management Activity Note Magalis has quickly become well regarded by the [facility] staff; she is pleasant in interaction and a pleasure to converse with. She enjoys visiting with friends and staff and telling stories in great detail. She will remain at [facility] until discharging to [facility].
--- NOTE | 2018-04-14 16:31 | CMACTNOTE_ITS ---
Care Management Activity Note Magalis has quickly become well regarded by the [facility] staff; she is pleasant in interaction and a pleasure to converse with. She enjoys visiting with friends and staff and telling stories in great detail. She will remain at [facility] until discharging to [facility].
[2018-04-14] MEDS: fentaNYL 12 MCG PATCH TD (18:48)
[2018-04-14] MEDS: Normal Saline Flush 10 ML SYR IVP (20:46)
[2018-04-14] MEDS: Melatonin 3 MG TAB PO (22:10)
[2018-04-15] MEDS: HYDROcodone 5/Acetaminophen 325 TAB PO ×4 (02:12→21:56)
[2018-04-15 07:35] VITALS: BP 115/66; PULSE 86; RESP 20; TEMP 36.8; O2SAT 97
[2018-04-15] MEDS: Magnesium Oxide 400 MG TAB PO (08:25)
[2018-04-15] MEDS: Acetaminophen 325 MG TAB PO ×2 (08:25→16:12)
--- NOTE | 2018-04-15 13:24 | PDOC.CMPRO ---
- If Service Date Differs Date of service: 04/15/18 Time of Service: 13:24 Care Management Progress Note Natalie is lying in bed when CM visits this afternoon. She reports that she is tired but in good spirits with her pain well controlled at the present time. Natalie's friend, Jessa, brought her a tablet with poetry uploaded and Natalie is enjoying this. Natalie has many friends who visit and enjoys visiting with staff. Natalie reports that she is saddened by the fact that she will be selling her home but has friends who will be cleaning it out for her and saving items that she wished to bring to [facility]'s home in April. Natalie reports that she is happy that she has a plan but that it's also difficult due to the 'finality' of said plan. Natalie will transfer to [facility] in [place] on 05/02/18. Transportation will be determined. will continue to offer support to patient and care team regarding discharge planning and disposition. Corinne Perez; [phone] José Miguel SON [phone]
--- NOTE | 2018-04-15 13:28 | CMPROGNOTE_ITS ---
- If Service Date Differs Date of service: 04/15/18 Time of Service: 13:24 Care Management Progress Note Natalie is lying in bed when CM visits this afternoon. She reports that she is tired but in good spirits with her pain well controlled at the present time. Natalie's friend, Jessa, brought her a tablet with poetry uploaded and Natalie is enjoying this. Natalie has many friends who visit and enjoys visiting with staff. Natalie reports that she is saddened by the fact that she will be selling her home but has friends who will be cleaning it out for her and saving items that she wished to bring to [facility]'s home in April. Natalie reports that she is happy that she has a plan but that it's also difficult due to the 'finality' of said plan. Natalie will transfer to [facility] in [place] on 05/02/18. Transportation will be determined. will continue to offer support to patient and care team regarding discharge planning and disposition. Corinne Perez; [phone] José Miguel SON [phone]
[2018-04-15] MEDS: Normal Saline Flush 10 ML SYR IVP ×2 (19:12→21:56)
[2018-04-15] MEDS: Melatonin 3 MG TAB PO (21:56)
[2018-04-16] MEDS: Normal Saline Flush 10 ML SYR IVP ×6 (00:37→23:12)
[2018-04-16] MEDS: HYDROcodone 5/Acetaminophen 325 TAB PO ×2 (05:05→17:17)
[2018-04-16] MEDS: Magnesium Oxide 400 MG TAB PO (07:43)
[2018-04-16] MEDS: Nystatin 500000 UNITS/5 ML SUSP 5ML CUP PO ×2 (13:06→19:27)
[2018-04-16] MEDS: fentaNYL 25 MCG PATCH TD (13:06)
[2018-04-16] MEDS: Melatonin 3 MG TAB PO (21:06)
[2018-04-17 04:00] VITALS: BP 97/58; PULSE 81; RESP 17; TEMP 37.4; O2SAT 97
[2018-04-17] MEDS: Normal Saline Flush 10 ML SYR IVP ×4 (04:03→21:34)
[2018-04-17] MEDS: Nystatin 500000 UNITS/5 ML SUSP 5ML CUP PO ×3 (07:38→19:12)
[2018-04-17] MEDS: Magnesium Oxide 400 MG TAB PO (07:38)
[2018-04-17] MEDS: HYDROcodone 5/Acetaminophen 325 TAB PO ×2 (08:35→17:26)
[2018-04-17] MEDS: Ondansetron 4 MG/2 ML VIAL IVP (21:35)
[2018-04-17] MEDS: Melatonin 3 MG TAB PO (22:22)
[2018-04-18] MEDS: Normal Saline Flush 10 ML SYR IVP ×5 (02:02→21:19)
[2018-04-18] MEDS: Magnesium Oxide 400 MG TAB PO (07:56)
[2018-04-18] MEDS: Nystatin 500000 UNITS/5 ML SUSP 5ML CUP PO ×3 (07:56→20:11)
[2018-04-18] MEDS: HYDROcodone 5/Acetaminophen 325 TAB PO ×2 (08:04→18:56)
--- NOTE | 2018-04-18 14:50 | CMACTNOTE_ITS ---
- If Service Date Differs Date of service: 04/18/18 Time of Service: 14:40 Care Management Activity Note Natalie is lying in bed when CM visits this afternoon. She has just received a delivery of chocolates from a friend and is in good spirits. Natalie has recently taken morphine for pain and has a fentanyl patch in place. Natalie reports that her pain is a 5/10, down from 7/10 and there is discussion that her dosage will be increased for comfort. CM spoke with Adán Francis today regarding Natalie's financials in anticipation of her transfer to his home on 05/02. Natalie reports that she has no information regarding her financials and that her friend, Ana, has control of such. With Natalie's permission, CM phoned and left for Ana. CM will continue to follow. Natalie will transfer to [facility] in [place] on 05/02/18. Transportation will be determined. CM will continue to offer support to patient and care team regarding discharge planning and disposition. Friend Ana; [phone] José Miguel SON [phone]
--- NOTE | 2018-04-18 18:25 | NUR.NOTE ---
pt had hygienic needs met with total assistance, small red bruise noted to the right mid back. barrier cream applied to area after cleaning with sponge.
[2018-04-18] MEDS: Polyethylene Glycol 3350 17 GM PACKET PO (18:56)
[2018-04-18] MEDS: Melatonin 3 MG TAB PO (21:19)
[2018-04-19] MEDS: Normal Saline Flush 10 ML SYR IVP ×4 (01:18→21:25)
[2018-04-19 07:20] VITALS: BP 100/56; PULSE 78; RESP 18; TEMP 37.6; O2SAT 98
[2018-04-19] MEDS: Magnesium Oxide 400 MG TAB PO (07:34)
[2018-04-19] MEDS: Nystatin 500000 UNITS/5 ML SUSP 5ML CUP PO ×3 (07:34→20:52)
[2018-04-19] MEDS: HYDROcodone 5/Acetaminophen 325 TAB PO ×3 (07:42→21:26)
--- NOTE | 2018-04-19 10:12 | NUR.NOTE ---
Nursing Note: Patient said she was going to let me put her in the shower today, went in at 730 to ask her when she wanted to shower she told me 930-1000am. I went in at 1000am and she said she did not want to shower today she felt to weak today.
[2018-04-19] MEDS: fentaNYL 50 MCG PATCH TD (13:27)
--- NOTE | 2018-04-19 14:07 | PDOC.CMPRO ---
- If Service Date Differs Date of service: 04/19/18 Time of Service: 14:07 Care Management Progress Note Natalie is lying in bed with her friend Ana at bedside, when CM visits today. She is in good spirits and is talkative. Per CM request, Ana has brought in a copy of Natalie's bank statement for clarification on her financial picture. Adán Francis has requested payment in the form of a check on a weekly basis. Natalie's friend, Jessa, will be celebrating Thanksgiving with her at [facility] on . Natalie will transfer to [facility] in [place] on 05/02/18. Transportation will be determined. CM will continue to offer support to patient and care team regarding discharge planning and disposition. Friend Ana; [phone] José Miguel SON [phone]
--- NOTE | 2018-04-19 14:14 | CMPROGNOTE_ITS ---
- If Service Date Differs Date of service: 04/19/18 Time of Service: 14:07 Care Management Progress Note Natalie is lying in bed with her friend Ana at bedside, when CM visits today. She is in good spirits and is talkative. Per CM request, Ana has brought in a copy of Natalie's bank statement for clarification on her financial picture. Adán Francis has requested payment in the form of a check on a weekly basis. Natalie's friend, Jessa, will be celebrating Thanksgiving with her at [facility] on . Natalie will transfer to [facility] in [place] on 05/02/18. Transportation will be determined. CM will continue to offer support to patient and care team regarding discharge planning and disposition. Friend Ana; [phone] José Miguel SON [phone]
--- NOTE | 2018-04-19 15:04 | CHAPLAIN ---
Natalie talked about dying today. She said that she spoke with her nurse, Cynthia Schilling RN, this morning about the fact that when she goes to [facility] home on 05/02, that she is going there to , even if it may take months. She said no one has yet stated that in a link way, and although she doesn't want to dwell on it she said she realizes she must think about it at time because than she can think about what she wants to do with this time. We talked about how universal the experience of dying is, yet we don't talk about it. Natalie continues to be supported by friends. She said Ana and other have begun to clean out her home, and Jessa Buck will be coming over on Thanksgiving to have dinner with Natalie.
[2018-04-19] MEDS: Docusate Sodium 100 MG CAP PO (15:35)
[2018-04-19] MEDS: Melatonin 3 MG TAB PO (21:26)
--- NOTE | 2018-04-20 09:49 | W.PALPGNOTE ---
Date of service: 04/20/18 Assessment and Plan (1) Generalized weakness: Current visit: No Status: Acute WILLINg to work with PT/OT to enable ease of transfers once living at [facility]. Plan remains that she will transfer there by private car on 05/02. Orders will be done prior to transfer. DR GORDON WILL BE DISCHARGING PATIENT as I WILL BE AWAY. She is covering hospice. (2) Discharge planning issues: Current visit: No Status: Acute Apparently, Natalie has enough money to cover at least a few months at [facility], which is private pay. IF SHE survives longer than her money, will need to go to SNF. APplying for Choices for Care/Medicaid currently, I believe--though form cannot be submitted until her house is on the market, I understand. (3) Goals of care, counseling/discussion: Current visit: Yes Status: Acute Wants to be comfortable. Already feeling much better. Eating more. Has more energy. Able to participate in self-care a bit. Subjective Patient reports: no new complaints, feels better, still having pain, pain is less and tolerating a regular diet Interval history since last seen: Natalie is feeling better. Wearing a 50 mcg fentanyl patch on right upper arm. Doesn't have much body fat to absorb, but she thinks it is helping. Still has flashes of pain in her LLQ and left leg/thigh. Reminded her to ask for liquid morphine at these times. Plan remains in place for her to transfer to [facility] on May 02. Appears she has enough money in the bank to pay for 2-3 months at his home. Ana, her elderly friend who found her so sick at home prior to her admission, has financial DPOA. Another friend, 15 years younger has her medical DPOA. She is beginning to think more and more about her . She says she's scared, but not terrified. Thinking a lot about her , Mariano, who suddenly of an acute [place] 20 years ago. She is interested in talking more about what to expect. I explained that she has improved overall since she was admitted to [facility]. She was quite malnourished on admission. She hadn't been able to make herself healthy meals for a while. She is eating well now. At first, she was consuming about 20-33% of her meals. Now, she's eating about 90%. She hasn't worked with PT/OT much yet. She wants to. Adán, her caregiver to be, wants her to be able to transfer on and off the commode/toilet, transfer in and out of bed, etc. Exam Const General: frail appearing and ill appearing Nutritional Appearance: underweight Orientation: alert, awake and oriented x3 HENMT Head: normocephalic and atraumatic Ears: hearing grossly normal bilaterally General nose exam: external nose normal and no nasal discharge Face and sinus: face symmetric Mouth: oral mucosae normal and moist mucous membranes Eyes Conjunctivae: conjunctivae normal Sclera: sclerae normal Resp Effort & Inspection: normal respiratory effort and able to speak in complete sentences Auscultation: clear to auscultation bilaterally Cardio Jugular venous pressure: no JVD Rate: regular rate Rhythm: regular rhythm Heart Sounds: S1 normal and S2 normal GI Inspection: scaphoid and scar Palpation: firm and tender Auscultation: normal bowel sounds Skin General skin exam: dry skin and pallor Hair: general thinning Neuro General: alert, awake and oriented x3 Cognition: normal cognition Speech: speech normal Sensory Exam: no sensory deficits noted Psych Appearance: grossly normal Mental Status: mental status grossly normal Speech and Movement: speech and movement normal and speech clear Mood: congruent mood Affect: normal affect and sad Attitude: cooperative Thought Process: normal Thought Content: normal Insight: insight good Judgment: judgment good Objective Objective Clinical Data: Vital Signs Temperature 99.7 F H 04/19/18 07:20 Temperature Source Tympanic 04/19/18 07:20 Pulse 78 04/19/18 07:20 Pulse Rhythm Regular 04/15/18 19:45 Respiratory Rate 18 04/19/18 07:20 Respiratory Effort 04/20/18 01:25 Respiratory Depth Normal 04/20/18 01:25 Respiratory Pattern Normal 04/20/18 01:25 Blood Pressure 100/56 L 04/19/18 07:20 Pulse Oximetry 98 04/19/18 07:20 Oxygen Delivery Method Room Air 04/19/18 07:20 Oxygen Flow Rate 0 04/19/18 07:20 Pain Level 5 04/19/18 19:35 Comment 04/17/18 04:00 Intake & Output 04/19/18 04/19/18 04/20/18 11:59 23:59 11:59 Intake Total 720 / 720 501 / 501 380 / 380 Output Total 250 / 250 Balance 470 / 470 501 / 501 380 / 380 Intake: IV Oral 720 / 720 490 / 490 380 / 380 Output: Urine 250 / 250 Other: Urine Color Yellow Urine Appearance Clear Urine Odor Normal Comment Checked paitent she was dry. brief is dry at this time Stool Size Small Stool Characteristics Soft Formed Voiding Methods Bedside Commode Diaper Incontinent
[2018-04-20] MEDS: Nystatin 500000 UNITS/5 ML SUSP 5ML CUP PO ×3 (09:58→19:17)
[2018-04-20] MEDS: HYDROcodone 5/Acetaminophen 325 TAB PO ×2 (09:58→16:38)
[2018-04-20] MEDS: Magnesium Oxide 400 MG TAB PO (09:58)
--- NOTE | 2018-04-20 10:00 | PCPN_ITS ---
Date of service: 04/20/18 Assessment and Plan (1) Generalized weakness: Current visit: No Status: Acute WILLINg to work with PT/OT to enable ease of transfers once living at [facility]. Plan remains that she will transfer there by private car on 05/02. Orders will be done prior to transfer. DR GORDON WILL BE DISCHARGING PATIENT as I WILL BE AWAY. She is covering hospice. (2) Discharge planning issues: Current visit: No Status: Acute Apparently, Natalie has enough money to cover at least a few months at [facility] , which is private pay. IF SHE survives longer than her money, will need to go to SNF. APplying for Choices for Care/Medicaid currently, I believe--though form cannot be submitted until her house is on the market, I understand. (3) Goals of care, counseling/discussion: Current visit: Yes Status: Acute Wants to be comfortable. Already feeling much better. Eating more. Has more energy. Able to participate in self-care a bit. Subjective Patient reports: no new complaints, feels better, still having pain, pain is less and tolerating a regular diet Interval history since last seen: Natalie is feeling better. Wearing a 50 mcg fentanyl patch on right upper arm. Doesn't have much body fat to absorb, but she thinks it is helping. Still has flashes of pain in her LLQ and left leg/ thigh. Reminded her to ask for liquid morphine at these times. Plan remains in place for her to transfer to [facility] on May 02. Appears she has enough money in the bank to pay for 2-3 months at his home. Ana, her elderly friend who found her so sick at home prior to her admission , has financial DPOA. Another friend, 15 years younger has her medical DPOA. She is beginning to think more and more about her . She says she's scared, but not terrified. Thinking a lot about her , Mariano, who suddenly of an acute [place] 20 years ago. She is interested in talking more about what to expect. I explained that she has improved overall since she was admitted to [facility]. She was quite malnourished on admission. She hadn't been able to make herself healthy meals for a while. She is eating well now. At first, she was consuming about 20-33% of her meals. Now, she's eating about 90%. She hasn't worked with PT/OT much yet. She wants to. Adán, her caregiver to be, wants her to be able to transfer on and off the commode/toilet, transfer in and out of bed, etc. Exam Const General: frail appearing and ill appearing Nutritional Appearance: underweight Orientation: alert, awake and oriented x3 HENMT Head: normocephalic and atraumatic Ears: hearing grossly normal bilaterally General nose exam: external nose normal and no nasal discharge Face and sinus: face symmetric Mouth: oral mucosae normal and moist mucous membranes Eyes Conjunctivae: conjunctivae normal Sclera: sclerae normal Resp Effort & Inspection: normal respiratory effort and able to speak in complete sentences Auscultation: clear to auscultation bilaterally Cardio Jugular venous pressure: no JVD Rate: regular rate Rhythm: regular rhythm Heart Sounds: S1 normal and S2 normal GI Inspection: scaphoid and scar Palpation: firm and tender Auscultation: normal bowel sounds Skin General skin exam: dry skin and pallor Hair: general thinning Neuro General: alert, awake and oriented x3 Cognition: normal cognition Speech: speech normal Sensory Exam: no sensory deficits noted Psych Appearance: grossly normal Mental Status: mental status grossly normal Speech and Movement: speech and movement normal and speech clear Mood: congruent mood Affect: normal affect and sad Attitude: cooperative Thought Process: normal Thought Content: normal Insight: insight good Judgment: judgment good Objective Objective Clinical Data: Vital Signs Temperature 99.7 F H 04/19/18 07:20 Temperature Source Tympanic 04/19/18 07:20 Pulse 78 04/19/18 07:20 Pulse Rhythm Regular 04/15/18 19:45 Respiratory Rate 18 04/19/18 07:20 Respiratory Effort 04/20/18 01:25 Respiratory Depth Normal 04/20/18 01:25 Respiratory Pattern Normal 04/20/18 01:25 Blood Pressure 100/56 L 04/19/18 07:20 Pulse Oximetry 98 04/19/18 07:20 Oxygen Delivery Method Room Air 04/19/18 07:20 Oxygen Flow Rate 0 04/19/18 07:20 Pain Level 5 04/19/18 19:35 Comment 04/17/18 04:00 Intake & Output 04/19/18 04/19/18 04/20/18 11:59 23:59 11:59 Intake Total 720 / 720 501 / 501 380 / 380 Output Total 250 / 250 Balance 470 / 470 501 / 501 380 / 380 Intake: IV Oral 720 / 720 490 / 490 380 / 380 Output: Urine 250 / 250 Other: Urine Color Yellow Urine Appearance Clear Urine Odor Normal Comment Checked paitent she was dry. brief is dry at this time Stool Size Small Stool Characteristics Soft Formed Voiding Methods Bedside Commode Diaper Incontinent
--- NOTE | 2018-04-20 11:10 | PT.INIE ---
Date of service: 04/20/18 Time of Service: 11:11 PT Notes Inpatient Physical Therapy Evaluation Date: 04/20/18 Referring Doctor: Yaakov Stephen PT Orders: PT CONSULT: STRENGTHENING Precautions: Fall precautions Patient Profile/Admitting Diagnosis: Pt is a 72yr old female admitted with colon cancer s/p resection metastasized to the lung and conjunctivitis PMHX:urinary incontinence, fecal incontinence, malnutrition, colon cancer s/p resection with mets to lungs, hypomagnesemia, hypokalemia Social History/Home Situation: Baseline mobility prior to admission was independent gait no device, independent with ADLS. Plan is to transfer to [facility] care 05/02/18 Equipment Owned/DME: none Subjective: Pt lying in bed, states she is very tired from taking a shower this morning, agreeable to PT Consult this morning to start therapy services. States she wants to rest this afternoon. Pt stating I am going to hospice care May 02, that will be my last stop. Objective: General observation: pt very thin with severe muscle wasting, pt reports she was 88lbs on admission but has gotten up to 100lbs Mental Status: A& O x3 Pain: no c/o pain ROM: Right Upper Extremity: AROM WNL Left Upper Extremity: AROM WNL Right Lower Extremity: AROM WNL Left Lower Extremity: AROM WNL Strength: Right Upper Extremity: 4/5 shoulder flexion, 4+/5 bicep, 5/5 manufacturing production manager Left Upper Extremity: 4/5 shoulder flexion, 4+/5 bicep, 5/5 manufacturing production manager Right Lower Extremity: 3/5 hip flexion, 3/5 quad, 4/5 DF/PF Left Lower Extremity: 3/5 hip flexion, 3/5 quad, 4/5 DF/PF Bed Mobility/Transfers: Supine-sit: HOB 30 degrees, independent Sit-stand: CGA with FWW Stand-sit: SBA Sit-supine: HOB flat independent Gait: CGA with FWW 3 side steps at bedside. Pt too tired to progress gait further at this time. FWW left in patient's room to use for transfers to commode with nursing. Balance: Static Sitting: normal Dynamic Sitting: normal Static Standing: fair Dynamic Standing: poor Special Tests: Mobility Limitations Standardized Measure [facility] 6 clicks Basic Mobility Inpatient Short Form: Raw Score: 17 Standardized Score: 42.13 CMS Score: 50.57% CMS Modifier: CK Informed Consent/Education: Patient instructed in purpose of PT consult and plan of care. Assessment: Pt is a 72yr old female admitted with colon cancer s/p resection metastasized to the lung and conjunctivitis with urinary incontinence, fecal incontinence, malnutrition. Patient presents with the following impairment level findings: severe weakness due to progressive cancer and deconditioning, decreased strength with transfers, gait only able to perform limited mobility due to weakness and requiring FWW for stability due to poor standing balance. Pt will benefit from strengthening and mobility training in order to improve functional level to transfer to hospice home 05/02/18. Impairments are contributing to the following functional limitations: AMPAC score CMS Score: 50.57% Patient is assessed as a High [id number] complexity based on the following: History: see above Examination: see above Presentation: evolving Decision Making: AMPAC score CMS Score: 50.57% Goals: Goals X1 week 1. Supine-Sit : independent 2. Sit-Supine : independent 3. Sit-Stand : supervision with FWW 4. Stand-Sit : supervision 5. Bed-Chair : SBA with FWW 6. Chair-Bed : SBA with FWW 7. Gait : SBA with FWW 30ftx2 Plan of Care/Treatment Plan: 1-2x/day, 7 days/week x 1 week. Plan of care has been reviewed with the DECK STEWARD providing the service under Physical Therapy direction. Initiate Physical Therapy intervention for strengthening, bed mobility, transfers, gait, stairs, balance training, use of assistive device. DISCHARGE RECOMMENDATIONS: Plan is [facility] house 05/02/18, FWW recommended for gait mobility TREATMENT CODE/TIME: 24 min IE 11:10 G Codes in the area mobility of walking and moving around: current status [id number] CK; projected status GP [id number]. Discharge status (if discharging) GP [id number] CK based on AMPAC scores Jyoti Ryder PT
--- NOTE | 2018-04-20 11:27 | IN_ITS ---
Date of service: 04/20/18 Time of Service: 11:11 PT Notes Inpatient Physical Therapy Evaluation Date: 04/20/18 Referring Doctor: Yaakov Stephen PT Orders: PT CONSULT: STRENGTHENING Precautions: Fall precautions Patient Profile/Admitting Diagnosis: Pt is a 72yr old female admitted with colon cancer s/p resection metastasized to the lung and conjunctivitis PMHX:urinary incontinence, fecal incontinence, malnutrition, colon cancer s/p resection with mets to lungs, hypomagnesemia, hypokalemia Social History/Home Situation: Baseline mobility prior to admission was independent gait no device, independent with ADLS. Plan is to transfer to [facility] care 05/02/18 Equipment Owned/DME: none Subjective: Pt lying in bed, states she is very tired from taking a shower this morning, agreeable to PT Consult this morning to start therapy services. States she wants to rest this afternoon. Pt stating I am going to hospice care May 02 , that will be my last stop. Objective: General observation: pt very thin with severe muscle wasting, pt reports she was 88lbs on admission but has gotten up to 100lbs Mental Status: A& O x3 Pain: no c/o pain ROM: Right Upper Extremity: AROM WNL Left Upper Extremity: AROM WNL Right Lower Extremity: AROM WNL Left Lower Extremity: AROM WNL Strength: Right Upper Extremity: 4/5 shoulder flexion, 4+/5 bicep, 5/5 examining chair assembler Left Upper Extremity: 4/5 shoulder flexion, 4+/5 bicep, 5/5 examining chair assembler Right Lower Extremity: 3/5 hip flexion, 3/5 quad, 4/5 DF/PF Left Lower Extremity: 3/5 hip flexion, 3/5 quad, 4/5 DF/PF Bed Mobility/Transfers: Supine-sit: HOB 30 degrees, independent Sit-stand: CGA with FWW Stand-sit: SBA Sit-supine: HOB flat independent Gait: CGA with FWW 3 side steps at bedside. Pt too tired to progress gait further at this time. FWW left in patient's room to use for transfers to commode with nursing. Balance: Static Sitting: normal Dynamic Sitting: normal Static Standing: fair Dynamic Standing: poor Special Tests: Mobility Limitations [facility] Basic Mobility Inpatient Short Form: Raw Score: 17 Standardized Score: 42.13 CMS Score: 50.57% CMS Modifier: CK Informed Consent/Education: Patient instructed in purpose of PT consult and plan of care. Assessment: Pt is a 72yr old female admitted with colon cancer s/p resection metastasized to the lung and conjunctivitis with urinary incontinence, fecal incontinence, malnutrition. Patient presents with the following impairment level findings: severe weakness due to progressive cancer and deconditioning, decreased strength with transfers , gait only able to perform limited mobility due to weakness and requiring FWW for stability due to poor standing balance. Pt will benefit from strengthening and mobility training in order to improve functional level to transfer to hospice home 05/02/18. Impairments are contributing to the following functional limitations: AMPAC score CMS Score: 50.57% Patient is assessed as a High [id number] complexity based on the following: History: see above Examination: see above Presentation: evolving Decision Making: AMPAC score CMS Score: 50.57% Goals: Goals X1 week 1. Supine-Sit : independent 2. Sit-Supine : independent 3. Sit-Stand : supervision with FWW 4. Stand-Sit : supervision 5. Bed-Chair : SBA with FWW 6. Chair-Bed : SBA with FWW 7. Gait : SBA with FWW 30ftx2 Plan of Care/Treatment Plan: 1-2x/day, 7 days/week x 1 week. Plan of care has been reviewed with the FILM TOUCH UP INSPECTOR providing the service under Physical Therapy direction. Initiate Physical Therapy intervention for strengthening, bed mobility, transfers, gait, stairs, balance training, use of assistive device. DISCHARGE RECOMMENDATIONS: Plan is [facility] hospice house 05/02/18, FWW recommended for gait mobility TREATMENT CODE/TIME: 24 min IE 11:10 G Codes in the area mobility of walking and moving around: current status [id number] CK; projected status GP [id number]. Discharge status (if discharging) GP G8980 CK based on AMPAC scores Jyoti Ryder PT
--- NOTE | 2018-04-20 11:52 | PDOC.CMACT ---
- If Service Date Differs Date of service: 04/20/18 Time of Service: 11:52 Care Management Activity Note Adán Francis came to visit Natalie this morning and reviewed financials with CM. CM asked PT to continue to/start working with Natalie as she will need to be able to transfer with some ease upon arrival at Ad[facility]'s home on 05/02. CM will continue to offer support to patient and care team regarding discharge planning and disposition.
--- NOTE | 2018-04-20 15:06 | W.PM.PROGNOT ---
Date of Service Date of service: 04/20/18 Time of Service: 15:06 Assessment and Plan (1) Colon cancer metastasized to lung: Current visit: Yes Status: Chronic Continue comfort measures. Continue pain control for cancer related pain, currently fentanyl patch at 50 mcg/hr. Titrate pain medication as needed. (2) Discharge planning issues: Current visit: No Status: Acute She is a DNR/DNI. The plan is for her to transition to [facility] in [place], [place] on 05/02/18. This case was discussed with Dr. Stephen who is in agreement. Subjective Interval history since last seen: Natalie cedeño is a 72 year old female with history of metastatic colon cancer, previously on chemo and s/p resection. She originally presented to the ED with profound dehydration. She is currently on comfort measures awaiting placement at a private hospice house on 05/02/18. She feels that her pain is well controlled, better not that she has a 50 mcg fentanyl patch. She still occasionally gets pain in her LL abdomen and in her left thigh. She believes it is the cancer that has spread that is causing her pain. She reports that she has been quite depressed thinking about the fact that she is dying. Over the past few days, she has decided that she will not let thoughts of her consume her. She feels better today, now that she is talking more about the end of her life. She is eating and drinking well. She is no longer having diarrhea. She has actually been somewhat constipated from the narcotics. She had a bowel movement today. She began working with PT today. She denies CP/pressure, SOB, nausea, vomiting or dysuria. She offers no other complaints. Exam Narrative Exam Narrative: General: Very pleasant 72 year old female, appears frail and cachectic. Alert and oriented. Skin is pale. She is pleasant and cooperative. Neuro: speech is clear and articulate, no focal deficits. HEENT: Normocephalic, atraumatic. Pupils are equal and round. Sclera are non-icteric, conjunctiva are noninjected, no discharge or drainage from eyes. Mucous membranes are moist. Cardiovascular: Heart has a regular rate and rhythm. No murmur, click, gallop or rub. Respiratory: Her respirations are even and unlabored, no coughing. Lung sounds diminished throughout. No rales, rhonchi or wheeze. Abdomen: thin, soft, normoactive bowel sounds, no masses appreciated. Extremities: no clubbing, cyanosis or edema. Pedal pulses are faint bilaterally. Toenails remain thick but have been trimmed. Objective Objective Clinical Data: Vital Signs Temperature 37.6 C H 04/19/18 07:20 Temperature Source Tympanic 04/19/18 07:20 Pulse 78 04/19/18 07:20 Pulse Rhythm Regular 04/15/18 19:45 Respiratory Rate 18 04/19/18 07:20 Respiratory Effort 04/20/18 09:01 Respiratory Depth Normal 04/20/18 09:01 Respiratory Pattern Normal 04/20/18 09:01 Blood Pressure 100/56 L 04/19/18 07:20 Pulse Oximetry 98 04/19/18 07:20 Oxygen Delivery Method Room Air 04/19/18 07:20 Oxygen Flow Rate 0 04/19/18 07:20 Pain Level 5 04/20/18 09:58 Comment 04/17/18 04:00 Intake & Output 04/19/18 04/20/18 04/20/18 23:59 11:59 23:59 Intake Total 501 / 501 380 / 380 250 / 250 Output Total 350 / 350 Balance 501 / 501 30 / 30 250 / 250 Intake: IV Oral 490 / 490 380 / 380 250 / 250 Output: Urine 350 / 350 Other: Urine Color Yellow Urine Appearance Clear Urine Odor Normal Comment brief is dry at this time Checked paitent at 130, she was dry, checked paitent at 250 she was dry again. Stool Size Moderate Stool Characteristics Soft Formed Voiding Methods Bedside Commode
[2018-04-20] MEDS: Normal Saline Flush 10 ML SYR IVP ×2 (16:38→21:24)
[2018-04-20] MEDS: Melatonin 3 MG TAB PO (21:24)
[2018-04-21] MEDS: Magnesium Oxide 400 MG TAB PO (07:33)
[2018-04-21] MEDS: HYDROcodone 5/Acetaminophen 325 TAB PO (07:34)
[2018-04-21] MEDS: Nystatin 500000 UNITS/5 ML SUSP 5ML CUP PO ×3 (07:34→19:11)
[2018-04-21] MEDS: Normal Saline Flush 10 ML SYR IVP ×4 (07:48→22:36)
[2018-04-21] MEDS: Docusate Sodium 100 MG CAP PO ×2 (07:48→19:11)
--- NOTE | 2018-04-21 09:43 | PDOC.CMPRO ---
Care Management Progress Note Magalis remains a pleasure to have in SWB1 at [facility]; she is utilizing PT/OT for strengthening in anticipation of discharging to [facility] on 05/02/18. She continues to enjoy visiting with friends and staff. She will remain at [facility] until discharging to [facility].
--- NOTE | 2018-04-21 09:44 | CMPROGNOTE_ITS ---
Care Management Progress Note Magalis remains a pleasure to have in [facility] at [facility]; she is utilizing PT/OT for strengthening in anticipation of discharging to [facility] on 05/02/18. She continues to enjoy visiting with friends and staff. She will remain at [facility] until discharging to [facility].
[2018-04-21] MEDS: Melatonin 3 MG TAB PO (22:29)
[2018-04-22] MEDS: Magnesium Oxide 400 MG TAB PO (07:49)
[2018-04-22] MEDS: Nystatin 500000 UNITS/5 ML SUSP 5ML CUP PO ×3 (07:50→21:40)
[2018-04-22] MEDS: HYDROcodone 5/Acetaminophen 325 TAB PO ×2 (10:48→18:26)
[2018-04-22] MEDS: Docusate Sodium 100 MG CAP PO (10:48)
[2018-04-22] MEDS: Polyethylene Glycol 3350 17 GM PACKET PO (10:49)
[2018-04-22] MEDS: fentaNYL 50 MCG PATCH TD (12:56)
--- NOTE | 2018-04-22 13:11 | PT.INNT ---
Date of service: 04/22/18 Time of Service: 13:11 PT Notes PHYSICAL THERAPY NOTE 04/22/18 Attempted 2x to see patient for therapy sessions in am and pm. 1st attempt pt refused stating too much pain and waiting for pain medicine. 2nd attempt pt refused stating she had constipation. Discussed with patient if she still wanted to be on Physical Therapy services, she said she does because she wants to be able to get around at [facility]. Pt agreeable to PT tomorrow. Will continue attempts. Jyoti Ryder PT
[2018-04-22 17:05] VITALS: BP 113/60; PULSE 87; RESP 18; TEMP 37.5; O2SAT 97
[2018-04-22] MEDS: Melatonin 3 MG TAB PO (21:40)
[2018-04-23] MEDS: HYDROcodone 5/Acetaminophen 325 TAB PO ×3 (08:28→20:07)
[2018-04-23] MEDS: Acetaminophen 325 MG TAB PO ×2 (08:29→13:55)
[2018-04-23] MEDS: Normal Saline Flush 10 ML SYR IVP ×2 (08:29→18:25)
[2018-04-23] MEDS: Magnesium Oxide 400 MG TAB PO (08:29)
[2018-04-23] MEDS: Nystatin 500000 UNITS/5 ML SUSP 5ML CUP PO ×3 (08:29→20:07)
[2018-04-23 08:30] VITALS: BP 120/61; PULSE 90; RESP 16; TEMP 37; O2SAT 98
--- NOTE | 2018-04-23 11:31 | PT.INTREAT ---
Date of service: 04/23/18 Time of Service: 11:32 PT Notes Inpatient Physical Therapy Treatment Note Date: 04/23/18 PRECAUTIONS: Fall SUBJECTIVE: Magalis is willing to participate in PT. OBJECTIVE: PAIN: No complaints of pain BED MOBILITY/TRANSFERS Supine-sit: I Sit-supine: I Sit-stand: SBA Stand-sit: SBA GAIT Assistive Device: FWW Weight bearing: WBAT Assist: SBA Distance: 25' x2 Deviation: Standing rest x2 ASSESSMENT: Patient tolerated session well, with complaints of increased fatigue following gait training. Patient requires standing rest x2 with progression in gait distance with FWW support. Patient would benefit from continued gait and transfer training as well as strengthening for improved mobility. PLAN: Continue with PT as POC TREATMENT CODE/TIME: 23 minutes; TA x2
[2018-04-23 20:10] VITALS: BP 112/69; PULSE 70; RESP 18; TEMP 36.2; O2SAT 97
[2018-04-23] MEDS: Melatonin 3 MG TAB PO (22:42)
[2018-04-24] MEDS: Normal Saline Flush 10 ML SYR IVP ×5 (00:29→21:59)
[2018-04-24] MEDS: HYDROcodone 5/Acetaminophen 325 TAB PO ×3 (06:05→20:50)
[2018-04-24 07:30] VITALS: BP 101/54; PULSE 72; RESP 16; TEMP 36.3; O2SAT 97
[2018-04-24] MEDS: Docusate Sodium 100 MG CAP PO ×2 (08:30→13:49)
[2018-04-24] MEDS: Acetaminophen 325 MG TAB PO ×2 (08:30→13:50)
[2018-04-24] MEDS: Nystatin 500000 UNITS/5 ML SUSP 5ML CUP PO ×3 (08:30→20:50)
[2018-04-24] MEDS: Magnesium Oxide 400 MG TAB PO (08:30)
--- NOTE | 2018-04-24 16:54 | PT.INTREAT ---
Date of service: 04/24/18 Time of Service: 09:40 PT Notes Inpatient Physical Therapy Treatment Note Date: 04/24/18 PRECAUTIONS: Fall SUBJECTIVE: Magalis states that she is feeling nauseous today, and isn't sure how much she will be able to participate. OBJECTIVE: PAIN: No c/o pain BED MOBILITY/TRANSFERS Supine-sit: I Sit-stand: SBA Stand-sit: SBA GAIT Assistive Device: FWW Weight bearing: WBAT Assist: SBA Distance: 25' + 15' Deviation: Increased fatigue THEREX: Patient using commode, unable to participate at this time. ASSESSMENT: Patient tolerated session with c/o increased fatigue with gait training. She would benefit from continued gait and transfer training for improved mobility and ability to perform functional daily tasks. PLAN: Continue with PT's POC TREATMENT CODE/TIME: 15 minutes; LEONARDO
[2018-04-24] MEDS: Melatonin 3 MG TAB PO (21:58)
[2018-04-25] MEDS: Normal Saline Flush 10 ML SYR IVP ×5 (03:47→21:55)
[2018-04-25] MEDS: Magnesium Oxide 400 MG TAB PO (07:38)
[2018-04-25] MEDS: Docusate Sodium 100 MG CAP PO ×2 (07:38→13:33)
[2018-04-25] MEDS: Nystatin 500000 UNITS/5 ML SUSP 5ML CUP PO ×2 (07:39→13:33)
[2018-04-25] MEDS: HYDROcodone 5/Acetaminophen 325 TAB PO ×2 (07:39→14:30)
[2018-04-25] MEDS: fentaNYL 75 MCG PATCH TD (10:01)
--- NOTE | 2018-04-25 15:46 | PT.INTREAT ---
Date of service: 04/25/18 Time of Service: 15:46 PT Notes Inpatient Physical Therapy Treatment Note Date: 04/25/18 PRECAUTIONS: Fall SUBJECTIVE: Magalis states that she is feeling a little better this afternoon, however still doesn't really feel well. OBJECTIVE: PAIN: Patient c/o L buttock pain with gait training and L groin pain with ther ex BED MOBILITY/TRANSFERS Sit-supine: I Sit-stand: SBA Stand-sit: SBA GAIT Assistive Device: FWW Weight bearing: WBAT Assist: SBA Distance: 50' x2 Deviation: L buttock pain THEREX: Patient completed a LE strengthening program, while seated at EOB, as per flow sheet. ASSESSMENT: Patient tolerated a progression in gait distance with FWW support, with c/o increased fatigue and L buttock pain. She was also able to tolerate the addition of LE exercises, with c/o pain in L groin area. PLAN: Continue with PT's POC TREATMENT CODE/TIME: 30 minutes; TA/TP
[2018-04-25 16:16] VITALS: BP 109/67; PULSE 80; RESP 17; TEMP 36.7; O2SAT 98
[2018-04-25] MEDS: Ondansetron 4 MG/2 ML VIAL IVP ×2 (16:46→20:09)
--- NOTE | 2018-04-25 22:29 | NUR.NOTE ---
Patient complaining of having nausea and vomited once. Medicated with PRN antiemetic as required.
[2018-04-26 07:22] VITALS: BP 113/59; PULSE 78; RESP 17; TEMP 36.7; O2SAT 97
[2018-04-26] MEDS: Magnesium Oxide 400 MG TAB PO (07:44)
[2018-04-26] MEDS: Docusate Sodium 100 MG CAP PO ×3 (07:44→20:00)
[2018-04-26] MEDS: Nystatin 500000 UNITS/5 ML SUSP 5ML CUP PO ×2 (07:44→20:00)
[2018-04-26] MEDS: Normal Saline Flush 10 ML SYR IVP ×4 (07:45→22:12)
[2018-04-26] MEDS: Ondansetron 4 MG/2 ML VIAL IVP ×2 (08:04→22:11)
--- NOTE | 2018-04-26 11:38 | PT.INNT ---
Date of service: 04/26/18 Time of Service: 09:38 PT Notes PHYSICAL THERAPY NOTE 04/26/18 Pt stating she had a bad night and is too tired today to participate in therapy sessions, wanting to rest. Hold P.T per patient's request. Jyoti Ryder PT
--- NOTE | 2018-04-26 13:42 | CMPROGNOTE_ITS ---
- If Service Date Differs Date of service: 04/26/18 Time of Service: 13:35 Care Management Progress Note CM visited [facility] in [place] this afternoon. Natalie will transfer there on 05/02 with transportation TBD. Hospice will begin at the time of arrival. Ana, Natalie's friend, had many questions for Adán; answers to follow and will be shared with Ana and Natalie. Payment in check form for $7,000 should be written to [facility] on 05/02 at arrival. Payment monthly in the form of a check. Natalie should not be needing any linda with her. Natalie may bring belongings that are most special to her; ie an spanish, however [facility] suggests a minimal amount of belongings. Natalie will need just a couple 'outfits'. She will not need to bring a TV. She should bring her phone. Visitation anytime (within reason). Adán asks that friends phone him directly prior to visiting. CM will provide phone numbers of Natalie's contacts (Peace and Ana) to Adán. An 11:30am discharge on 05/02 would work best for Adán; hospice will be at the home after noon. CM will continue to offer support to patient, friends, and care team regarding discharge planning and disposition.
[2018-04-26] MEDS: Polyethylene Glycol 3350 17 GM PACKET PO (14:09)
[2018-04-26] MEDS: Senna TAB 2 TAB PO (22:05)
[2018-04-26] MEDS: Melatonin 3 MG TAB PO (22:06)
[2018-04-26] MEDS: HYDROcodone 5/Acetaminophen 325 TAB PO (22:11)
[2018-04-27 08:35] VITALS: BP 99/52; PULSE 71; RESP 16; TEMP 37.3; O2SAT 94
[2018-04-27] MEDS: Magnesium Oxide 400 MG TAB PO (09:45)
[2018-04-27] MEDS: HYDROcodone 5/Acetaminophen 325 TAB PO ×2 (09:45→15:16)
[2018-04-27] MEDS: Docusate Sodium 100 MG CAP PO ×3 (09:45→19:42)
--- NOTE | 2018-04-27 10:52 | PT.INPN ---
Date of service: 04/27/18 Time of Service: 10:03 PT Notes Inpatient Physical Therapy Progress Note Date: 04/27/18 Dates of Service: 04/20/18-04/27/18 PRECAUTIONS: Fall precautions SUBJECTIVE: Pt lying in bed reluctant to participate in therapy session but agrees to stating Adán wants me to be stronger before I go to his home. OBJECTIVE: PAIN: no c/o pain Bed Mobility/Transfers: Supine-sit: independent Sit-stand: SBA with FWW Stand-sit: SBA Pt up on commode at end of session with call light in reach Gait: SBA with FWW [id number], steady step through gait pattern, cues to stand closer to FWW to improve posture. Balance: Static Sitting: normal Dynamic Sitting: normal Static Standing: fair Dynamic Standing: fair Assessment: Pt is a 72yr old female admitted with colon cancer s/p resection metastasized to the lung and conjunctivitis with urinary incontinence, fecal incontinence, malnutrition. Patient has been making slow steady progress with therapy intervention, participation in therapy session varies day to day depending on her fatigue and pain. Pt has progressed from CGA standing transfers to SBA, from CGA gait with FWW 3 steps to SBA gait with FWW [id number]. Dynamic standing balance improved from poor to fair. Pt will benefit from continued therapy interevention for strengthening and progressive mobility training, plan is to discharge to hospice assisted 05/02/18. Goals: Goals X1 week 1. Supine-Sit : independent 2. Sit-Supine : independent 3. Sit-Stand : supervision with FWW 4. Stand-Sit : supervision 5. Bed-Chair : SBA with FWW 6. Chair-Bed : SBA with FWW 7. Gait : SBA with FWW 30ftx2 Pt met goals # 1, 2, 5, 6, 7 UPDATED GOALS: x 1 week 1. Sit-stand: supervision with FWW 2. Stand-sit: supervision 3. Bed-chair: supervision with FWW 4. Chair-bed: supervision with FWW 5. Gait: supervision with FWW 200ft 6. independent with home exercise program Plan of Care/Treatment Plan: Continue 1-2x/day, 7 days/week x 1 week. Updated plan of care has been reviewed with the [employer] providing the service under Physical Therapy direction. Continue Physical Therapy intervention for strengthening, bed mobility, transfers, gait, stairs, balance training, use of assistive device. DISCHARGE RECOMMENDATIONS: Plan is [facility] hospice house 05/02/18, FWW recommended for gait mobility TREATMENT CODE/TIME: 25 min TAx2 10:01 G Codes in the area mobility of walking and moving around: current status [id number] CK; projected status GP [id number]. Discharge status (if discharging) GP [id number] CK based on [facility] scores Jyoti Ryder PT
--- NOTE | 2018-04-27 10:59 | INPN_ITS ---
Date of service: 04/27/18 Time of Service: 10:03 PT Notes Inpatient Physical Therapy Progress Note Date: 04/27/18 Dates of Service: 04/20/18-04/27/18 PRECAUTIONS: Fall precautions SUBJECTIVE: Pt lying in bed reluctant to participate in therapy session but agrees to stating Adán wants me to be stronger before I go to his home. OBJECTIVE: PAIN: no c/o pain Bed Mobility/Transfers: Supine-sit: independent Sit-stand: SBA with FWW Stand-sit: SBA Pt up on commode at end of session with call light in reach Gait: SBA with FWW [id number], steady step through gait pattern, cues to stand closer to FWW to improve posture. Balance: Static Sitting: normal Dynamic Sitting: normal Static Standing: fair Dynamic Standing: fair Assessment: Pt is a 72yr old female admitted with colon cancer s/p resection metastasized to the lung and conjunctivitis with urinary incontinence, fecal incontinence, malnutrition. Patient has been making slow steady progress with therapy intervention, participation in therapy session varies day to day depending on her fatigue and pain. Pt has progressed from CGA standing transfers to SBA, from CGA gait with FWW 3 steps to SBA gait with FWW [id number]. Dynamic standing balance improved from poor to fair. Pt will benefit from continued therapy interevention for strengthening and progressive mobility training, plan is to discharge to hospice [facility] 05/02/18. Goals: Goals X1 week 1. Supine-Sit : independent 2. Sit-Supine : independent 3. Sit-Stand : supervision with FWW 4. Stand-Sit : supervision 5. Bed-Chair : SBA with FWW 6. Chair-Bed : SBA with FWW 7. Gait : SBA with FWW 30ftx2 Pt met goals # 1, 2, 5, 6, 7 UPDATED GOALS: x 1 week 1. Sit-stand: supervision with FWW 2. Stand-sit: supervision 3. Bed-chair: supervision with FWW 4. Chair-bed: supervision with FWW 5. Gait: supervision with FWW 200ft 6. independent with home exercise program Plan of Care/Treatment Plan: Continue 1-2x/day, 7 days/week x 1 week. Updated plan of care has been reviewed with the [employer] providing the service under Physical Therapy direction. Continue Physical Therapy intervention for strengthening, bed mobility, transfers, gait, stairs, balance training, use of assistive device. DISCHARGE RECOMMENDATIONS: Plan is [facility] hospice house 05/02/18, FWW recommended for gait mobility TREATMENT CODE/TIME: 25 min TAx2 10:01 G Codes in the area mobility of walking and moving around: current status [id number] CK; projected status GP [id number]. Discharge status (if discharging) GP G8980 CK based on [facility] scores Jyoti Ryder PT
[2018-04-27] MEDS: Polyethylene Glycol 3350 17 GM PACKET PO (11:41)
--- NOTE | 2018-04-27 11:51 | CHAPLAIN ---
Natalie was in bed when I visited. She said she had just been out for a walk. She tells me she is getting nervous and excited about moving to [facility]'s house on May.02. I asked if she has spoken to Dr. Pink recently, as last week Natalie had told me that she wanted to talk with Dr. Pink about dying. She said she know the moving into [facility] her last move and that she will there, but she more questions about how she will actually that she would like to ask. Natalie couldn't remember if she'd had that conversation with Dr. Pink, as the days are starting to run together. She has been here about a month already. Natalie has strong support from longtime friends who have continued to visit and call her.
--- NOTE | 2018-04-27 13:30 | PT.INNT ---
Date of service: 04/27/18 Time of Service: 13:30 PT Notes 04/27/18 Patient refused afternoon PT session, stating that she feels tired and nauseous. Will attempt to resume PT services tomorrow morning.
--- NOTE | 2018-04-27 14:28 | PDOC.CMPRO ---
- If Service Date Differs Date of service: 04/27/18 Time of Service: 14:28 Care Management Progress Note CM visited with Natalie and Ana this afternoon to address Ana's questions regarding Natalie's discharge. Answers to questions are below. Mer[place], [facility] Dust Operator has volunteered to drive Natalie to [facility] on 05/02 at 11:30am. (Merced will drive Natalie as a friend, not as an employee of [facility]). Natalie does not have her own phone and Ana will be looking into purchasing one prior to her discharge. Natalie seemed a little saddened when discussing the cost of her stay at [facility], stating I hope I don't live too long given the costs. She expressed some remorse at not knowing what her cancer was doing (now that labs are not being drawn, etc) and asked if Dr. Pink might be able to visit and discuss this with her. ROD contacted Dr. Pink's office and she will visit with Natalie tomorrow. Payment in check form for $7,000 should be written to [facility] on 05/02 at arrival. Payment monthly in the form of a check. Natalie should not be needing any linda with her. Natalie may bring belongings that are most special to her; ie an venezuelan, however Bill suggests a minimal amount of belongings. Natalie will need just a couple 'outfits'. She will not need to bring a TV. She should bring her phone. Visitation anytime (within reason). Adán asks that friends phone him directly prior to visiting. ROD provided Ana and [facility]'s numbers to [facility] per his request. An 11:30am discharge on 05/02 would work best for Bill; hospice will be at the home after noon. CM will continue to offer support to patient, friends, and care team regarding discharge planning and disposition.
--- NOTE | 2018-04-27 14:37 | CMPROGNOTE_ITS ---
- If Service Date Differs Date of service: 04/27/18 Time of Service: 14:28 Care Management Progress Note CM visited with Natalie and Ana this afternoon to address Ana's questions regarding Natalie's discharge. Answers to questions are below. Merced, [facility] [employer] Crew Member has volunteered to drive Natalie to [facility] on 05/02 at 11:30am. (Merced will drive Natalie as a friend, not as an employee of [employer]). Natalie does not have her own phone and Ana will be looking into purchasing one prior to her discharge. Natalie seemed a little saddened when discussing the cost of her stay at [facility], stating I hope I don't live too long given the costs. She expressed some remorse at not knowing what her cancer was doing (now that labs are not being drawn, etc) and asked if Dr. Pink might be able to visit and discuss this with her. ROD contacted Dr. Pink's office and she will visit with Natalie tomorrow. Payment in check form for $7,000 should be written to [facility] on 05/02 at arrival. Payment monthly in the form of a check. Natalie should not be needing any linda with her. Natalie may bring belongings that are most special to her; ie an north korean, however Bill suggests a minimal amount of belongings. Natalie will need just a couple 'outfits'. She will not need to bring a TV. She should bring her phone. Visitation anytime (within reason). Adán asks that friends phone him directly prior to visiting. ROD provided Ana and [facility] numbers to [facility] per his request. An 11:30am discharge on 05/02 would work best for [facility]; hospice will be at the home after noon. CM will continue to offer support to patient, friends, and care team regarding discharge planning and disposition.
[2018-04-27 19:17] VITALS: BP 111/67; PULSE 74; RESP 16; TEMP 36.7; O2SAT 95
[2018-04-27] MEDS: Senna TAB 2 TAB PO (21:31)
[2018-04-27] MEDS: Melatonin 3 MG TAB PO (21:31)
--- NOTE | 2018-04-27 22:35 | NUR.NOTE ---
Nursing Note: Patient refused the nystatin swish and swallow, she stated that it was already 10 days that I was taking that Remains with small mouth white thrush. Has no good insight of the education provided of the importance of taking ordered med. Call lights within reach.
[2018-04-28 07:54] VITALS: BP 109/60; PULSE 70; RESP 16; TEMP 36.7; O2SAT 96
[2018-04-28] MEDS: Magnesium Oxide 400 MG TAB PO (09:34)
[2018-04-28] MEDS: Docusate Sodium 100 MG CAP PO ×3 (09:34→20:11)
[2018-04-28] MEDS: HYDROcodone 5/Acetaminophen 325 TAB PO (09:34)
[2018-04-28] MEDS: fentaNYL 75 MCG PATCH TD (09:35)
--- NOTE | 2018-04-28 09:46 | PT.INNT ---
Date of service: 04/28/18 Time of Service: 09:46 PT Notes 04/28/18 Patient refused morning PT session, stating that she is nauseous and had a bad night, I just can't this morning. Will attempt to resume PT services later today.
--- NOTE | 2018-04-28 14:39 | PGE_ITS ---
Date of Service Date of service: 04/28/18 Time of Service: 14:35 Assessment and Plan (1) Colon cancer metastasized to lung: Current visit: Yes Status: Chronic Continue comfort measures. Continue pain control for cancer related pain, currently fentanyl patch at 75 mcg/hr. Titrate pain medication as needed. Continue PRN norco and morphine. Ativan as needed for anxiety. (2) Constipation: Current visit: Yes Status: Acute Likely related to increasing narcotics for cancer related pain. Continue scheduled colace, schedule miralax. Continue PRN milk of magnesia. Plan to give dulcolax suppository now, give milk of magnesia this evening if no results. (3) Discharge planning issues: Current visit: No Status: Acute She is a DNR/DNI. The plan is for her to transition to [facility] in [place], [place] on 05/02/18. This case was discussed with Dr. Sidhu who is in agreement. Subjective Interval history since last seen: Natalie cedeño is a 72 year old female with history of metastatic colon cancer, previously on chemo and s/p resection. She originally presented to the ED with profound dehydration. She is currently on comfort measures awaiting placement at a private hospice house on 05/02/18. She continues to have pain despite being on Fentanyl 75 mcg patch. She is taking some PRN medication, she took 3 norco in the prior 24 hours. She also has not moved her bowels significantly in the past several days. She has been reluctant to take bowel medications as she had nearly continuous diarrhea when she came in. She is nauseated, her appetite is poor, she feels bloated and as if she needs to have a bowel movement. She is agreeable to trying a suppository , she declines an enema. She agrees to take bowel medication more regularly. She understands the correlation between pain medication and constipation. She feels anxious today. She denies chest pain/pressure, palpitations, shortness of breath, she has been working with PT and making slow steady progress. Exam Narrative Exam Narrative: General: Very pleasant 72 year old female, appears frail and cachectic. Alert and oriented. Skin is pale. She is pleasant and cooperative. Neuro: speech is clear and articulate, no focal deficits. HEENT: Normocephalic, atraumatic. Pupils are equal and round. Sclera are non- icteric, conjunctiva are noninjected. Mucous membranes are moist. Respiratory: Her respirations are even and unlabored, no coughing. Abdomen: thin, soft, mildly distended, normoactive bowel sounds. Extremities: no clubbing, cyanosis or edema. Pedal pulses are faint bilaterally. Toenails remain hypertrophic. Objective Objective Clinical Data: Vital Signs Temperature 36.7 C 04/27/18 19:17 Temperature Source Tympanic 04/27/18 19:17 Pulse 74 04/27/18 19:17 Pulse Rhythm Regular 04/15/18 19:45 Respiratory Rate 16 04/27/18 19:17 Respiratory Effort Non-Labored 04/28/18 09:35 Respiratory Depth Normal 04/28/18 09:35 Respiratory Pattern Normal 04/28/18 09:35 Blood Pressure 111/67 04/27/18 19:17 Pulse Oximetry 95 04/27/18 19:17 Oxygen Delivery Method Room Air 04/27/18 19:17 Oxygen Flow Rate 0 04/27/18 19:17 Pain Level 6 04/28/18 09:34 Comment 04/17/18 04:00 Intake & Output 04/27/18 04/28/18 04/28/18 23:59 11:59 23:59 Intake Total 240 / 240 Balance 240 / 240 Intake: Oral 240 / 240 Other: Comment Void x 1 in toilet Voiding Methods Toilet
--- NOTE | 2018-04-28 18:25 | W.PALPGNOTE ---
Date of service: 04/28/18 Objective Objective Clinical Data: Abnormal lab results 04/29/18 Range/Units 10:00 Sodium 135 L (136-145) mmol/L Vital Signs Temperature 97.7 F 04/29/18 07:25 Temperature Source Tympanic 04/29/18 07:25 Pulse 78 04/29/18 07:25 Pulse Rhythm Regular 04/15/18 19:45 Respiratory Rate 18 04/29/18 07:25 Respiratory Effort Non-Labored 04/29/18 09:22 Respiratory Depth Normal 04/29/18 09:22 Respiratory Pattern Normal 04/29/18 09:22 Blood Pressure 97/58 L 04/29/18 07:25 Pulse Oximetry 98 04/29/18 07:25 Oxygen Delivery Method Room Air 04/29/18 07:25 Oxygen Flow Rate 0 04/29/18 07:25 Pain Level 6 04/29/18 17:15 Comment 04/17/18 04:00 Intake & Output 04/28/18 04/29/18 04/29/18 23:59 11:59 23:59 Intake Total 240 / 240 510 / 510 Balance 240 / 240 510 / 510 Intake: IV 20 / 20 Oral 240 / 240 490 / 490 Other: Urine Color Yellow Yellow Urine Appearance Clear Clear Stool Size Small Large Stool Characteristics Hard Soft Formed Brown Voiding Methods Diaper Toilet Incontinent Laboratory Results Sodium 135 mmol/L (136-145) L 04/29/18 10:00 Potassium 4.0 mmol/L (3.5-5.1) 04/29/18 10:00 Chloride 98 mmol/L (98-107) 04/29/18 10:00 Carbon Dioxide 30.0 mmol/L (21.0-32.0) 04/29/18 10:00 Anion Gap 7.0 mmol/L (3-11) 04/29/18 10:00 BUN 14 mg/dL (7-18) 04/29/18 10:00 Creatinine 0.65 mg/dL (0.55-1.02) 04/29/18 10:00 Estimated GFR/1.73 m2 >= 60.00 (mL/min/1.73m2) 04/29/18 10:00 Glucose 100 mg/dL (70-100) 04/29/18 10:00 Calcium 9.7 mg/dL (8.5-10.1) 04/29/18 10:00
[2018-04-28] MEDS: Normal Saline Flush 10 ML SYR IVP (19:19)
[2018-04-28 20:00] VITALS: BP 117/1; PULSE 88; RESP 16; TEMP 37; O2SAT 8
[2018-04-28] MEDS: Senna TAB 2 TAB PO (21:52)
[2018-04-28] MEDS: Melatonin 3 MG TAB PO (21:52)
--- NOTE | 2018-04-29 03:01 | NUR.NOTE ---
Nursing Note: Pt refused dulcolax suppository she stated that I had a good amount of bowel movement at 1800 hrs., also pt does not want to take nystatin swish and swallow at HS. Medicated with morphine as requested, refused vicodin po offered. Checked for incontinency, refused to get out of bed until this time. wears brief and no wet until this time.Instructed to call staff for needs. call lights at reach.
[2018-04-29 07:25] VITALS: BP 97/58; PULSE 78; RESP 18; TEMP 36.5; O2SAT 98
[2018-04-29] MEDS: Bisacodyl 10 MG SUPP PR (09:14)
--- NOTE | 2018-04-29 09:23 | PT.INNT ---
Date of service: 04/29/18 Time of Service: 09:23 PT Notes 04/29/18 Refused PT.
[2018-04-29 10:18] LABS: BUN 14 mg/dL (7-18); CREATININE 0.65 mg/dL (0.55-1.02); Calcium 9.7 mg/dL (8.5-10.1); Chloride 98 mmol/L (98-107); Glucose 100 mg/dL (70-100); Sodium 135 mmol/L (136-145)
--- NOTE | 2018-04-29 12:00 | DI.CT_ITS ---
SYMPTOM/DIAGNOSIS: METASTATIC COLON CA, DETERMINE EXTENT OF CA CHEST, ABDOMEN AND PELVIC CT: CT examination of the chest, abdomen and pelvis was performed with a bolus infusion of 100 cc's of Omnipaque 350 and ingestion of dilute barium. The most recent chest CT is 04/21/16. A posterior pleural based mass was noted on the previous examination measuring 6.5 cm. in greatest diameter. This measures about 8.0 cm. in greatest diameter on today's examination and is associated with a small pleural effusion. This abuts the inferior hilum and causes some narrowing of pulmonary veins and pulmonary arteries peripherally. This contains calcification. There are numerous intrapulmonary nodules now visible in all pulmonary lobes which were not present on the previous examination, the largest in the right middle lobe measuring about 10 mm. in greatest diameter. No gross mediastinal mass or adenopathy is seen. No pulmonary embolic disease seen. Tracheobronchial tree appears intact. Right lobe hepatic cyst again noted. No new intrahepatic mass identified. Tiny low attenuation lesions again noted in spleen, unchanged and probably representing cysts. Pancreas is unremarkable in appearance. Adrenals and kidneys appear normal. No gross retroperitoneal or mesenteric adenopathy is seen. There is a large quantity of fecal material throughout the colon, particularly in the rectum. No gross evidence of obstruction at this time. There is a new lesion originating in the left ischial bone which measures up to 8 cm. in diameter which has an appearance consistent with a destructive metastatic lesion with prominent soft tissue component. Destructive lesion also noted associated with the left SI joint. This is also new since the previous examination. Mild diffuse demineralization of the vertebral bodies is seen throughout the thoracic and lumbar region which is nonspecific but which could be associated with metastatic disease. CONCLUSION: 1. Interval increase in size of left pleural based, low attenuation, heterogeneous mass, presumably representing metastasis. 2. Multiple new intrapulmonary metastatic lesions, the largest in the right upper lobe measuring about 10 mm. in diameter. 3. New large destructive bony lesions of left SI joint and left ischium. More widespread bony metastasis may be present as well.
[2018-04-29] MEDS: Omnipaque 350 MG/ML 100 ML BTL IV (12:11)
--- NOTE | 2018-04-29 15:13 | PT.INNT ---
Date of service: 04/29/18 Time of Service: 15:13 PT Notes 04/29/18 Refused PT.
[2018-04-29] MEDS: Normal Saline Flush 10 ML SYR IVP (16:15)
[2018-04-29] MEDS: HYDROcodone 5/Acetaminophen 325 TAB PO (16:15)
--- NOTE | 2018-04-29 18:13 | PCPN_ITS ---
Date of service: 04/29/18 Assessment and Plan (1) Constipation: Current visit: Yes Status: Acute Constipation improved since her CAT scan was done. Will need to continue bowel regimen once discharged (2) Colon cancer metastasized to lung: Current visit: Yes Status: Chronic Imaging today showed progression of her metastatic colon cancer. Lung metastases are now numerous. Her initial pleural metastasis has enlarged as well. She is not having any breathing problems however. (3) Bone metastases: Current visit: Yes Status: Acute She has a large destructive bony metastasis in her left SI joint and ischium. She will need to have ongoing increases in her pain medications to treat this. Given the destructive nature of her bony metastasis, she is at high risk for a fracture if she falls. (4) Cancer related pain: Current visit: Yes Status: Acute Continue on the fentanyl 75 mcg patch for now. Continue to use the morphine for breakthrough pain. I strongly encouraged the patient to take pain medication as she needs it. We may want to consider adding a low-dose steroid to increase her pain treatment. [facility]. She will be enrolled in hospice that day. Subjective Patient reports: still having pain and bowel movement Interval history since last seen: Natalie had a CAT scan of her chest abdomen and pelvis today. That scan showed increased size in her original pleural metastasis. She also has multiple new pulmonary nodules consistent with metastases. She has a large, new destructive lesion of her left SI joint and ischium. She is having quite a bit of pain in that left pelvis. He was disappointed to hear the findings but at the same time said they made sense to her. She has felt her cancer is worsening. Plan remains that she is discharged on May 02 to the community [facility]. We revisited her prognosis today. I saw her yesterday, 04/28/18 to discuss prognosis with her. Her imaging confirmed that she likely has weeks to months, not months to years. Her pain is relatively well controlled on fentanyl patch 75 mcg. She has needed some morphine for breakthrough pain. I encouraged her to stay comfortable. She admits being frightened of dying but overall is not agitated or severely anxious. Her imaging showed a large amount of stool in her colon. She reports that since the CAT scan she has had a large stool larger than I have had in weeks. She feels better now. Exam Narrative Exam Narrative: General: Pale and frail-appearing but lively Eyes: Anicteric HEENT: No rhinorrhea Neck: No lymphadenopathy Respiratory: Clear to auscultation bilaterally. Diminished breath sounds throughout. No pain to palpation of her chest wall Cardiovascular: Heart rate normal. S1-S2 normal. Regular rate Abdomen: She is tender in her left lower quadrant. It appears this is due to her pelvic lesion rather than a GI issue. Extremities: Feet are cool but not mottled. She does have muscle wasting Neuro: She is ANO x3. She is talkative and bright. Psychiatric: She is handling her impending quite well. She says she appreciates all of the love and care she has had from her many friends in the community at large Objective Objective Clinical Data: Abnormal lab results 04/29/18 Range/Units 10:00 Sodium 135 L (136-145) mmol/L Vital Signs Temperature 97.7 F 04/29/18 07:25 Temperature Source Tympanic 04/29/18 07:25 Pulse 78 04/29/18 07:25 Pulse Rhythm Regular 04/15/18 19:45 Respiratory Rate 18 04/29/18 07:25 Respiratory Effort Non-Labored 04/29/18 09:22 Respiratory Depth Normal 04/29/18 09:22 Respiratory Pattern Normal 04/29/18 09:22 Blood Pressure 97/58 L 04/29/18 07:25 Pulse Oximetry 98 04/29/18 07:25 Oxygen Delivery Method Room Air 04/29/18 07:25 Oxygen Flow Rate 0 04/29/18 07:25 Pain Level 6 04/29/18 17:15 Comment 04/17/18 04:00 Intake & Output 04/28/18 04/29/18 04/29/18 23:59 11:59 23:59 Intake Total 240 / 240 270 / 270 Balance 240 / 240 270 / 270 Intake: IV 20 / 20 Oral 240 / 240 250 / 250 Other: Urine Color Yellow Yellow Urine Appearance Clear Clear Stool Size Small Large Stool Characteristics Hard Soft Formed Brown Voiding Methods Diaper Toilet Incontinent Laboratory Results Sodium 135 mmol/L (136-145) L 04/29/18 10:00 Potassium 4.0 mmol/L (3.5-5.1) 04/29/18 10:00 Chloride 98 mmol/L (98-107) 04/29/18 10:00 Carbon Dioxide 30.0 mmol/L (21.0-32.0) 04/29/18 10:00 Anion Gap 7.0 mmol/L (3-11) 04/29/18 10:00 BUN 14 mg/dL (7-18) 04/29/18 10:00 Creatinine 0.65 mg/dL (0.55-1.02) 04/29/18 10:00 Estimated GFR/1.73 m2 >= 60.00 (mL/min/1.73m2) 04/29/18 10:00 Glucose 100 mg/dL (70-100) 04/29/18 10:00 Calcium 9.7 mg/dL (8.5-10.1) 04/29/18 10:00
[2018-04-29 19:43] VITALS: BP 123/74; PULSE 78; RESP 16; TEMP 36.8; O2SAT 97
[2018-04-29] MEDS: Docusate Sodium 100 MG CAP PO (20:00)
[2018-04-29] MEDS: Senna TAB 2 TAB PO (21:46)
[2018-04-29] MEDS: Melatonin 3 MG TAB PO (22:07)
[2018-04-30 07:25] VITALS: BP 114/71; PULSE 77; RESP 18; TEMP 36.8; O2SAT 97
[2018-04-30] MEDS: Magnesium Oxide 400 MG TAB PO (08:15)
[2018-04-30] MEDS: Docusate Sodium 100 MG CAP PO ×2 (08:15→21:49)
[2018-04-30] MEDS: Polyethylene Glycol 3350 17 GM PACKET PO (08:15)
[2018-04-30] MEDS: Normal Saline Flush 10 ML SYR IVP ×3 (10:09→18:25)
--- NOTE | 2018-04-30 10:10 | PT.INNT ---
Date of service: 04/30/18 Time of Service: 10:10 PT Notes 04/30/18 Pt refused today's session she is still experiencing nausea from the contrast from the CT scan yesterday. She would like to rest and try PT tomorrow.
[2018-04-30] MEDS: HYDROcodone 5/Acetaminophen 325 TAB PO (11:32)
[2018-04-30] MEDS: LORazepam 1 MG TAB PO (12:45)
[2018-04-30] MEDS: Ondansetron 4 MG/2 ML VIAL IVP (14:27)
[2018-04-30] MEDS: HYDROcodone 10/Acetaminophen 325 TAB PO ×2 (16:03→21:54)
[2018-04-30] MEDS: fentaNYL 100 MCG PATCH TD (16:15)
[2018-04-30] MEDS: Melatonin 3 MG TAB PO (21:49)
[2018-05-01] MEDS: HYDROcodone 10/Acetaminophen 325 TAB PO (05:33)
[2018-05-01] MEDS: Ondansetron 4 MG/2 ML VIAL IVP ×2 (09:45→15:47)
[2018-05-01] MEDS: Normal Saline Flush 10 ML SYR IVP ×5 (09:46→21:49)
--- NOTE | 2018-05-01 09:50 | PT.INNT ---
Date of service: 05/01/18 Time of Service: 09:50 PT Notes 05/01/18 Pt reports that she has not had a good last couple of days and she is still not feeling well today. She states that she would like to not participate in PT today.
[2018-05-01] MEDS: LORazepam 1 MG TAB PO ×2 (11:25→17:21)
[2018-05-01 11:34] VITALS: BP 103/64; PULSE 63; RESP 18; TEMP 36.4; O2SAT 97
[2018-05-01] MEDS: Senna TAB 2 TAB PO (21:49)
[2018-05-01] MEDS: Melatonin 3 MG TAB PO (21:49)
[2018-05-01] MEDS: Docusate Sodium 100 MG CAP PO (21:50)
[2018-05-02] MEDS: Normal Saline Flush 10 ML SYR IVP ×3 (00:51→10:16)
--- NOTE | 2018-05-02 02:09 | NUR.NOTE ---
Nursing Note: This patient did not void the last shift and has not had a documented void for several hours prior to that. A bladder scan was done and showed nearly 500cc of urine in the bladder. When the patient was asked to get up and try to void the patient declined stating she was comfortable and did not feel as if she needed to void at this time. Education was provided that with the amount of opioid medications she is taking to control her pain that there is a possibility that it is affecting her ability to tell when she needs to void. Also, explained that she may need to be catheterized to drain the urine. Patient stated that she was comfortable again and that she would attempt to void in a few hours. Per patient's wishes she was left alone to sleep
--- NOTE | 2018-05-02 08:03 | PT.INDS ---
Date of service: 05/02/18 Time of Service: 08:04 PT Notes Inpatient Physical Therapy Discharge Summary Date: 05/02/18 Dates of Service: 04/20/18-04/27/18 SUBJECTIVE: NT OBJECTIVE: Bed Mobility/Transfers: Supine-sit: independent Sit-stand: SBA with FWW Stand-sit: SBA Gait: SBA with FWW [id number] Balance: Static Sitting: normal Dynamic Sitting: normal Static Standing: fair Dynamic Standing: fair Assessment: Pt is a 72yr old female admitted with colon cancer s/p resection metastasized to the lung and conjunctivitis with urinary incontinence, fecal incontinence, malnutrition. Patient participation in therapy session varies day to day depending on her fatigue and pain. She refused treatments the last 5 days. Pt had progressed from CGA standing transfers to SBA, from CGA gait with FWW 3 steps to SBA gait with FWW [id number]. Dynamic standing balance improved from poor to fair during her participation with therapy. Pt is being discharged to Hospice correction, discharge PT services. UPDATED GOALS: x 1 week 1. Sit-stand: supervision with FWW 2. Stand-sit: supervision 3. Bed-chair: supervision with FWW 4. Chair-bed: supervision with FWW 5. Gait: supervision with FWW 200ft 6. independent with home exercise program Pt did not meet goals due to refusal to participate in therapy sessions and weakness. DISCHARGE RECOMMENDATIONS: Plan is [facility] 05[facility], FWW recommended for gait mobility G Codes in the area mobility of walking and moving around:projected status GP [id number]. Discharge status (if discharging) GP [id number] CK Jyoti Ryder PT
--- NOTE | 2018-05-02 10:48 | DSE_ITS ---
Date of service: 05/02/18 Time of Service: 10:46 DS: Diagnosis Discharge Diagnosis (1) Constipation: Status: Acute (2) Colon cancer metastasized to lung: Status: Chronic (3) Bone metastases: Status: Acute (4) Cancer related pain: Status: Acute Discharge Plan Disposition Patient Disposition: OTHER Condition: Deteriorating Discharge Details Reason For Visit: METASTATIC COLON CA, FAILURE TO THRIVE Admit Date/Time: 04/12/18 13:13 Admit Provider: Harish Sidhu Attending Provider: Harish Sidhu Primary Care Provider: Hansel Casillas [facility] Hospital Course: Magalis is a 72-year-old woman with history of metastatic colon cancer status post resection who was previously on oral chemotherapy and presented to the emergency department on 04/12/2018 with generalized weakness. Prior to her presentation her weakness had become so severe that she had remained in bed for roughly 5-6 days. At one point she attempted to get up and fell to the floor. After 3-4 attempts of getting back to bed she finally gave up. It was several days before a friend found her. At that point she was covered in stool and urine. Her friend activated EMS and she was transported to the emergency department where she was found to be dehydrated and hypokalemic. She also had an acute kidney injury. While on telemetry had a symptomatic run of nonsustained VT. 12-lead EKG showed normal sinus rhythm with no ischemic changes. Chest x-ray revealed a posterior left chest mass with no infiltrate. Was given IV fluids and seen by Dr. Calderón, palliative care, who discussed goals of care and CODE STATUS. It was determined that she would be admitted to swing bed status with plans to discharge on hospice. Throughout her hospitalization she experienced somewhat severe constipation that was thought to be secondary to opiate use. Was started on good bowel regimen including scheduled Colace and MiraLAX in addition to as needed milk of magnesia. On 04/28/2018 she requested to see Dr. Calderón to discuss her prognosis as she felt significant improvement in her weakness. At that point had regained adequate nutrition and hydration. The decision was made to proceed with repeat imaging as this had not been completed in several months. CT of the chest abdomen and pelvis was obtained on 04/29/2018 and showed an interval increase in the size of a left pleural mass, previously 6.5 cm and had grown to 8 cm in diameter. There were also multiple new intrapulmonary metastatic lesions, the largest in the right upper lobe measuring 10 mm in diameter. There were also new large destructive bony lesions of the left SI joint and left ischium with more widespread bony metastasis. This further confirmed Magalis's decision to proceed with comfort measures and hospice. Home Meds and New Rx's Prescriptions: New sennosides [Senokot] 8.6 mg Tablet 2 tab PO HS Qty: 0 RF: 0 nystatin 100,000 unit/mL Suspension 500,000 units PO TID Qty: 0 RF: 0 acetaminophen [Tylenol] 325 mg Tablet 325 - 650 mg PO Q4H PRN PRNQty: 0 RF: 0 acetaminophen [Acephen] 650 mg Suppository 650 mg [place] Q4H PRN PRNQty: 0 RF: 0 ipratropium-albuterol 0.5 mg-3 mg(2.5 mg base)/3 mL Solution For Nebulization 3 ml UPD Q6H PRN PRNQty: 0 RF: 0 albuterol sulfate 2.5 mg /3 mL (0.083 %) Solution For Nebulization 2.5 mg UPD Q2H PRN PRNQty: 0 RF: 0 polyethylene glycol 3350 17 gram Powder In Packet 17 g PO DAILY Qty: 0 RF: 0 lorazepam 2 mg/mL Solution 0.5 - 1 mg IV/SC Q1H PRN PRN (Reason: Anxiety) Qty: 0 RF: 0 hydrocodone-acetaminophen 10-325 mg Tablet 1 tab PO QID PRN PRNQty: 0 RF: 0 magnesium oxide 400 mg (241.3 mg magnesium) Tablet 400 mg PO DAILY Qty: 0 RF: 0 magnesium hydroxide [Milk of Magnesia] 400 mg/5 mL Suspension 30 ml PO DAILY PRN PRNQty: 0 RF: 0 fentanyl [Duragesic] 100 mcg/hr Patch 72 Hour 100 mcg Transdermal Q72H Qty: 0 RF: 0 promethazine 25 mg/mL Solution 25 mg IM Q4H PRN PRNQty: 0 RF: 0 docusate sodium [Colace] 100 mg Capsule 100 mg PO TID Qty: 0 RF: 0 alum-mag hydroxide-simeth [Mag-Al Plus] 200-200-20 mg/5 mL Suspension 30 ml PO Q2H PRN PRNQty: 0 RF: 0 lorazepam 1 mg Tablet 0.5 - 1 mg PO Q1H PRN PRN (Reason: Anxiety) Qty: 0 RF: 0 white petrolatum-mineral oil [Eucerin] Cream 1 applic Topical PRN PRN (Reason: dry skin) Qty: 0 RF: 0 melatonin 3 mg Tablet Extended Release 3 mg PO HS Qty: 0 RF: 0 carboxymethylcellulose sodium [Refresh Plus] 0.5 % Dropperette 1 ea OU PRN PRNQty: 0 RF: 0 dimethicone-zinc oxide [Glory Protect] Cream Topical PRN PRNQty: 0 RF: 0 ondansetron HCl (PF) 4 mg/2 mL Solution 4 mg IVP Q4H PRN PRNQty: 0 RF: 0 morphine 4 mg/mL Solution 2 - 3 mg IVP Q1H PRN PRNQty: 0 RF: 0 Patch Removal [Remove Patch] 1 ea Transdermal Q72H Qty: 0 RF: 0 Discontinued multivitamin 1 EACH capsule 1 ea PO DAILY RF: 0 capecitabine 500 mg Tablet 2 - 3 tab PO DIRECTED RF: 0 Discharge Instructions Instructions: Hospice Care (GEN) Activity:: Activity as Tolerated Equipment/Supplies:: No Equipment Needed Diet:: As Tolerated Discharge Orders Discharge Orders: Discharge Order (Routine); Ordered 05/02/18 Ordered By: Leesa Love Exam Narrative Exam Narrative: General: Pale and frail-appearing but lively Eyes: Anicteric HEENT: No rhinorrhea Neck: No lymphadenopathy Respiratory: Clear to auscultation bilaterally. Diminished breath sounds throughout. No pain to palpation of her chest wall Cardiovascular: Heart rate normal. S1-S2 normal. Regular rate Abdomen: She is tender in her left lower quadrant. It appears this is due to her pelvic lesion rather than a GI issue. Extremities: Feet are cool but not mottled. She does have muscle wasting Neuro: She is A&O x3. She is talkative and bright. DS: Data Vitals/I&O Vitals and I&O: Vital Signs Temperature 36.4 C L 05/01/18 11:34 Temperature Source Tympanic 05/01/18 11:34 Pulse 63 05/01/18 11:34 Pulse Rhythm Regular 04/15/18 19:45 Respiratory Rate 18 05/01/18 11:34 Respiratory Effort Non-Labored 05/02/18 07:50 Respiratory Depth Normal 05/02/18 07:50 Respiratory Pattern Normal 05/02/18 07:50 Blood Pressure 103/64 05/01/18 11:34 Pulse Oximetry 97 05/01/18 11:34 Oxygen Delivery Method Room Air 05/01/18 11:34 Oxygen Flow Rate 0 05/01/18 11:34 Pain Level 4 05/02/18 05:30 Comment 04/17/18 04:00 Intake & Output 05/01/18 05/01/18 05/02/18 11:59 23:59 11:59 Intake Total 180 / 180 312 / 312 Balance 180 / 180 312 / 312 Intake: IV Oral 150 / 150 300 / 300 Other: Urine Odor Strong Comment dietary internship toileted pt. but still no void Incontinent small amount in brief. Stool Size Large Stool Characteristics Soft Formed Brown Emesis Description Clear/Water Voiding Methods Toilet Bedside Commode Bedside Commode Diaper Incontinent PFSH Colon cancer metastasized to lung (Chronic) Colon cancer (Chronic) Frequent falls (Acute) History of herniated intervertebral disc (Acute) Hunger, thirst, exposure, and neglect (Acute) Malignant cachexia (Acute) Poor self monitoring (Acute) History of colon resection (Chronic) H/O dilation and curettage (Acute) Social History adopted: No caregiver/support person: No foster care: No household members: none housing: house lives independently: Yes number of children: 0 longterm: No current occupational status: retired pets and animals: Yes leisure activities: reading and volunteer work details: very interested in politics Hx Recent Travel: No well-balanced diet: rarely or never reads food labels: sometimes during the past year weight has: decreased > 10 lbs Smoking/Tobacco Use Status: Former Tobacco Use
--- NOTE | 2018-05-02 11:45 | PDOC.CMDIS ---
- If Service Date Differs Date of service: 05/02/18 Time of Service: 11:46 LACE Index Scoring Tool - Questions: Length of Stay (in days): 14 or more Acuity (Admit via E.D.?): Yes Comorbidities: Metastatic Solid Tumor E.D. Visits: 1 - Answers: Total Score: 16 Risk of Readmission: High Risk Care Management Discharge Reason for Hospitalization: Metastatic colon CA, failure to thrive. Discharge Plan: [place] will discharge to [facility] hospice when medically ready per MD. Natalie will transport via private vehicle with friends. Patient/Family Education Needs: Discharge education, any limitations, and follow up plan of care. Ask Me Three discussion. Services Needed at Discharge: Home Health Care Services (Home Hospice through [facility]. )
--- NOTE | 2018-05-02 11:49 | CMDISCH_ITS ---
- If Service Date Differs Date of service: 05/02/18 Time of Service: 11:46 LACE Index Scoring Tool - Questions: Length of Stay (in days): 14 or more Acuity (Admit via E.D.?): Yes Comorbidities: Metastatic Solid Tumor E.D. Visits: 1 - Answers: Total Score: 16 Risk of Readmission: High Risk Care Management Discharge Reason for Hospitalization: Metastatic colon CA, failure to thrive. Discharge Plan: [place] will discharge to [facility] hosp[facility] when medically ready per MD. Natalie will transport via private vehicle with friends. Patient/Family Education Needs: Discharge education, any limitations, and follow up plan of care. Ask Me Three discussion. Services Needed at Discharge: Home Health Care Services (Home Hospice through [facility]. )
== END 2018-05-02 11:38 | disposition other institution (70) | DRG 640 ==
PROVIDERS: Nurse Practitioner; Admitting Provider Internal Medicine; PCP General Practice; Visit Provider Internal Medicine
DX: R62.7 Adult failure to thrive (principal); E43 Unspecified severe protein-calorie malnutrition; C18.9 Malignant neoplasm of colon, unspecified; C78.00 Secondary malignant neoplasm of unspecified lung; C79.51 Secondary malignant neoplasm of bone; Z68.1 Body mass index [BMI] 19.9 or less, adult; G89.3 Neoplasm related pain (acute) (chronic); K59.00 Constipation, unspecified; R53.1 Weakness; H10.33 Unspecified acute conjunctivitis, bilateral; Z51.5 Encounter for palliative care; Z66 Do not resuscitate; Z71.89 Other specified counseling; Z60.2 Problems related to living alone
CPT/HCPCS: 36415; 74177; 80048; 97110; 97163; 97530; 99232; 99239; 99305; 99308; 99309; 99316; NC; 71260; J2060; J2405; J3490